=== PATIENT | female | born 1980 | race Caucasian/White ===

== ENCOUNTER 2019-07-13 10:59 | Emergency (ER) | payer BC ==
[2019-07-13 11:56] LABS: Urine Blood TRACE (NEG); Urine Glucose NEGATIVE (NEG); Urine Protein NEGATIVE (NEG); Urine pH 5.5 (5.0-7.0)
[2019-07-13] MEDS ORDERED: KETOROLAC 30 MG/ML INJ ONE (12:08)
[2019-07-13 12:42] LABS: Urine Bacteria <20 /HPF (<20); Urine Culture Reflex Order NOT NEEDED; Urine RBC <5 /HPF (NONE SEEN)
--- NOTE | 2019-07-13 13:19 | ER ---
Nurse's Notes [facility] Name: Amanda Ingram Age: 38 yrs Sex: Female : 1980 Arrival Date: 07/13/2019 Time: 11:03 Bed 19 Private MD: Diagnosis: Pelvic muscle wasting;Pelvic and perineal pain Presentation: 07/13 11:14 Presenting complaint: Patient states: something is wrong with my bladder, i went to [facility] urgent care yesterday, they did the stick test on my urine, they gave me my $ back because they couldn't culture my urine, i feel like my bladder has dropped and i feel a lot of pressure, i feel like i have to pee all the time. dave tried the azo otc and i just got antibiotics for strep. Transition of care: patient was not received from another setting of care. Onset of symptoms was July 13, 2019. Risk Assessment: Do you want to hurt yourself or someone else? Patient reports no desire to harm self or others. Initial Sepsis Screen: Does the patient meet any 2 criteria? No. Patient's initial sepsis screen is negative. Does the patient have a suspected source of infection? No. Patient's initial sepsis screen is negative. Care prior to arrival: None. 11:14 Method Of Arrival: Ambulatory tw2 11:14 Acuity: JAQUAN 3 tw2 Triage Assessment: 11:15 General: Appears in no apparent distress. uncomfortable, well groomed, Behavior is tw2 calm, cooperative, appropriate for age. Pain: Complains of pain in pelvis. : Reports burning with urination, pain with urination, and pressure in vaginal area "i feel like my bladder has dropped" urinary frequency. 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 - Coronavirus screen:: The patient has NOT traveled to [place], [place], or [place] in the past 14 days. - Social history:: Smoking status: . - Ebola Screening: : Patient denies travel to an Ebola-affected area in the 21 days before illness onset. Screenin:10 Abuse screen: Denies threats or abuse. Nutritional screening: No deficits noted. Tuberculosis screening: No symptoms or risk factors identified. Fall Risk None identified. Assessment: 11:59 General: Appears uncomfortable, Behavior is calm, cooperative, appropriate for age. Pain: Complains of pain in groin and suprapubic area Pain does not radiate. Pain currently is 6 out of 10 on a pain scale. Quality of pain is described as pressure, Pain began Wednesday Is continuous, Alleviated by nothing. Neuro: Level of Consciousness is awake, alert, obeys commands, Oriented to person, place, time, situation. Cardiovascular: Heart tones S1 S2 present Capillary refill < 3 seconds Pulses are all present. are palpable in right radial artery, right dorsalis pedis artery, left radial artery and left dorsalis pedis artery. Respiratory: Airway is patent Breath sounds are clear bilaterally. GI: Abdomen is distended, Bowel sounds present X 4 quads. Abdomen is tender to palpation suprapubic area Patient currently denies nausea. : Bladder is distended Reports pressure and frequency. EENT: No signs and/or symptoms were reported regarding the EENT system. Derm: Skin is intact, Skin is dry, Skin is pink, warm \\T\\ dry. Musculoskeletal: No deficits noted. Vital Signs: 11:16 BP 129 / 102; Pulse 108; Resp 17; Temp 97.3(TE); Pulse Ox 96% on R/A; Weight 111.13 kg tw2 (R); Height 5 ft. 9 in. (175.26 cm); Pain 6/10; 12:37 BP 111 / 59; Pulse 90; Resp 18; Pulse Ox 95% on R/A; ah 13:03 BP 124 / 86; Pulse 94; Resp 16; Pulse Ox 97% ; sv 11:16 Body Mass Index 36.18 (111.13 kg, 175.26 cm) tw2 ED Course: 11:03 Patient arrived in ED. mr 11:15 Triage completed. tw2 11:15 Arm band placed on. tw2 11:49 Mariela Gustafson [facility]C [facility]. snw 11:49 Alexander Sun MD is Attending Physician. snw 11:49 Matilda Latham, MARIA T is Primary Nurse. 12:08 Urine Microscopic Only Sent. sv 12:08 Urine Culture Sent. sv 12:08 Urine Dipstick--Ancillary (enter results) Sent. sv 12:10 Patient has correct armband on for positive identification. Bed in low position. Call light in reach. 13:28 No provider procedures requiring assistance completed. Patient did not have IV access sv during this emergency room visit. Administered Medications: 12:07 Drug: TORadol 30 mg Route: IM; Site: right deltoid; sv 13:29 Follow up: Response: No adverse reaction sv Outcome: 13:18 Discharge ordered by . snw 13:29 Discharged to home ambulatory. sv 13:29 Condition: stable 13:29 Discharge instructions given to patient, Instructed on discharge instructions, follow up and referral plans. medication usage, sitz bath with baking soda on a towel. Demonstrated understanding of instructions, follow-up care, medications, Prescriptions given X 2. 13:30 Patient left the ED. sv Signatures: Jenny Bassett, RN RN Mariela Gustafson, QUOTER-C QUOTER-Csnw Citlali Gutierrez Blanche Garsia, RN RN tw2 Matilda Latham, RN RN
--- NOTE | 2019-07-13 13:20 | EDPHYS ---
Physician Documentation [facility] Name: Amanda Ingram Age: 38 yrs Sex: Female : 1980 Arrival Date: 07/13/2019 Time: 11:03 Bed 19 Private MD: ED Physician Alexander Sun HPI: 07/13 11:59 This 38 yrs old Female presents to ER via Ambulatory with complaints of snw Urinary Problem. 11:59 Onset: The symptoms/episode began/occurred acutely. Associated signs and symptoms: snw Pertinent positives: heaviness/pressure in suprapubic area. The patient has not experienced similar symptoms in the past. The patient has been recently seen by a physician: with different complaint(s), the patient was seen for Sinusitis, finished Augmentin, The patient has been recently seen at an urgent care, today, for similar complaints, and was sent to the [facility] Emergency Department for further evaluation. 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 - Coronavirus screen:: The patient has NOT traveled to [place], [place], or [place] in the past 14 days. - Social history:: Smoking status: . - Ebola Screening: : Patient denies travel to an Ebola-affected area in the 21 days before illness onset. ROS: 11:57 Constitutional: Negative for fever, chills, and weight loss, Eyes: Negative for injury, snw pain, redness, and discharge, ENT: Negative for injury, pain, and discharge, Neck: Negative for injury, pain, and swelling, Cardiovascular: Negative for chest pain, palpitations, and edema, Respiratory: Negative for shortness of breath, cough, wheezing, and pleuritic chest pain, Abdomen/GI: Negative for abdominal pain, nausea, vomiting, diarrhea, and constipation, Back: Negative for injury and pain, MS/Extremity: Negative for injury and deformity, Skin: Negative for injury, rash, and discoloration, Neuro: Negative for headache, weakness, numbness, tingling, and seizure, Psych: Negative for depression, anxiety, suicide ideation, homicidal ideation, and hallucinations. 11:57 : Positive for urinary symptoms, burning with urination, partial hyst, sensation of heaviness and pulling in suprapubic area. Pt just finished Augmentin and has been taking Azo and yeast meds without relief. Exam: 11:56 Head/Face: Normocephalic, atraumatic. Eyes: Pupils equal round and reactive to light, snw extra-ocular motions intact. Lids and lashes normal. Conjunctiva and sclera are non-icteric and not injected. Cornea within normal limits. Periorbital areas with no swelling, redness, or edema. ENT: Nares patent. No nasal discharge, no septal abnormalities noted. Tympanic membranes are normal and external auditory canals are clear. Oropharynx with no redness, swelling, or masses, exudates, or evidence of obstruction, uvula midline. Mucous membranes moist. Neck: Trachea midline, no thyromegaly or masses palpated, and no cervical lymphadenopathy. Supple, full range of motion without nuchal rigidity, or vertebral point tenderness. No Meningismus. Chest/axilla: Normal chest wall appearance and motion. Nontender with no deformity. No lesions are appreciated. 11:56 Respiratory: Lungs have equal breath sounds bilaterally, clear to auscultation and percussion. No rales, rhonchi or wheezes noted. No increased work of breathing, no retractions or nasal flaring. Back: No spinal tenderness. No costovertebral tenderness. Full range of motion. 11:56 Skin: Warm, dry with normal turgor. Normal color with no rashes, no lesions, and no evidence of cellulitis. MS/ Extremity: Pulses equal, no cyanosis. Neurovascular intact. Full, normal range of motion. Neuro: Awake and alert, GCS 15, oriented to person, place, time, and situation. Cranial nerves II-XII grossly intact. Motor strength 5/5 in all extremities. Sensory grossly intact. Cerebellar exam normal. Normal gait. Psych: Awake, alert, with orientation to person, place and time. Behavior, mood, and affect are within normal limits. 11:56 Constitutional: The patient appears alert, awake, anxious, obese, uncomfortable. 11:56 Cardiovascular: Rate: tachycardic, Rhythm: regular, Pulses: no pulse deficits are appreciated. 11:56 Abdomen/GI: Inspection: gravid appearance, is noted, obese Bowel sounds: normal, Palpation: mild abdominal tenderness, in the suprapubic area. 13:16 : external genitalia normal, no candidal appearance, no rash, no lesions. snw Vital Signs: 11:16 BP 129 / 102; Pulse 108; Resp 17; Temp 97.3(TE); Pulse Ox 96% on R/A; Weight 111.13 kg tw2 (R); Height 5 ft. 9 in. (175.26 cm); Pain 6/10; 12:37 BP 111 / 59; Pulse 90; Resp 18; Pulse Ox 95% on R/A; ah 13:03 BP 124 / 86; Pulse 94; Resp 16; Pulse Ox 97% ; sv 11:16 Body Mass Index 36.18 (111.13 kg, 175.26 cm) tw2 MDM: 11:50 Patient medically screened. snw 13:20 Data reviewed: vital signs, nurses notes. Data interpreted: Pulse oximetry: on room air snw is 97 %. Interpretation: normal. Counseling: I had a detailed discussion with the patient and/or guardian regarding: the historical points, exam findings, and any diagnostic results supporting the discharge/admit diagnosis, the presence of at least one elevated blood pressure reading (>120/80) during this emergency department visit, lab results, radiology results, the need for outpatient follow up, to return to the emergency department if symptoms worsen or persist or if there are any questions or concerns that arise at home. Response to treatment: the patient's symptoms have mildly improved after treatment. Special discussion: Based on the history and exam findings, there is no indication for further emergent testing or inpatient evaluation. I discussed with the patient/guardian the need to see the OB Gyne specialist for further evaluation of the symptoms. 07/13 11:50 Order name: Urine Culture [facility] 07/13 11:50 Order name: Urine Microscopic Only sn 07/13 11:54 Order name: Urine Dipstick--Ancillary (enter results) em1 07/13 11:57 Order name: Urine Dipstick-Ancillary; Complete Time: 12:00 EDMS 07/13 12:44 Order name: Urine Microscopic Only; Complete Time: 12:49 EDMS 07/13 11:50 Order name: Urine Dipstick-Ancillary (obtain specimen); Complete Time: 11:51 snw Administered Medications: 12:07 Drug: TORadol 30 mg Route: IM; Site: right deltoid; sv 13:29 Follow up: Response: No adverse reaction sv Disposition: 16:31 Co-signature as Attending Physician, Alexander Sun MD. rn Disposition: 07/13/19 13:18 Discharged to Home. Impression: Pelvic muscle wasting, Pelvic and perineal pain. - Condition is Stable. - Discharge Instructions: Pelvic Pain, Female, Pelvic Organ Prolapse, Heat Therapy. - Prescriptions for Mobic 7.5 mg Oral Tablet - take 1 tablet by ORAL route once daily take with food; 20 tablet. Miralax 17 gram/dose Oral - take 1 packet by ORAL route once daily dilute powder in 8 ounces of water or juice; 1 box. - Work release form, Medication Reconciliation Form, Thank You Letter, Antibiotic Education, Prescription Opioid Use form. - Follow up: Emergency Department; When: As needed; Reason: Worsening of condition. Follow up: Private Physician; When: 2 - 3 days; Reason: Recheck today's complaints, Continuance of care, Re-evaluation by your physician. Signatures: Dispatcher [employer] Jenny Womack RN RN sv Therrien, Shelly, TELEPHONE ADVICE NURSE-C TELEPHONE ADVICE NURSE-Csnw Alexander Sun MD MD rn Wise, Tara, RN RN tw2 Corrections: (The following items were deleted from the chart) 13:30 13:18 07/13/2019 13:18 Discharged to Home. Impression: Pelvic muscle wasting; Pelvic sv and perineal pain. Condition is Stable. Forms are Medication Reconciliation Form, Thank You Letter, Antibiotic Education, Prescription Opioid Use. Follow up: Emergency Department; When: As needed; Reason: Worsening of condition. Follow up: Private Physician; When: 2 - 3 days; Reason: Recheck today's complaints, Continuance of care, Re-evaluation by your physician. snw
[2019-07-13 13:42] VITALS: TEMP 97.3
[2019-07-13 13:45] VITALS: BP 124/86; O2SAT 97
== END 2019-07-13 13:30 | disposition home or self-care (01) ==
LOC: ER 10:59
DX: N81.84 Pelvic muscle wasting (principal)
CPT/HCPCS: 81003; 81015; 87086; 87088; 96372; 99283

== ENCOUNTER 2024-05-18 14:43 | Emergency (ER) | payer BC ==
--- OUTSIDE RECORDS SUMMARY | 2024-05-18 14:46 | XMS REPORT | Continuity of Care Document ---
Author Name Unknown Address [address] [facility] Address 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 Name Role Phone OSMIN MARÍA Attending Clinician Unavailable ALANIS REDDY Attending Clinician UnavailJAIME Chino Attending Clinician Unavailable YOGESH GHOSH Attending Clinician Unavailable YEN Attending Clinician Unavailable JEFF MORRISON Attending Clinician Unavailab le LAB90 Attending Clinician Unavailable SIMIN LEBRON Attending Clinician Unavailable ESDRAS FORTUNE Attending Clinician Unavailable WILMER MARS Attending Clinician Unava ilALYSA Tejada Attending Clinician Unavailable BASILIA KAM Attending Clinician Unavailable MD PETE Attending Clinician Unavailab mark HAJI, BDElliott Attending Clinician Unavailable Payers Payer Name Policy Type Policy Number Effective Date Expirati on Date Source [facility] 2 [id number] 2022 00:00:00 Problems Condition Name Condition Details Condition Category Status Onset Date Resolution Date Last Treatment Date Treating Clinician Comments Source Hypothyroi dism Hypothyroi dism Disease Active 09-09 00:00: 00 Allie Mckeon Externa amairani BMI 37.0-37.9, adult BMI 37.0-37.9, adult Disease Active 09-09 00:00: 00 Allie Mckeon Externa amairani Mood disorder Mood disorder Disease Active 09-09 00:00: 00 Allie Mckeon Externa amairani ARMANDO (generaliz ed anxiety disorder) ARMANDO (generaliz ed anxiety disorder) Disease Active 09-09 00:00: 00 Allie Seybold - Externa l Social History Social Habit Start Date Stop Date Quantity Comments Source Gender identity Fouzia bel Garcia - External Sexual orientation Kira dariel Garcia - External History of tobacco use Cigarette Smoker Allie Violeta patel - External ASSERTION Not Allie Jose - External Alcoholic beverage intake 2024-02-22 00:00:00 2024-02-22 00:00:00 .14 /d Allie Garcia - External Cigarettes smoked current (pack per day) - Reported 2024-02-22 00:00:00 2024-02-22 00:00:00 Allie Garcia - External Cigarette pack-years 2024-02-22 00:00:00 2024-02-22 00:00:00 Allie Garcia - External Tobacco use and exposure 2024-02-22 00:00:00 2024-02-22 00:00:00 Smokeless tobacco non-user Allie Garcia - External Alcohol intake 2023-08-25 00:00:00 2023-08-25 00:00:00 Current drinker of alcohol (finding) Allie Garcia - External History of Social function 2023-02-22 00:00:00 2023-02-22 00:00:00 Allie Garcia - External Alcohol Comment 2022-09-08 00:00:00 2022-09-08 00:00:00 socially only Allie Jose - External Sex 2022-08-26 12:55:20 2022-08-26 12:55:20 Female (finding) Allie Garcia - External Sex assigned at 1980 00:00:00 1980 00:00:00 F Allie Garcia - External Smoking Status Start Date Stop Date Source Ex-smoker 2024-02-22 00:00:00 2024-02-22 00:00:00 Kira dariel Garcia - External Medications Ordered Medication Name Filled Medication Name Start Date Stop Date Current Medication? Ordering Clinician Indication Dosage Frequency Signature (SIG) Comments Components Source methylPREDN ISolone 4 MG oral Tablet Therapy Pack 2023-06 0- 00:00: 00 Yes [id number] Take 1 mindy by mouth See Admin Instructio ns Use as directed. Allie Mckeon Externa l Lidocaine HCl (Lidocaine Viscous HCl) 2 % mouth/throa t Solution 2023-06 00:00: 00 Yes [id number] 5 mL swished in the mouth and spit out or swallow every 3 hours (maximum: 4.5 mg/kg [or 300 mg per dose]; 8 doses per 24-hour period). Allie bales Amoxicillin 875 MG oral Tablet 2023-06 00:00: 00 04-02 04:59 :00 Yes [id number] 875mg Q.5D Take 1 tablet (875 mg total) by mouth 2 times daily for 7 days. Allie bales Diethylprop ion HCl CR 75 MG oral TABLET SR 24 HR 03-03 00:00: 00 Yes [id number] 1{tbl} QD Take 1 tablet by mouth daily. Allie bales Cyanocobala min (VIT B12) injection 1,000 mcg 02-21 16:52: 27 No [id number] 1000ug 1,000 mcg, intramuscu lar, ONCE, On Wed02/22/24 at 1630, For 1 dose Allie bales Propranolol HCl 10 MG oral Tablet 02-21 15:52: 32 Yes [id number] 10mg Take 1 tablet (10 mg total) by mouth as needed. Allie bales Tirzepatide (Mounjaro) 12.5 MG/0.5ML subcutaneou s Solution Pen-injecto r 02-21 00:00: 00 Yes [id number] 12.5mg Q1W Inject 0.5 mL (12.5 mg total) into the skin once a week. Allie bales Diethylprop ion HCl CR 75 MG oral TABLET SR 24 HR 02-21 00:00: 00 Yes [id number] 1{tbl} QD Take 1 tablet by mouth daily. Allie bales Phentermine HCl 15 MG oral Capsule 02-08 00:00: 00 02-21 00:00 :00 No [id number] 15mg take 1 capsule by mouth every morning Allie bales Mounjaro 10 MG/0.5ML subcutaneou s Solution Pen-injecto r 7-28 00:00: 00 02-21 00:00 :00 No [id number] Inject 1 injection into the skin once a week for 4 weeks Allie bales Valacyclovi r HCl 1 g oral Tablet 5-31 00:00: 00 Yes [id number] 2000mg Q.5D Take 2 tablets (2,000 mg total) by mouth 2 times daily. Allie bales Phentermine HCl 15 MG oral Capsule 10-28 00:00: 00 Yes [id number] 15mg Take 1 capsule (15 mg total) by mouth every morning. Allie bales Oxybutynin Chloride (Ditropan XL) 5 MG oral TABLET SR 24 HR 10-28 00:00: 00 Yes [id number] 5mg QD Take 1 tablet (5 mg total) by mouth daily. Allie bales Mounjaro 10 MG/0.5ML subcutaneou s Solution Pen-injecto r 20 00:00: 00 Yes [id number] Inject 1 injection into the skin once a week for 4 weeks Allie bales Levothyroxi ne Sodium 150 MCG oral Tablet 10-24 00:00: 00 Yes [id number] 150ug QD Take 1 tablet (150 mcg total) by mouth daily. Allie bales Cranberry (Ellura) 200 MG oral Capsule 10-21 00:00: 00 Yes Take once daily. Allie bales Phentermine HCl 15 MG oral Capsule 30 00:00: 00 10-28 00:00 :00 No [id number] 15mg TAKE 1 CAPSULE BY MOUTH EVERY MORNING Allie bales Nystatin [id number] UNIT/GM apply externally Cream -23 00:00: 00 10-28 00:00 :00 No [id number] Insert 1 suppositor y (100,000 units) into the vagina nightly for 14 nights. Allie bales Amoxicillin -Pot Clavulanate 875-125 MG oral Tablet 18 00:00: 00 10-28 00:00 :00 No [id number] 1{tbl} Take 1 tablet by mouth 2 times daily. Allie bales levoFLOXaci n 750 MG oral Tablet 09-20 00:00: 00 10-28 00:00 :00 No [id number] 750mg Take 1 tablet (750 mg total) by mouth daily. Allie bales Fluconazole 150 MG oral Tablet 09-20 00:00: 00 10-28 00:00 :00 No [id number] 150mg Take 1 tablet (150 mg total) by mouth once a week. Allie bales Nitrofurant oin Monohyd Macro (Macrobid) 100 MG oral Capsule 09-13 00:00: 00 09-20 00:00 :00 No [id number] 100mg Take 1 capsule (100 mg total) by mouth 2 times daily. Allie bales Cephalexin 500 MG oral Capsule 08-24 16:06: 56 08-24 00:00 :00 No TAKE 1 CAPSULE BY MOUTH IN THE MORNING AND AT NOON AND IN THE EVENING Allie bales Propranolol HCl 10 MG oral Tablet 08-24 15:55: 28 Yes [id number] 10mg Take 1 tablet (10 mg total) by mouth as needed. Allie bales Cephalexin 500 MG oral Capsule 08-24 00:00: 00 Yes [id number] TAKE 1 CAPSULE BY MOUTH IN THE MORNING AND AT NOON AND IN THE EVENING. Allie bales Fluconazole 150 MG oral Tablet 08-24 00:00: 00 Yes [id number] Take 1 tab today and then 1 tab in 5 days. Allie bales Phentermine HCl 15 MG oral Capsule 08-24 00:00: 00 Yes [id number] 15mg Take 1 capsule (15 mg total) by mouth every morning. Allie bales Phenazopyri dine HCl 200 MG oral Tablet 08-13 00:00: 10-28 00:00 :00 No 200mg Take 1 tablet (200 mg total) by mouth 3 times daily. Allie bales Valacyclovi r HCl 1 g oral Tablet 08-10 00:00: 00 Yes Allie balse Mounjaro 7.5 MG/0.5ML subcutaneou s Solution Pen-injecto r 08-10 00:00: 00 Yes 7.5mg Inject 0.5 mL (7.5 mg total) into the skin once a week. Allie bales Cyclobenzap rine HCl 10 MG oral Tablet 08-08 00:00: 10-28 00:00 :00 No 10mg Q.[id number] 3D Take 1 tablet (10 mg total) by mouth 3 times daily as needed for muscle spasms. Allie bales Ibuprofen (MOTRIN) 600 MG oral Tablet 08-08 00:00: 10-28 00:00 :00 No 600mg Q.25D Take 1 tablet (600 mg total) by mouth every 6 hours as needed for pain. Allie bales predniSONE (DELTASONE) 10 MG oral tablet 08-08 00:00: 00 08-21 04:59 :00 No Take 4 tablets (40 mg total) by mouth daily for 3 days, THEN 3 tablets (30 mg total) daily for 3 days, THEN 2 tablets (20 mg total) daily for 3 days, THEN 1 tablet (10 mg total) daily for 3 days. Allie bales Propranolol HCl 10 MG oral Tablet 08-04 11:25: 06 Yes [id number] 10mg Take 1 tablet (10 mg total) by mouth as needed. Allie bales Fluconazole 150 MG oral Tablet 08-04 00:00: 00 05:59 :00 No [id number] 150mg Take 1 tablet (150 mg total) by mouth once for 1 dose. Allie bales Fluconazole 150 MG oral Tablet 08-03 00:00: 00 08-24 00:00 :00 No Allie bales Amitriptyli ne HCl 100 MG oral Tablet 07-21 16:59: 24 07-21 00:00 :00 No [id number] 100mg Take 1 tablet (100 mg total) by mouth nightly. Allie bales Escitalopra m Oxalate 20 MG oral Tablet 07-21 16:59: 24 07-21 00:00 :00 No [id number] 20mg Take 1 tablet (20 mg total) by mouth 2 times daily. Allie bales Lamotrigine (LaMICtal) 100 MG oral Tablet 07-21 16:59: 24 07-21 00:00 :00 No [id number] 100mg Take 1 tablet (100 mg total) by mouth 2 times daily. Allie bales Propranolol HCl 10 MG oral Tablet 07-21 16:19: 54 Yes [id number] 10mg Take 1 tablet (10 mg total) by mouth as needed. Allie bales Tirzepatide (Mounjaro) 10 MG/0.5ML subcutaneou s Solution Pen-injecto r 07-21 00:00: 00 Yes [id number] 10mg Inject 0.5 mL (10 mg total) into the skin once a week. Allie bales Amitriptyli ne HCl 100 MG oral Tablet 07-21 00:00: 00 Yes [id number] 100mg QD Take 1 tablet (100 mg total) by mouth nightly. Allie bales Escitalopra m Oxalate 20 MG oral Tablet 07-21 00:00: 00 Yes [id number] 20mg Q.5D Take 1 tablet (20 mg total) by mouth 2 times daily. Allie bales Lamotrigine (LaMICtal) 100 MG oral Tablet 07-21 00:00: 00 Yes [id number] 100mg Q.5D Take 1 tablet (100 mg total) by mouth 2 times daily. Allie bales Ondansetron (ZOFRAN) 4 MG oral TABLET DISPERSIBLE 07-21 00:00: 00 Yes [id number] 4mg Q.[id number] 3D Take 1 tablet (4 mg total) by mouth every 8 hours as needed for nausea. Allie bales Semaglutide -Weight Management (Wegovy) 1.7 MG/0.75ML subcutaneou s Solution Auto-inject or 07-21 00:00: 00 07-21 00:00 :00 No [id number] 1.7mg Inject 1.7 mg into the skin once a week. Allie bales linaCLOtide (Linzess) 145 MCG oral Capsule 07-19 00:00: 00 Yes [id number] 145ug QD Take 1 capsule (145 mcg total) by mouth daily. Allie bales Amitriptyli ne HCl 100 MG oral Tablet 2022-06 14:36: 17 Yes [id number] 100mg Take 1 tablet (100 mg total) by mouth nightly. Allie bales Escitalopra m Oxalate 20 MG oral Tablet 2022-06 14:36: 17 Yes [id number] 20mg Take 1 tablet (20 mg total) by mouth 2 times daily. Allie bales Lamotrigine (LaMICtal) 100 MG oral Tablet 2022-06 14:36: 17 Yes [id number] 100mg Take 1 tablet (100 mg total) by mouth 2 times daily. Allie bales Propranolol HCl 10 MG oral Tablet 2022-06 14:36: 17 Yes [id number] 10mg Take 1 tablet (10 mg total) by mouth as needed. Allie bales methylPREDN ISolone 4 MG oral Tablet Therapy Pack 2022-06 00:00: 00 Yes [id number] 1{mindy} Take 1 mindy by mouth See Admin Instructio ns Use as directed. Allie bales Ibuprofen (MOTRIN) 800 MG oral Tablet 2022-06 00:00: 00 02-21 00:00 :00 No [id number] 800mg Q.25D Take 1 tablet (800 mg total) by mouth every 6 hours as needed for pain. Allie bales Azithromyci n 250 MG oral Tablet 2022-06 00:00: 00 03-22 04:59 :00 No [id number] Take 2 tablets by mouth on day 1 then 1 tablet by mouth daily for 4 days thereafter .. Allie bales Amitriptyli ne HCl 100 MG oral Tablet 02-24 15:30: 07 Yes [id number] 100mg Take 1 tablet (100 mg total) by mouth nightly. Allie bales Escitalopra m Oxalate 20 MG oral Tablet 02-24 15:30: 07 Yes [id number] 20mg Take 1 tablet (20 mg total) by mouth 2 times daily. Allie bales Lamotrigine (LaMICtal) 100 MG oral Tablet 02-24 15:30: 07 Yes [id number] 100mg Take 1 tablet (100 mg total) by mouth 2 times daily. Allie bales Propranolol HCl 10 MG oral Tablet 02-24 15:30: 07 Yes [id number] 10mg Take 1 tablet (10 mg total) by mouth as needed. Allie bales Phentermine HCl 15 MG oral Capsule 02-24 00:00: 00 08-24 00:00 :00 No [id number] 15mg Take 1 capsule (15 mg total) by mouth every morning. Allie bales Semaglutide -Weight Management (Wegovy) 1 MG/0.5ML subcutaneou s Solution Auto-inject or 02-24 00:00: 00 07-21 00:00 :00 No [id number] 1mg Inject 1 mg into the skin once a week. Allie bales Linzess 145 MCG oral Capsule 01-25 00:00: 00 Yes [id number] 145ug TAKE 1 CAPSULE(14 5 MCG) BY MOUTH DAILY Allie bales Amitriptyli ne HCl 100 MG oral Tablet 01-08 14:53: 56 Yes [id number] 100mg Take 1 tablet (100 mg total) by mouth nightly Allie bales Escitalopra m Oxalate 20 MG oral Tablet 01-08 14:53: 56 Yes [id number] 20mg Take 1 tablet (20 mg total) by mouth 2 times daily Allie bales Lamotrigine (LaMICtal) 100 MG oral Tablet 01-08 14:53: 56 Yes [id number] 100mg Take 1 tablet (100 mg total) by mouth 2 times daily Allie bales Propranolol HCl 10 MG oral Tablet 01-08 14:53: 56 Yes [id number] 10mg Take 1 tablet (10 mg total) by mouth as needed Allie bales Phenazopyri dine HCl 200 MG oral Tablet 01-08 00:00: 00 07-21 00:00 :00 No [id number] 200mg Q.[id number] 3D Take 1 tablet (200 mg total) by mouth 3 times daily as needed for pain Allie bales Ciprofloxac in HCl (Cipro) 500 MG oral Tablet 01-08 00:00: 00 01-16 04:59 :00 No [id number] 500mg Take 1 tablet (500 mg total) by mouth 2 times daily for 7 days Allie bales Fluconazole 150 MG oral Tablet 01-08 00:00: 00 01-09 04:59 :00 No [id number] 150mg Take 1 tablet (150 mg total) by mouth once for 1 dose Allie bales Amitriptyli ne HCl 100 MG oral Tablet 11-24 14:58: 08 Yes [id number] 100mg Take 1 tablet (100 mg total) by mouth nightly Allie bales Escitalopra m Oxalate 20 MG oral Tablet 11-24 14:58: 08 Yes [id number] 20mg Take 1 tablet (20 mg total) by mouth 2 times daily Allie bales Lamotrigine (LaMICtal) 100 MG oral Tablet 11-24 14:58: 08 Yes [id number] 100mg Take 1 tablet (100 mg total) by mouth 2 times daily Allie bales Propranolol HCl 10 MG oral Tablet 11-24 14:58: 08 Yes [id number] 10mg Take 1 tablet (10 mg total) by mouth as needed. Allie bales linaCLOtide (Linzess) 145 MCG oral Capsule 11-24 00:00: 00 Yes [id number] 145ug Take 1 capsule (145 mcg total) by mouth daily Allie bales Albuterol HFA 108 (90 Base) MCG/ACT IN AERS 11-24 00:00: 00 10-28 00:00 :00 No [id number] 2{puff} Q.25D Inhale 2 puffs into the lungs every 6 hours as needed for wheezing Allie bales Pseudoeph-B romphen-DM 30-2-10 MG/5ML oral Syrup 11-24 00:00: 00 07-21 00:00 :00 No [id number] 10mL Q.25D Take 10 mL by mouth 4 times daily as needed Allie bales Semaglutide -Weight Management (Wegovy) 1 MG/0.5ML subcutaneou s Solution Auto-inject or 11-24 00:00: 00 02-24 00:00 :00 No [id number] 1mg Inject 1 mg into the skin once a week Allie bales Semaglutide -Weight Management (Wegovy) 1 MG/0.5ML subcutaneou s Solution Auto-inject or 11-11 00:00: 00 11-24 00:00 :00 No [id number] 1mg Inject 1 mg into the skin once a week Allie bales Mounjaro 7.5 MG/0.5ML subcutaneou s Solution Pen-injecto r 11-10 00:00: 00 07-21 00:00 :00 No Allie bales Levothyroxi ne Sodium 150 MCG oral Tablet 10-27 13:12: 11 10-27 00:00 :00 No [id number] 150ug Take 1 tablet (150 mcg total) by mouth daily Allie bales Amitriptyli ne HCl 100 MG oral Tablet 10-27 12:52: 30 Yes [id number] 100mg Take 1 tablet (100 mg total) by mouth nightly Allie bales Escitalopra m Oxalate 20 MG oral Tablet 10-27 12:52: 30 Yes [id number] 20mg Take 1 tablet (20 mg total) by mouth 2 times daily Allie bales Lamotrigine (LaMICtal) 100 MG oral Tablet 10-27 12:52: 30 Yes [id number] 100mg Take 1 tablet (100 mg total) by mouth 2 times daily Allie bales Propranolol HCl 10 MG oral Tablet 10-27 12:52: 30 Yes [id number] 10mg Take 1 tablet (10 mg total) by mouth as needed Allie bales Levothyroxi ne Sodium 150 MCG oral Tablet 10-27 00:00: 00 Yes [id number] 150ug Take 1 tablet (150 mcg total) by mouth daily Allie bales Semaglutide -Weight Management (Wegovy) 1 MG/0.5ML subcutaneou s Solution Auto-inject or 10-27 00:00: 00 Yes [id number] 1mg Inject 1 mg into the skin once a week Allie bales Mounjaro 5 MG/0.5ML subcutaneou s Solution Pen-injecto r 10-07 00:00: 00 11-24 00:00 :00 No Allie bales Semaglutide -Weight Management (Wegovy) 0.5 MG/0.5ML subcutaneou s Solution Auto-inject or 10-07 00:00: 00 10-27 00:00 :00 No [id number] .5mg Inject 0.5 mg into the skin once a week Allie bales Propranolol HCl 10 MG oral Tablet 09-09 16:09: 03 Yes [id number] 10mg Take 1 tablet (10 mg total) by mouth as needed Allie bales Lamotrigine (LaMICtal) 100 MG oral Tablet 09-09 16:08: 26 Yes [id number] 100mg Take 1 tablet (100 mg total) by mouth 2 times daily Allie bales Amitriptyli ne HCl 100 MG oral Tablet 09-09 16:07: 03 Yes [id number] 100mg Take 1 tablet (100 mg total) by mouth nightly Allie bales Levothyroxi ne Sodium 150 MCG oral Tablet 09-09 16:07: 03 Yes [id number] 150ug Take 1 tablet (150 mcg total) by mouth daily Allie bales Escitalopra m Oxalate 20 MG oral Tablet 09-09 16:07: 03 Yes [id number] 20mg Take 1 tablet (20 mg total) by mouth 2 times daily Allie bales Nitrofurant oin Monohyd Macro (Macrobid) 100 MG oral Capsule 09-09 00:00: 00 Yes [id number] 100mg Take 1 capsule (100 mg total) by mouth 2 times daily Allie bales Tirzepatide (Mounjaro) 2.5 MG/0.5ML subcutaneou s Solution Pen-injecto r 09-09 00:00: 00 Yes [id number] 2.5mg Inject 0.5 mL (2.5 mg total) into the skin once a week Allie bales Ondansetron (ZOFRAN) 4 MG oral TABLET DISPERSIBLE 09-09 00:00: 00 07-21 00:00 :00 No [id number] 4mg Q.[id number] 3D Take 1 tablet (4 mg total) by mouth every 8 hours as needed for nausea Allie bales Immunizations Ordered Immunization Name Filled Immunization Name Date Status Comments Source Influenza, Injectable, Mdck, Preservative Free, Quadrivalt 2022-02-25 00:00:00 Completed Allie Seybold - External Influenza, Injectable, Mdck, Preservative Free, Quadrivalt 2022-02-25 00:00:00 Completed Allie Seybold - External Influenza, Injectable, Mdck, Preservative Free, Quadrivalt 2022-02-25 00:00:00 Completed Allie Seybold - External Influenza, Injectable, Mdck, Preservative Free, Quadrivalt 2022-02-25 00:00:00 Completed Allie Seybold - External Influenza, Seasonal, Injectable 2021-02-26 00:00:00 Completed Allie Seybold - External Influenza, Seasonal, Injectable 2021-02-26 00:00:00 Completed Allie Seybold - External Influenza, Seasonal, Injectable 2021-02-26 00:00:00 Completed Allie Seybold - External Influenza, Seasonal, Injectable 2021-02-26 00:00:00 Completed Allie Seybold - External Influenza, Seasonal, Injectable, Preservative Free 2021-02-05 00:00:00 Completed Allie Seybold - External Influenza, Seasonal, Injectable, Preservative Free 2021-02-05 00:00:00 Completed Allie Seybold - External Influenza, Seasonal, Injectable, Preservative Free 2021-02-05 00:00:00 Completed Allie Seybold - External Influenza, Seasonal, Injectable, Preservative Free 2021-02-05 00:00:00 Completed Allie Seybold - External Influenza Virus Vaccine, No Preserv, age 6 months and up 2015-05-28 00:00:00 Completed Allie Seybold - External Pneumococcal Vaccine, Polysaccharide 2015-05-28 00:00:00 Completed Allie Seybold - External Influenza Virus Vaccine, No Preserv, age 6 months and up 2015-05-28 00:00:00 Completed Allie Seybold - External Pneumococcal Vaccine, Polysaccharide 2015-05-28 00:00:00 Completed Allie Seybold - External Influenza Virus Vaccine, No Preserv, age 6 months and up 2015-05-28 00:00:00 Completed Allie Seybold - External Pneumococcal Vaccine, Polysaccharide 2015-05-28 00:00:00 Completed Allie Seybold - External Influenza Virus Vaccine, No Preserv, age 6 months and up 2015-05-28 00:00:00 Completed Allie Seybold - External Pneumococcal Vaccine, Polysaccharide 2015-05-28 00:00:00 Completed Allie Seybold - External Influenza, Injectable, Mdck, Preservative Free, Quadrivalent Unknown Completed Allie Seybold - External Influenza, Seasonal, Injectable, Preservative Free Unknown Completed Allie Sey bold - External Influenza, Seasonal, Injectable Unknown Completed Allie Seybold - External Influenza Virus Vaccine, No Preserv, age 6 months and up Unknown Completed Allie S eybold - External Pneumococcal Vaccine, Polysaccharide Unknown Completed Allie Seybol d - External Influenza, Injectable, Mdck, Preservative Free, Quadrivalent Unknown Completed Allie Seybold - External Influenza, Seasonal, Injectable, Preservative Free Unknown Completed Allie Sey bold - External Influenza, Seasonal, Injectable Unknown Completed Allie Seybold - External Influenza Virus Vaccine, No Preserv, age 6 months and up Unknown Completed Allie S eybold - External Pneumococcal Vaccine, Polysaccharide Unknown Completed Allie Seybol d - External Influenza, Injectable, Mdck, Preservative Free, Quadrivalent Unknown Completed Allie Seybold - External Influenza, Seasonal, Injectable, Preservative Free Unknown Completed Allie Sey bold - External Influenza, Seasonal, Injectable Unknown Completed Allie Seybold - External Influenza Virus Vaccine, No Preserv, age 6 months and up Unknown Completed Allie S eybold - External Pneumococcal Vaccine, Polysaccharide Unknown Completed Allie Seybol d - External Influenza, Injectable, Mdck, Preservative Free, Quadrivalent Unknown Completed Allie Seybold - External Influenza, Seasonal, Injectable, Preservative Free Unknown Completed Allie Sey bold - External Influenza, Seasonal, Injectable Unknown Completed Allie Seybold - External Influenza Virus Vaccine, No Preserv, age 6 months and up Unknown Completed Allie S eybold - External Pneumococcal Vaccine, Polysaccharide Unknown Completed Allie Seybol d - External Influenza, Injectable, Mdck, Preservative Free, Quadrivalent Unknown Completed Allie Seybold - External Influenza, Seasonal, Injectable, Preservative Free Unknown Completed Allie Sey bold - External Influenza, Seasonal, Injectable Unknown Completed Allie Seybold - External Influenza Virus Vaccine, No Preserv, age 6 months and up Unknown Completed Allie S eybold - External Pneumococcal Vaccine, Polysaccharide Unknown Completed Allie Seybol d - External Influenza, Injectable, Mdck, Preservative Free, Quadrivalent Unknown Completed Allie Seybold - External Influenza, Seasonal, Injectable, Preservative Free Unknown Completed Allie Sey bold - External Influenza, Seasonal, Injectable Unknown Completed Allie Seybold - External Influenza Virus Vaccine, No Preserv, age 6 months and up Unknown Completed Allie S eybold - External Pneumococcal Vaccine, Polysaccharide Unknown Completed Allie Seybol d - External Influenza, Injectable, Mdck, Preservative Free, Quadrivalent Unknown Completed Allie Seybold - External Influenza, Seasonal, Injectable, Preservative Free Unknown Completed Allie Sey bold - External Influenza, Seasonal, Injectable Unknown Completed Allie Seybold - External Influenza Virus Vaccine, No Preserv, age 6 months and up Unknown Completed Allie S eybold - External Pneumococcal Vaccine, Polysaccharide Unknown Completed Allie Seybol d - External Influenza, Injectable, Mdck, Preservative Free, Quadrivalent Unknown Completed Allie Seybold - External Influenza, Seasonal, Injectable, Preservative Free Unknown Completed Allie y bold - External Influenza, Seasonal, Injectable Unknown Completed Allie Seybold - External Influenza Virus Vaccine, No Preserv, age 6 months and up Unknown Completed Allie S eybold - External Pneumococcal Vaccine, Polysaccharide Unknown Completed Allie Seybol d - External Influenza, Injectable, Mdck, Preservative Free, Quadrivalent Unknown Completed Allie Seybold - External Influenza, Seasonal, Injectable, Preservative Free Unknown Completed Allie y bold - External Influenza, Seasonal, Injectable Unknown Completed Allie Seybold - External Influenza Virus Vaccine, No Preserv, age 6 months and up Unknown Completed Allie S eybold - External Pneumococcal Vaccine, Polysaccharide Unknown Completed Allie Seybol d - External Influenza, Injectable, Mdck, Preservative Free, Quadrivalent Unknown Completed Allie Seybold - External Influenza, Seasonal, Injectable, Preservative Free Unknown Completed Allie Sey bold - External Influenza, Seasonal, Injectable Unknown Completed Allie Seybold - External Influenza Virus Vaccine, No Preserv, age 6 months and up Unknown Completed Allie S eybold - External Pneumococcal Vaccine, Polysaccharide Unknown Completed Allie Seybol d - External Influenza, Injectable, Mdck, Preservative Free, Quadrivalent Unknown Completed Allie Seybold - External AFLURIA TRIVALENT PF(0.5mL) Unknown Completed Allie Seybold - External AFLURIA TRIVALENT MDV Unknown Completed Allie Mcdanielold - External Influenza Virus Vaccine, No Preserv, age 6 months and up Unknown Completed Allie Rader eybold - External Pneumococcal Vaccine, Polysaccharide Unknown Completed Allie Mcdanielol d - External AFLURIA TRIVALENT MDV Unknown Completed Allie Garcia - External Influenza, Injectable, Mdck, Preservative Free, Quadrivalent Unknown Completed Allie Garcia - External AFLURIA TRIVALENT PF(0.5mL) Unknown Completed Allie Garcia - External AFLURIA TRIVALENT MDV Unknown Completed Allie Mcdanielold - External Influenza Virus Vaccine, No Preserv, age 6 months and up Unknown Completed Allie Rader eybold - External Pneumococcal Vaccine, Polysaccharide Unknown Completed Allie Mcdanielol d - External AFLURIA TRIVALENT MDV Unknown Completed Allie Garcia - External Vital Signs Vital Name Observation Time Observation Value Comments S ource Systolic blood pressure 2024-02-22 20:46:00 110 mm[Hg] Allie Seybo ld - External Diastolic blood pressure 2024-02-22 20:46:00 78 mm[Hg] Allie Pantojaybo ld - External Heart rate 2024-02-22 20:46:00 82 /min Dariusz redmond Seybold - External Body temperature 2024-02-22 20:46:00 36.61 Alexa Allie Seybold - External Respiratory rate 2024-02-22 20:46:00 15 /min Allie Pantojaybold - External Body height 2024-02-22 20:46:00 175.3 cm Fouzia staples Seybold - External Body weight 2024-02-22 20:46:00 86.183 kg Fouzia staples Seybold - External BMI 2024-02-22 20:46:00 28.06 kg/m2 Fouzia staples Seybold - External Systolic blood pressure 2023-10-29 21:18:00 124 mm[Hg] Allie Seybo ld - External Diastolic blood pressure 2023-10-29 21:18:00 80 mm[Hg] Allie Pantojaybo ld - External Body temperature 2023-10-29 21:18:00 36.22 Alexa Allie Seybold - External Respiratory rate 2023-10-29 21:18:00 14 /min Allie Pantojaybold - External Body height 2023-10-29 21:18:00 175.3 cm Fouzia ey Seybold - External Body weight 2023-10-29 21:18:00 84.369 kg Fouzia ey Seybold - External BMI 2023-10-29 21:18:00 27.47 kg/m2 Fouzia ey Seybold - External Systolic blood pressure 2023-10-22 19:54:00 124 mm[Hg] Allie Seybo ld - External Diastolic blood pressure 2023-10-22 19:54:00 75 mm[Hg] Allie Seybo ld - External Heart rate 2023-10-22 19:54:00 86 /min Kelse y Seybold - External Body temperature 2023-10-22 19:54:00 36.33 Alexa Allie Seybold - External Respiratory rate 2023-10-22 19:54:00 16 /min Allie Seybold - External Body height 2023-10-22 19:54:00 175.3 cm Fouzia ey Seybold - External Body weight 2023-10-22 19:54:00 83.462 kg Fouzia ey Seybold - External BMI 2023-10-22 19:54:00 27.17 kg/m2 Fouzia ey Seybold - External Oxygen saturation in Arterial blood by Pulse oximetry 2023-10-22 19:54:00 99 /min Allie Seybo ld - External Systolic blood pressure 2023-09-21 15:35:00 110 mm[Hg] Allie Seybo ld - External Diastolic blood pressure 2023-09-21 15:35:00 72 mm[Hg] Allie Seybo ld - External Heart rate 2023-09-21 15:35:00 95 /min Kelse y Seybold - External Body temperature 2023-09-21 15:35:00 36.83 Alexa Allie Seybold - External Respiratory rate 2023-09-21 15:35:00 14 /min Allie Seybold - External Body height 2023-09-21 15:35:00 175.3 cm Fouzia ey Seybold - External Body weight 2023-09-21 15:35:00 83.915 kg Fouzia ey Seybold - External BMI 2023-09-21 15:35:00 27.32 kg/m2 Fouzia ey Seybold - External Systolic blood pressure 2023-08-25 20:31:00 110 mm[Hg] Allie Seybo ld - External Diastolic blood pressure 2023-08-25 20:31:00 72 mm[Hg] Allie Seybo ld - External Heart rate 2023-08-25 20:31:00 84 /min Kelse y Seybold - External Body temperature 2023-08-25 20:31:00 36.5 Alexa Allie Seybold - External Respiratory rate 2023-08-25 20:31:00 18 /min Allie Seybold - External Body height 2023-08-25 20:31:00 175.3 cm Fouzia ey Seybold - External Body weight 2023-08-25 20:31:00 86.183 kg Fouzia ey Seybold - External BMI 2023-08-25 20:31:00 28.06 kg/m2 Fouzia ey Seybold - External Oxygen saturation in Arterial blood by Pulse oximetry 2023-08-25 20:31:00 99 /min Allie Seybo ld - External Systolic blood pressure 2023-07-21 22:14:00 116 mm[Hg] Allie Seybo ld - External Diastolic blood pressure 2023-07-21 22:14:00 74 mm[Hg] Allie Seybo ld - External Heart rate 2023-07-21 22:14:00 87 /min Claudiose y Seybold - External Body temperature 2023-07-21 22:14:00 36.56 Alexa Allie Seybold - External Respiratory rate 2023-07-21 22:14:00 14 /min Allie Seybold - External Body height 2023-07-21 22:14:00 175.3 cm Fouzia ey Seybold - External Body weight 2023-07-21 22:14:00 89.359 kg Fouzia ey Seybold - External BMI 2023-07-21 22:14:00 29.09 kg/m2 Fouzia ey Seybold - External Systolic blood pressure 2023-03-16 19:33:00 104 mm[Hg] Allie Seybo ld - External Diastolic blood pressure 2023-03-16 19:33:00 70 mm[Hg] Allie Seybo ld - External Heart rate 2023-03-16 19:33:00 112 /min Kelse y Seybold - External Body temperature 2023-03-16 19:33:00 37 Alexa Allie Seybold - External Respiratory rate 2023-03-16 19:33:00 15 /min Allie Seybold - External Body height 2023-03-16 19:33:00 175.3 cm Fouzia ey Seybold - External Body weight 2023-03-16 19:33:00 92.534 kg Fouzia ey Seybold - External BMI 2023-03-16 19:33:00 30.13 kg/m2 Fouzia ey Seybold - External Systolic blood pressure 2023-02-24 20:29:00 103 mm[Hg] Allie Seybo ld - External Diastolic blood pressure 2023-02-24 20:29:00 79 mm[Hg] Allie Seybo ld - External Heart rate 2023-02-24 20:29:00 91 /min Kelse y Seybold - External Body temperature 2023-02-24 20:29:00 37.06 Alexa Allie Seybold - External Respiratory rate 2023-02-24 20:29:00 20 /min Allie Seybold - External Body height 2023-02-24 20:29:00 175.3 cm Fouzia ey Seybold - External Body weight 2023-02-24 20:29:00 92.987 kg Fouzia ey Seybold - External BMI 2023-02-24 20:29:00 30.27 kg/m2 Fouzia ey Seybold - External Oxygen saturation in Arterial blood by Pulse oximetry 2023-02-24 20:29:00 99 /min Allie Seybo ld - External Systolic blood pressure 2023-01-08 19:53:00 110 mm[Hg] Allie Seybo ld - External Diastolic blood pressure 2023-01-08 19:53:00 70 mm[Hg] Allie Seybo ld - External Heart rate 2023-01-08 19:53:00 83 /min Kelse y Seybold - External Body temperature 2023-01-08 19:53:00 36.56 Alexa Allie Seybold - External Body height 2023-01-08 19:53:00 175.3 cm Fouzia ey Seybold - External Body weight 2023-01-08 19:53:00 98.612 kg Fouzia ey Seybold - External BMI 2023-01-08 19:53:00 32.10 kg/m2 Fouzia ey Seybold - External Oxygen saturation in Arterial blood by Pulse oximetry 2023-01-08 19:53:00 98 /min Allie Seybo ld - External Systolic blood pressure 2022-11-24 19:56:00 112 mm[Hg] Allie Seybo ld - External Diastolic blood pressure 2022-11-24 19:56:00 76 mm[Hg] Allie Seybo ld - External Heart rate 2022-11-24 19:56:00 82 /min Kelse y Seybold - External Body temperature 2022-11-24 19:56:00 36.78 Alexa Allie Seybold - External Respiratory rate 2022-11-24 19:56:00 15 /min Allie Seybold - External Body height 2022-11-24 19:56:00 175.3 cm Fouzia ey Seybold - External Body weight 2022-11-24 19:56:00 103.874 kg Fouzia ey Seybold - External BMI 2022-11-24 19:56:00 33.82 kg/m2 Fouzia ey Seybold - External Systolic blood pressure 2022-10-27 17:47:00 112 mm[Hg] Allie Seybo ld - External Diastolic blood pressure 2022-10-27 17:47:00 70 mm[Hg] Allie Seybo ld - External Heart rate 2022-10-27 17:47:00 87 /min Kelse y Seybold - External Body temperature 2022-10-27 17:47:00 36 Alexa Allie Seybold - External Respiratory rate 2022-10-27 17:47:00 16 /min Allie Seybold - External Body height 2022-10-27 17:47:00 175.3 cm Fouzia ey Seybold - External Body weight 2022-10-27 17:47:00 107.775 kg Fouzia ey Seybold - External BMI 2022-10-27 17:47:00 35.09 kg/m2 Fouzia ey Seybold - External Oxygen saturation in Arterial blood by Pulse oximetry 2022-10-27 17:47:00 95 /min Allie Torres ld - External Systolic blood pressure 2022-09-09 20:59:00 126 mm[Hg] Allie Torres ld - External Diastolic blood pressure 2022-09-09 20:59:00 86 mm[Hg] Allie Mcdanielo ld - External Heart rate 2022-09-09 20:59:00 99 /min Dariusz y Jose - External Body temperature 2022-09-09 20:59:00 37.17 Alexa Allie Mcdanielold - External Respiratory rate 2022-09-09 20:59:00 14 /min Allie Garcia - External Body height 2022-09-09 20:59:00 175.3 cm Fouzia Garcia - External Body weight 2022-09-09 20:59:00 114.306 kg Fouzia staples Seybold - External BMI 2022-09-09 20:59:00 37.21 kg/m2 Fouzia staples Seybold - External Procedures Procedure Date / Time Performed Performing Clinicia n Source URINALYSIS NONAUTO W/O SCOPE 2022-09-09 21:16:40 María Fisher Jose - External Encounters Start Date/Time End Date/Time Encounter Type Admission Type Attending [facility] Care Department Encounter ID Source 2024-05-29 16:30:00 2024-05-29 16:30:00 Outpatient MARÍA FISHER [id number] Allie ybamanda 2024-05-01 00:00:00 2024-05-01 00:00:00 Outpatient MARÍA FISHER [id number] Allie Seybamanda 2024-04-24 16:00:00 2024-04-24 16:00:00 Outpatient ALANIS REDDY [id number] Allie Seybamanda 2024-04-21 16:00:00 2024-04-21 16:00:00 Outpatient JAIME NINA [id number] Allie Seybamanda 2024-04-17 00:00:00 2024-04-17 00:00:00 Outpatient MARÍA FISHER [id number] Allie Seybamanda 2024-04-12 00:00:00 2024-04-12 00:00:00 Outpatient HUNDL, MARÍA ALLIE GOMEZ [id number] [facility] 2024-04-03 00:00:00 2024-04-03 00:00:00 Outpatient HUNDL, MARÍA ALLIE GOMEZ [id number] [facility] 2024-03-25 15:00:00 2024-03-25 15:00:00 Outpatient AUGIEYOGESH [facility] [id number] [facility]-25 12:00:00 2024-03-25 12:00:00 Outpatient ALLIE GOMEZ [id number] [facility] 2024-02-22 16:00:00 2024-02-22 16:00:00 Outpatient HUNDL, MARÍA GOMEZ [id number] [facility] 2024-02-22 16:00:00 2024-02-22 16:00:00 Outpatient HUNDL, MARÍA GOMEZ [id number] [facility] 2024-02-08 00:00:00 2024-02-08 00:00:00 Outpatient HUNDL, MARÍA GOMEZ [id number] [facility] 2024-01-06 00:00:00 2024-01-06 00:00:00 Outpatient HUNDL, MARÍA GOMEZ [id number] [facility] 2024-01-03 00:00:00 2024-01-03 00:00:00 Outpatient HUNDL, MARÍA GOMEZ [id number] [facility] 2024-01-01 00:00:00 2024-01-01 00:00:00 Outpatient HUNDL, MAR[id number] [facility] 2023-12-01 00:00:00 2023-12-01 00:00:00 Outpatient HUNDL, MAR[facility]A [facility]OMEZ [id number] [facility] 2023-11-17 00:00:00 2023-11-17 00:00:00 Outpatient GINUR ALLIE GOMEZ [id number] [facility] 2023-11-08 16:30:00 2023-11-08 16:30:00 Outpatient HUNDL, MARÍA GOMEZ [id number] Allie Seybold 2023-11-03 00:00:00 2023-11-03 00:00:00 Outpatient HUNDL, MARÍA GOMEZ [id number] [facility]ie Seybold 2023-10-29 16:30:00 2023-10-29 16:30:00 Outpatient HUNDL, MARÍA GOMEZ [id number] [facility] Seybold 2023-10-24 00:00:00 2023-10-24 00:00:00 Outpatient HUNDL, MARÍA GOMEZ [id number] [facility] Seybold 2023-10-22 15:00:00 2023-10-22 15:00:00 Outpatient MAICOJAIME ALLIE GOMEZ [id number] [facility]ie Seybold 2023-10-21 00:00:00 2023-10-21 00:00:00 Outpatient HUNDL, MARÍA GOMEZ [id number] [facility] Seybold 2023-10-12 00:00:00 2023-10-12 00:00:00 Outpatient HUNDL, MARÍA GOMEZ [id number] [facility] Seybold 2023-10-05 00:00:00 2023-10-05 00:00:00 Outpatient HUNDL, MARÍA GOMEZ [id number] [facility] Seybold 2023-10-01 00:00:00 2023-10-01 00:00:00 Outpatient HUNDL, MARÍA GOMEZ [id number] [facility] Seybold 2023-10-01 00:00:00 2023-10-01 00:00:00 Outpatient HUNDL, MARÍA GOMEZ [id number] [facility]ie Seybold 2023-09-28 00:00:00 2023-09-28 00:00:00 Outpatient HUNDL, MARÍA GOMEZ [id number] [facility] Seybold 2023-09-28 00:00:00 2023-09-28 00:00:00 Outpatient HUNDL, MARÍA GOMEZ [id number] [facility] Seybold 2023-09-27 16:30:00 2023-09-27 16:30:00 Outpatient HUNDL, MARÍA GOMEZ [id number] [facility] Seybold 2023-09-23 00:00:00 2023-09-23 00:00:00 Outpatient HUNDAmairani, MARÍA ALLIE GOMEZ [id number] [facility] Pantojaybamanda 2023-09-21 15:00:00 2023-09-21 15:00:00 Outpatient JEFF MORRISON ALLIE GOMEZ [id number] [facility] 2023-09-21 11:25:00 2023-09-21 11:25:00 Outpatient LAB90 ALLIE GOMEZ [id number] [facility] 2023-09-21 10:30:00 2023-09-21 10:30:00 Outpatient HUNDL, MARÍA GOMEZ [id number] [facility] 2023-09-20 00:00:00 2023-09-20 00:00:00 Outpatient HUNDAmairani, MARÍA GOMEZ [id number] [facility] 2023-09-14 00:00:00 2023-09-14 00:00:00 Outpatient HUNDAmairani, MARÍA GOMEZ [id number] [facility] 2023-09-13 15:50:00 2023-09-13 15:50:00 Outpatient LAB90 ALLIE GOMEZ [id number] [facility] 2023-09-11 13:00:00 2023-09-11 13:00:00 Outpatient ALEXSIMIN ROY ALLIE GOMEZ [id number] [facility] 2023-09-10 00:00:00 2023-09-10 00:00:00 Outpatient HUNDL, MARÍA GOMEZ [id number] [facility] 2023-09-02 00:00:00 2023-09-02 00:00:00 Outpatient PREZASESDRAS [id number] [facility]ie Seybold 2023-09-02 00:00:00 2023-09-02 00:00:00 Outpatient HUNDL, MARÍA GOMEZ [id number] [facility] 2023-08-29 00:00:00 2023-08-29 00:00:00 Outpatient HUNDL, MARÍA GOMEZ [id number] [facility] 2023-08-27 00:00:00 2023-08-27 00:00:00 Outpatient MARÍA FISHER [id number] [facility] ybamanda 2023-08-26 14:30:00 2023-08-26 14:30:00 Outpatient ALLIE GOMEZ [id number] [facility] 2023-08-26 13:00:00 2023-08-26 13:00:00 Outpatient ALLIE GOMEZ [id number] [facility] 2023-08-25 16:20:00 2023-08-25 16:20:00 Outpatient LAB90 ALLIE GOMEZ [id number] [facility] y[facility]anda 2023-08-25 15:30:00 2023-08-25 15:30:00 Outpatient MARÍA FISHER [id number] [facility] 2023-08-09 19:45:00 2023-08-09 19:45:00 Outpatient WILMER MARS [id number] [facility] 2023-08-04 11:30:00 2023-08-04 11:30:00 Outpatient ALYSA ZHANG [id number] [facility] 2023-08-03 17:20:00 2023-08-03 17:20:00 Outpatient PROVIDER, BASILIA GOMEZ [id number] [facility] 2023-08-03 16:25:00 2023-08-03 16:25:00 Outpatient PROVIDER, BASILIA GOMEZ [id number] [facility] 2023-08-03 00:00:00 2023-08-03 00:00:00 Outpatient MARÍA FISHER [id number] Allie Seybold 2023-08-03 00:00:00 2023-08-03 00:00:00 Outpatient MARÍA FISHER [id number] [facility] 2023-07-22 16:30:00 2023-07-22 16:30:00 Outpatient MARÍA FISHER [id number] [facility] Seybold 2023-07-22 00:00:00 2023-07-22 00:00:00 Outpatient MARÍA FISHER [id number] [facility] 2023-07-21 16:30:00 2023-07-21 16:30:00 Outpatient HUNDL, MARÍA GOMEZ [id number] [facility] 2023-07-14 00:00:00 2023-07-14 00:00:00 Outpatient HUNDL, MARÍA GOMEZ [id number] [facility] 2023-07-01 00:00:00 2023-07-01 00:00:00 Outpatient HUNDL, MARÍA GOMEZ [id number] [facility] 2023-06-23 10:55:00 2023-06-23 10:55:00 Outpatient PROVIDER, BASILIA GOMEZ [id number] [facility]23-06-23 06:15:00 2023-06-23 06:15:00 Outpatient PROVIDER, BASILIA GOMEZ [id number] [facility] 2023-03-31 16:30:00 2023-03-31 16:30:00 Outpatient HUNDL, MARÍA GOMEZ [id number] [facility] 2023-03-16 14:30:00 2023-03-16 14:30:00 Outpatient HUNDL, MARÍA GOMEZ [id number] [facility] 2023-03-15 09:55:00 2023-03-15 09:55:00 Outpatient PROVIDER, BASILIA GOMEZ [id number] [facility] 2023-02-24 15:30:00 2023-02-24 15:30:00 Outpatient HUNDL, MARÍA GOMEZ [id number] [facility] 2023-01-25 00:00:00 2023-01-25 00:00:00 Outpatient HUNDL, MARÍA GOMEZ [id number] [facility] 2023-01-25 00:00:00 2023-01-25 00:00:00 Outpatient HUNDL, MARÍA GOMEZ [id number] [facility] 2023-01-08 15:50:00 2023-01-08 15:50:00 Outpatient LAB90 ALLIE GOMEZ [id number] [facility] 2023-01-08 15:00:00 2023-01-08 15:00:00 Outpatient HUNDL, MARÍA GOMEZ [id number] Allie amanda 2023-01-08 00:00:00 2023-01-08 00:00:00 Outpatient MD ALLIE HENRY [id number] Allie amanda 2022-11-24 15:30:00 2022-11-24 15:30:00 Outpatient HUNDL, MARÍA GOMEZ [id number] [facility] 2022-11-11 16:30:00 2022-11-11 16:30:00 Outpatient HUNDL, MARÍA GOMEZ [id number] [facility] 2022-11-10 00:00:00 2022-11-10 00:00:00 Outpatient HUNDL, MARÍA GOMEZ [id number] [facility] 2022-11-05 15:30:00 2022-11-05 15:30:00 Outpatient ALLIE GOMEZ [id number] [facility] 2022-11-03 15:30:00 2022-11-03 15:30:00 Outpatient HUNDL, MARÍA GOMEZ [id number] [facility] 2022-10-29 15:00:00 2022-10-29 15:00:00 Outpatient HUNDL, MARÍA GOMEZ [id number] [facility] 2022-10-28 14:30:00 2022-10-28 14:30:00 Outpatient HUNDL, MARÍA GOMEZ [id number] [facility] 2022-10-27 13:00:00 2022-10-27 13:00:00 Outpatient HUNDL, MARÍA GOMEZ [id number] [facility] 2022-10-23 00:00:00 2022-10-23 00:00:00 Outpatient HUNDL, MARÍA GOMEZ [id number] [facility] 2022-10-23 00:00:00 2022-10-23 00:00:00 Outpatient ESDRAS FORTUNE [id number] [facility] 2022-10-23 00:00:00 2022-10-23 00:00:00 Outpatient PREZAS, ESDRAS ALLIE GOMEZ [id number] Allie ybamanda 2022-10-23 00:00:00 2022-10-23 00:00:00 Outpatient CONFERENCE, BDC ALLIE GOMEZ [id number] [facility]ie Seybamanda 2022-10-22 15:40:00 2022-10-22 15:40:00 Outpatient ALLIE GOMEZ [id number] Allie Garcia 2022-10-19 08:30:00 2022-10-19 08:30:00 Outpatient HUNDL, MARÍA GOMEZ [id number] [facility] Panto[facility] 2022-10-07 09:30:00 2022-10-07 09:30:00 Outpatient HUNDL, MARÍA GOMEZ [id number] [facility] 2022-10-07 09:30:00 2022-10-07 09:30:00 Outpatient HUNDL, MARÍA GOMEZ [id number] Allie Garcia 2022-10-06 00:00:00 2022-10-06 00:00:00 Outpatient HUNDL, MARÍA GOMEZ [id number] Allie Garcia 2022-10-06 00:00:00 2022-10-06 00:00:00 Outpatient HUNDL, MARÍA GOMEZ [id number] Allie Garcia 2022-09-09 16:45:00 2022-09-09 16:45:00 Outpatient LAB90 ALLIE GOMEZ [id number] Allie Garcia 2022-09-09 16:00:00 2022-09-09 16:00:00 Outpatient HUNDL, MARÍA ALLIE GOMEZ [id number] [facility]ie Garcia Results Test Description Test Time Test Comments Results Result Co mments Source Allie Garcia - External
[2024-05-18] MEDS ORDERED: PHENAZOPYRIDINE 100MG TAB PO ONE (15:32)
[2024-05-18] MEDS ORDERED: ONDANSETRON 4 MG (ODT) TAB ONE (15:32)
[2024-05-18] MEDS ORDERED: KETOROLAC 30 MG/ML INJ ONE (15:32)
[2024-05-18 15:42] LABS: Specific Gravity 1.021 (1.005-1.030); Sqamous Epithelial <5 /HPF (None Seen); Urine Bacteria None Seen /HPF (<20); Urine Bilirubin NEGATIVE (Negative); Urine Blood Negative (Negative); Urine Clarity Extremely Turbid (Clear); Urine Color Yellow (Yellow); Urine Culture Reflex Order REFLEXED; Urine Glucose NEGATIVE (Negative); Urine Ketones NEGATIVE (Negative); Urine Micro Reflex YN NO BILL MICROSCOPIC; Urine Mucus Slight /HPF (None Seen); Urine Nitrite 2+ (Negative); Urine Protein NEGATIVE (Negative); Urine RBC <5 /HPF (None Seen); Urine Urobilinogen Normal (Normal); Urine WBC >50 /HPF (<5); Urine Yeast (Budding) Occasional /HPF (None Seen); Urine pH 6.5 (5.0-7.0)
[2024-05-18 15:46] LABS: Specific Gravity 1.021 (1.005-1.030)
--- NOTE | 2024-05-18 15:47 | EDPHYS ---
Physician Documentation [facility] Name: Amanda Ingram Age: 43 yrs Sex: Female : 1980 Arrival Date: 05/18/2024 Time: 14:43 Bed 11 Private MD: ED Physician Navjot Light HPI: 05/18 15:20 This 43 yrs old Female presents to ER via Ambulatory with complaints of Back ec2 Pain. 15:20 Patient arrives today for evaluation of back pain. Patient reports that she has been ec2 having some lower back pain along with dysuria and urinary frequency. Reports some decreased p.o. intake along with nausea. Denies any vomiting, diarrhea issues. Patient reports history of hypothyroidism, on levothyroxine.. TUFTER HAND: 16:04 LMP N/A - Irregular menses, Not ap3 Historical: - Allergies: 15:14 No Known Allergies; ap3 - PMHx: 15:14 None; ap3 - Immunization history:: Client reports receiving the 2nd dose of the Covid vaccine. - Infectious Disease History:: Denies. - Social history:: Smoking status: Reported history of juuling and/or vaping. ROS: 15:20 Constitutional: as per hpi ec2 Exam: 15:20 Constitutional: GEN: NAD Head: atraumatic Eyes: EOMI Ears: External ears are ec2 normal. CV: regular rate LUNGS: no respiratory distress ABD: non-distended, soft, nontender, not guarding, not rigid, right CVA TTP SKIN: no evidence of rashes MSK: no evidence of trauma Vital Signs: 15:13 BP 120 / 89; Pulse 93; Resp 17; Temp 97.4; Pulse Ox 100% ; Weight 79.38 kg; Height 5 ap3 ft. 9 in. ; Pain 8/10; 15:13 Body Mass Index 25.84 (79.38 kg, 175.26 cm) ap3 15:13 Pain Scale: Adult ap3 MDM: 15:15 Medical Screening Exam initiated ec2 15:20 Data reviewed: vital signs, nurses notes. ED course: Patient arrives today for low back ec2 pain and urinary issues. Examination revealing for abdominal findings as above. Will obtain UA as well as urine test. Will treat the patient with Toradol as well as Zofran. Differential clued UTI, pyelonephritis, . Doubt appendicitis, doubt gallbladder pathology.. 05/18 15:15 Order name: UAM; Complete Time: 15:46 ec2 05/18 15:15 Order name: Test, Urine; Complete Time: 15:47 ec2 05/18 15:48 Order name: Urine Culture EDMS Administered Medications: 15:39 Drug: Ketorolac IM 30 mg IM once Route: IM; Site: right deltoid; ap3 15:58 Follow up: Response: No adverse reaction; Pain is decreased ap3 15:39 Drug: Phenazopyridine PO 200 mg PO once Route: PO; ap3 15:58 Follow up: Response: No adverse reaction ap3 15:40 Drug: Ondansetron Oral Disintegrating Tablet Oral Disintegrating Tablet 4 mg PO once ap3 Route: PO; 15:58 Follow up: Response: No adverse reaction ap3 15:58 Drug: Trimethoprim-Sulfamethoxazole PO (160 mg-800 mg (DS) 1 tablet PO once Route: PO; ap3 16:02 Follow up: Response: Medication administered at discharge. ap3 Disposition Summary: 05/18/24 15:47 Discharge Ordered Notes: Location: Home ec2 Condition: Stable ec2 Diagnosis - UTI/ Urinary tract infection, site not specified ec2 Followup: ec2 - With: Private Physician - When: - Reason: Re-evaluation by your physician Discharge Instructions: - Discharge Summary Sheet ec2 - Urinary Tract Infection, Adult, [id number] ec2 Forms: - Medication Reconciliation Form ec2 - Antibiotic Education ec2 - Prescription Opioid Use ec2 - Patient Portal Instructions ec2 - Leadership Thank You Letter ec2 Prescriptions: - Pyridium 200 mg Oral Tablet - take 1 tablet ORAL route every 8 hours for 3 days; 9 tablet; Refills: 0, ec2 Product Selection Permitted - Bactrim DS 800-160 mg Oral Tablet - take 1 tablet ORAL route every 12 hours for 7 days; 14 tablet; Refills: 0, ec2 Product Selection Permitted Signatures: Dispatcher [employer] Amanda Kulkarni RN RN ap3 Navjot Light MD MD ec2 Corrections: (The following items were deleted from the chart) 15:16 15:16 Urinalysis W/Microscopic+U.LAB.BRZ ordered. EDMS EDMS 15:16 15:16 Test, Urine+UC.LAB.BRZ ordered. EDMS EDMS
--- NOTE | 2024-05-18 15:47 | ER ---
Nurse's Notes [facility] Name: Amanda Ingram Age: 43 yrs Sex: Female : 1980 Arrival Date: 05/18/2024 Time: 14:43 Bed 11 Private MD: Diagnosis: UTI/ Urinary tract infection, site not specified Presentation: 05/18 15:13 Chief complaint: Patient states: she is having difficulty urinating, feeling like she ap3 is not emptying her bladder. patient is also complaining of low back pain. patient reports her pain to be an 8/10 on the pain scale. Coronavirus screen: At this time, the client does not indicate any symptoms associated with coronavirus-19. Ebola Screen: No symptoms or risks identified at this time. Initial Sepsis Screen: Does the patient meet any 2 criteria? HR > 90 bpm. Does the patient have a suspected source of infection? No. Patient's initial sepsis screen is negative. Risk Assessment: Do you want to hurt yourself or someone else? Patient reports no desire to harm self or others. Onset of symptoms was May 14, 2024. 15:13 Method Of Arrival: Ambulatory ap3 15:13 Acuity: JAQUAN 3 ap3 Triage Assessment: 15:15 General: Appears in no apparent distress. Behavior is calm, cooperative, appropriate ap3 for age. Pain: Complains of pain in low back area Pain currently is 8 out of 10 on a pain scale. Neuro: Level of Consciousness is awake, alert, obeys commands, Oriented to person, place, time, situation. Cardiovascular: Patient's skin is warm and dry. Respiratory: Airway is patent Respiratory effort is even, unlabored, Respiratory pattern is regular, symmetrical. Musculoskeletal: Range of motion: intact in all extremities. COST COORDINATOR: 16:04 LMP N/A - Irregular menses, Not ap3 Historical: - Allergies: 15:14 No Known Allergies; ap3 - PMHx: 15:14 None; ap3 - Immunization history:: Client reports receiving the 2nd dose of the Covid vaccine. - Infectious Disease History:: Denies. - Social history:: Smoking status: Reported history of juuling and/or vaping. Screenin:15 [facility] ED Fall Risk Assessment (Adult) History of falling in the last 3 months, ap3 including since admission No falls in past 3 months (0 pts) Confusion or Disorientation No (0 pts) Intoxicated or Sedated No (0 pts) Impaired Gait No (0 pts) Mobility Assist Device Used No (0 pt) Altered Elimination No (0 pt) Score/Fall Risk Level 0 - 2 = Low Risk Oriented to surroundings, Maintained a safe environment, Educated pt \T\ family on fall prevention, incl call for assistance when getting out of bed, Assessed \T\ reinforced patient's understanding of fall precautions, Hourly rounding (assess needs \T\ fall precautionary measures) done, Used ambulatory aids as needed (educated on \T\ assisted with), Used gait belt as appropriate. Abuse screen: Denies threats or abuse. Nutritional screening: No deficits noted. Tuberculosis screening: No symptoms or risk factors identified. Vital Signs: 15:13 BP 120 / 89; Pulse 93; Resp 17; Temp 97.4; Pulse Ox 100% ; Weight 79.38 kg; Height 5 ap3 ft. 9 in. ; Pain 8/10; 15:13 Body Mass Index 25.84 (79.38 kg, 175.26 cm) ap3 15:13 Pain Scale: Adult ap3 ED Course: 14:45 Patient arrived in ED. ra3 14:45 Navjot Light MD is Attending Physician. ec2 15:14 Triage completed. ap3 15:15 Arm band placed on right wrist. ap3 15:29 Amanda Ruggiero, RN is Primary Nurse. ap3 16:02 Patient has correct armband on for positive identification. Provided Education on: ap3 discharge instructions . 16:02 No provider procedures requiring assistance completed. Patient did not have IV access ap3 during this emergency room visit. Administered Medications: 15:39 Drug: Ketorolac IM 30 mg IM once Route: IM; Site: right deltoid; ap3 15:58 Follow up: Response: No adverse reaction; Pain is decreased ap3 15:39 Drug: Phenazopyridine PO 200 mg PO once Route: PO; ap3 15:58 Follow up: Response: No adverse reaction ap3 15:40 Drug: Ondansetron Oral Disintegrating Tablet Oral Disintegrating Tablet 4 mg PO once ap3 Route: PO; 15:58 Follow up: Response: No adverse reaction ap3 15:58 Drug: Trimethoprim-Sulfamethoxazole PO (160 mg-800 mg (DS) 1 tablet PO once Route: PO; ap3 16:02 Follow up: Response: Medication administered at discharge. ap3 Medication: 16:03 VIS not applicable for this client. ap3 Outcome: 15:47 Discharge ordered by . ec2 16:02 Discharged to home ambulatory, ap3 16:02 Condition: good 16:02 Discharge instructions given to patient, Instructed on discharge instructions, follow up and referral plans. Demonstrated understanding of instructions, follow-up care, medications, Prescriptions given X 2, 16:05 Patient left the ED. ap3 Addendum: 05/21/2024 08:11 Addendum: Culture Results: Positive urine culture. No further action required. Bacteria e b sensitive to prescribed antibiotic. Signatures: Amanda Ruggiero RN RN ap3 Mary Gee Edwin, MD MD ec2 Lisbeth Diehl 3
[2024-05-18] MEDS ORDERED: SMZ./TMP. 800/160 MG TABLET ONE (15:56)
[2024-05-18 16:49] VITALS: BP 120/89; TEMP 97.4; O2SAT 100
== END 2024-05-18 16:05 | disposition home or self-care (01) ==
LOC: ER 14:43
DX: N39.0 Urinary tract infection, site not specified (principal); E03.9 Hypothyroidism, unspecified; F17.290 Nicotine dependence, other tobacco product, uncomplicated
CPT/HCPCS: 87088; 81001; 87086; 81025; 87077; 87186; 96372; 99284; Q0162

== ENCOUNTER 2024-05-24 17:01 | Emergency (ER) | payer BC ==
--- OUTSIDE RECORDS SUMMARY | 2024-05-24 17:06 | XMS REPORT | Continuity of Care Document ---
Author Name Unknown Address [address] [facility] [address] [id number] [facility] Address [address] [facility] [address] [place] [address] Care Team Providers Care Physical Geographer Name Role Phone OSMIN MARÍA Primary Care Physician Unavailab Giovanny Jacobs Attending Clinician Unavailable MARÍA SOLORIO Attending Clinician Unavailable ALANIS REDDY Attending Clinician UnavailJAIME Chino Attending Clinician Unavailable YOGESH GHOSH Attending Clinician Unavailable YEN Attending Clinician Unavailable JEFF MORRISON Attending Clinician Unavailab le LAB90 Attending Clinician Unavailable SIMIN LEBRON Attending Clinician Unavailable [email or web address] luis_S Attending Clinician UnavailESDRAS Melara Attending Clinician Unavailable DARI ONTIVEROS Attending Clinician Unavailable Dari Ontiveros MD Attending Clinician [phone] WILMER MARS Attending Clinician Unafederico ilALYSA Tejada Attending Clinician Unavailable BASILIA KAM Attending Clinician Unavailable MD PETE Attending Clinician Unavailab SHARON Sherwood Attending Clinician Unavailable STACEY GREGORIO Attending Clinician Unavailable Dotty Johansen Attending Clinician [phone] Asad OTOOLE, Dionicioclarisa Attending Clinician [phone] Nicho Beth DO Attending Clinician [phone] Lab, Adc Fam Pob I Attending Clinician UnavailMary Wong MD Attending Clinician [phone] MARY TAYLOR Attending Clinician Olinda Hunter MD Attending Clinician [phone] Doctor Unassigned, [place] Attending Clinician U navailable [email or web address] Admitting Clinician UnavailDARI Robins Admitting Clinician Unavailable Payers Payer Name Policy Type Policy Number Effective Date Expirati on Date Source BCBS 2 [id number] 2022 00:00:00 [place] [id number] 2010 00:00:00 [place] OUT [place] [id number] 00:00:00 [facility] [place] 6 [id number] [facility] Problems Condition Name Condition Details Condition Category Status Onset Date Resolution Date Last Treatment Date Treating Clinician Comments Source Hypothyroi dism Hypothyroi dism Disease Active 09-09 00:00: 00 Allie Seradhaold - Externa l BMI 37.0-37.9, adult BMI 37.0-37.9, adult Disease Active 09-09 00:00: 00 Allie Seybold - Externa l Mood disorder Mood disorder Disease Active 09-09 00:00: 00 Allie Seybold - Externa l ARMANDO (generaliz ed anxiety disorder) ARMANDO (generaliz ed anxiety disorder) Disease Active 09-09 00:00: 00 Allie Seybold - Externa l PID (pelvic inflammato ry disease) PID (pelvic inflammato ry disease) Disease Active 2014-06 00:00: 00 [facility] [id number] 00 Daytime somnolence Problem [facility] [id number] Chronic fatigue Problem [facility] [id number] History of thyroidect osmar Problem [facility] [id number] Mixed hyperlipid emia Problem [facility] [id number] Insomnia, unspecifie d type Problem [facility] [id number] Current moderate episode of major depressive disorder without prior episode Problem [facility] [id number] Morbid (severe) obesity due to excess calories Problem [facility] [id number] Tobacco use disorder Problem [facility] [id number] Postoperat dave hypothyroi dism Problem [facility] [id number] Migraine without aura and without status migrainosu s, not intractabl e Problem [facility] 54187414 Vitamin D deficiency disease Problem [facility] [id number] Lower urinary tract symptoms (LUTS) Problem [facility] [id number] Flank pain Problem Com [facility] Unable to concentrat e Unable to concentrat e Problem [facility] Allergies, Adverse Reactions, Alerts Allergy Name Allergy Type Status Severity Reaction(s) Onset Date Inactive Date Treating Clinician Comments Source NO KNOWN ALLERGIE S Drug Class Active [facility] Social History Social Habit Start Date Stop Date Quantity Comments Source Exposure to SARS-CoV-2 (event) Not sure [facility] Sexual orientation U [facility] Gender identity Fouzia Garcia - External History of tobacco use Cigarette Smoker Allie patel - External ASSERTION Not Allie Garcia - External Alcoholic beverage intake 2024-02-22 00:00:00 2024-02-22 00:00:00 .14 /d Allie Garcia - External Cigarettes smoked current (pack per day) - Reported 2024-02-22 00:00:00 2024-02-22 00:00:00 Allie Garcia - External Cigarette pack-years 2024-02-22 00:00:00 2024-02-22 00:00:00 Allie Garcia - External Tobacco use and exposure 2024-02-22 00:00:00 2024-02-22 00:00:00 Smokeless tobacco non-user Allie Jose - External Alcohol intake 2023-08-25 00:00:00 2023-08-25 00:00:00 Current drinker of alcohol (finding) Allie Jose - External Alcohol Comment 2022-09-08 00:00:00 2022-09-08 00:00:00 socially only Allie Pantojazane - External Sex 2022-08-26 12:55:20 2022-08-26 12:55:20 Female (finding) Allie Jose - External History of Social function 2021-05-13 00:00:00 2021-05-13 00:00:00 [facility] Tobacco Comment 2019-07-25 00:00:00 2019-07-25 00:00:00 15 ciggs a day [facility] Sex assigned at 1980 00:00:00 1980 00:00:00 Jameel Allie Jose - External Smoking Status Start Date Stop Date Source Ex-smoker 2024-02-22 00:00:00 2024-02-22 00:00:00 Kira vieira Sezane - External Current Smoker 2021-10-24 00:00:00 [facility] Medications Ordered Medication Name Filled Medication Name Start Date Stop Date Current Medication? Ordering Clinician Indication Dosage Frequency Signature (SIG) Comments Components Source methylPREDN ISolone 4 MG oral Tablet Therapy Pack 2023-06 00:00: 00 Yes [id number] Take 1 mindy by mouth See Admin Instructio ns Use as directed. Allie bales Lidocaine HCl (Lidocaine Viscous HCl) 2 % mouth/throa t Solution 2023-06 00:00: 00 Yes [id number] 5 mL swished in the mouth and spit out or swallow every 3 hours (maximum: 4.5 mg/kg [or 300 mg per dose]; 8 doses per 24-hour period). Allie bales Amoxicillin 875 MG oral Tablet 2023-06 00:00: 00 04-02 04:59 :00 Yes [id number] 875mg Q.5D Take 1 tablet (875 mg total) by mouth 2 times daily for 7 days. Allie bales Diethylprop ion HCl CR 75 MG oral TABLET SR 24 HR 03-03 00:00: 00 Yes [id number] 1{tbl} QD Take 1 tablet by mouth daily. Allie bales Cyanocobala min (VIT B12) injection 1,000 mcg 02-21 16:52: 27 No [id number] 1000ug 1,000 mcg, intramuscu lar, ONCE, On Wed02/22/24 at 1630, For 1 dose Allie bales Propranolol HCl 10 MG oral Tablet 02-21 15:52: 32 Yes [id number] 10mg Take 1 tablet (10 mg total) by mouth as needed. Allie bales Tirzepatide (Mounjaro) 12.5 MG/0.5ML subcutaneou s Solution Pen-injecto r 02-21 00:00: 00 Yes [id number] 12.5mg Q1W Inject 0.5 mL (12.5 mg total) into the skin once a week. Allie bales Diethylprop ion HCl CR 75 MG oral TABLET SR 24 HR 02-21 00:00: 00 Yes [id number] 1{tbl} QD Take 1 tablet by mouth daily. Allie bales Phentermine HCl 15 MG oral Capsule -04 00:00: 00 02-21 00:00 :00 No [id number] 15mg take 1 capsule by mouth every morning Allie bales Mounjaro 10 MG/0.5ML subcutaneou s Solution Pen-injecto r -28 00:00: 00 02-21 00:00 :00 No [id number] Inject 1 injection into the skin once a week for 4 weeks Allie bales Valacyclovi r HCl 1 g oral Tablet 31 00:00: 00 Yes [id number] 2000mg Q.5D Take 2 tablets (2,000 mg total) by mouth 2 times daily. Allie bales Phentermine HCl 15 MG oral Capsule 24 00:00: 00 Yes [id number] 15mg Take 1 capsule (15 mg total) by mouth every morning. Allie bales Oxybutynin Chloride (Ditropan XL) 5 MG oral TABLET SR 24 HR 10-28 00:00: 00 Yes [id number] 5mg QD Take 1 tablet (5 mg total) by mouth daily. Allie bales Mounjaro 10 MG/0.5ML subcutaneou s Solution Pen-injecto r 10-24 00:00: 00 Yes [id number] Inject 1 injection into the skin once a week for 4 weeks Allie bales Levothyroxi ne Sodium 150 MCG oral Tablet 10-24 00:00: 00 Yes [id number] 150ug QD Take 1 tablet (150 mcg total) by mouth daily. Allie bales Cranberry (Ellura) 200 MG oral Capsule 10-21 00:00: 00 Yes Take once daily. Allie bales Phentermine HCl 15 MG oral Capsule 10-04 00:00: 00 10-28 00:00 :00 No [id number] 15mg TAKE 1 CAPSULE BY MOUTH EVERY MORNING Allie bales Nystatin [id number] UNIT/GM apply externally Cream 09-27 00:00: 00 10-28 00:00 :00 No [id number] Insert 1 suppositor y (100,000 units) into the vagina nightly for 14 nights. Allie bales Amoxicillin -Pot Clavulanate 875-125 MG oral Tablet 09-22 00:00: 00 10-28 00:00 :00 No [id number] 1{tbl} Take 1 tablet by mouth 2 times daily. Allie bales levoFLOXaci n 750 MG oral Tablet 09-20 00:00: 00 10-28 00:00 :00 No [id number] 750mg Take 1 tablet (750 mg total) by mouth daily. Allie bales Fluconazole 150 MG oral Tablet 09-20 00:00: 00 10-28 00:00 :00 No [id number] 150mg Take 1 tablet (150 mg total) by mouth once a week. Allie bales Nitrofurant oin Monohyd Macro (Macrobid) 100 MG oral Capsule 09-13 00:00: 00 09-20 00:00 :00 No [id number] 100mg Take 1 capsule (100 mg total) by mouth 2 times daily. Allie bales Cephalexin 500 MG oral Capsule 08-24 16:06: 56 08-24 00:00 :00 No TAKE 1 CAPSULE BY MOUTH IN THE MORNING AND AT NOON AND IN THE EVENING Allie bales Propranolol HCl 10 MG oral Tablet 08-24 15:55: 28 Yes [id number] 10mg Take 1 tablet (10 mg total) by mouth as needed. Allie bales Cephalexin 500 MG oral Capsule 08-24 00:00: 00 Yes [id number] TAKE 1 CAPSULE BY MOUTH IN THE MORNING AND AT NOON AND IN THE EVENING. Allie bales Fluconazole 150 MG oral Tablet 08-24 00:00: 00 Yes [id number] Take 1 tab today and then 1 tab in 5 days. Allie bales Phentermine HCl 15 MG oral Capsule 08-24 00:00: 00 Yes [id number] 15mg Take 1 capsule (15 mg total) by mouth every morning. Allie bales cephALEXin (KEFLEX) capsule 500 mg 08-14 04:00: 00 08-14 04:00 :00 No 500mg 500 mg, Oral, ONCE, 1 dose, On 08/14/23 at 2200, YU
Re ason for Anti-Infec tive: Documented Infection< br>Documen sadi Infection Site: Urine
D uration of Therapy: Once (ED) [facility] cephALEXin 500 mg capsule 08-13 00:00: 00 Yes [id number] 500mg Take 1 capsule by mouth in the morning and 1 capsule at noon and 1 capsule in the evening. [facility] phenazopyri dine 200 mg tablet 08-13 00:00: 00 Yes [id number] 200mg Take 1 tablet by mouth in the morning and 1 tablet at noon and 1 tablet in the evening. [facility] Phenazopyri dine HCl 200 MG oral Tablet 08-13 00:00: 00 10-28 00:00 :00 No 200mg Take 1 tablet (200 mg total) by mouth 3 times daily. Allie bales Valacyclovi r HCl 1 g oral Tablet 08-10 00:00: 00 Yes Allie bales Mounjaro 7.5 MG/0.5ML subcutaneou s Solution Pen-injecto r 08-10 00:00: 00 Yes 7.5mg Inject 0.5 mL (7.5 mg total) into the skin once a week. Allie bales Cyclobenzap rine HCl 10 MG oral Tablet 08-08 00:00: 00 10-28 00:00 :00 No 10mg Q.[id number] 3D Take 1 tablet (10 mg total) by mouth 3 times daily as needed for muscle spasms. Allie bales Ibuprofen (MOTRIN) 600 MG oral Tablet 08-08 00:00: 00 10-28 00:00 :00 No 600mg Q.25D Take [...] bales Propranolol HCl 10 MG oral Tablet 228 11:25: 06 Yes [id number] 10mg Take 1 tablet (10 mg total) by mouth as needed. Allie bales Fluconazole 150 MG oral Tablet 08-04 00:00: 00 05:59 :00 No [id number] 150mg Take 1 tablet (150 mg total) by mouth once for 1 dose. Allie bales Fluconazole 150 MG oral Tablet 08-03 00:00: 00 08-24 00:00 :00 No Allie bales Amitriptyli ne HCl 100 MG oral Tablet 07-21 16:59: 24 07-21 00:00 :00 No [id number] 100mg Take 1 tablet (100 mg total) by mouth nightly. Allie bales Escitalopra m Oxalate 20 MG oral Tablet 07-21 16:59: 24 07-21 00:00 :00 No [id number] 20mg Take 1 tablet (20 mg total) by mouth 2 times daily. Allie bales Lamotrigine (LaMICtal) 100 MG oral Tablet 07-21 16:59: 24 07-21 00:00 :00 No [id number] 100mg Take 1 tablet (100 mg total) by mouth 2 times daily. Allie bales Propranolol HCl 10 MG oral Tablet 07-21 16:19: 54 Yes [id number] 10mg Take 1 tablet (10 mg total) by mouth as needed. Allie bales Tirzepatide (Mounjaro) 10 MG/0.5ML subcutaneou s Solution Pen-injecto r 07-21 00:00: 00 Yes [id number] 10mg Inject 0.5 mL (10 mg total) into the skin once a week. Allie bales Amitriptyli ne HCl 100 MG oral Tablet 07-21 00:00: 00 Yes [id number] 100mg Take 1 tablet (100 mg total) by mouth nightly. Allie bales Amitriptyli ne HCl 100 MG oral Tablet 07-21 00:00: 00 Yes [id number] 100mg QD Take 1 tablet (100 mg total) by mouth nightly. Allie bales Escitalopra m Oxalate 20 MG oral Tablet 07-21 00:00: 00 Yes [id number] 20mg Q.5D Take 1 tablet (20 mg total) by mouth 2 times daily. Allie bales Lamotrigine (LaMICtal) 100 MG oral Tablet 07-21 00:00: 00 Yes [id number] 100mg Q.5D Take 1 tablet (100 mg total) by mouth 2 times daily. Allie bales Ondansetron (ZOFRAN) 4 MG oral TABLET DISPERSIBLE 07-21 00:00: 00 Yes [id number] 4mg Q.[id number] 3D Take 1 tablet (4 mg total) by mouth every 8 hours as needed for nausea. Allie bales Semaglutide -Weight Management (Wegovy) 1.7 MG/0.75ML subcutaneou s Solution Auto-inject or 07-21 00:00: 00 07-21 00:00 :00 No [id number] 1.7mg Inject 1.7 mg into the skin once a week. Allie bales linaCLOtide (Linzess) 145 MCG oral Capsule 07-19 00:00: 00 Yes [id number] 145ug QD Take 1 capsule (145 mcg total) by mouth daily. Allie bales Escitalopra m Oxalate 20 MG oral Tablet 2022-06 14:36: 17 Yes [id number] 20mg Take 1 tablet (20 mg total) by mouth 2 times daily. Allie bales Lamotrigine (LaMICtal) 100 MG oral Tablet 2022-06 14:36: 17 Yes [id number] 100mg Take 1 tablet (100 mg total) by mouth 2 times daily. Allie bales Propranolol HCl 10 MG oral Tablet 2022-06 14:36: 17 Yes [id number] 10mg Take 1 tablet (10 mg total) by mouth as needed. Allie bales methylPREDN ISolone 4 MG oral Tablet Therapy Pack 2022-06 00:00: 00 Yes [id number] 1{mindy} Take 1 mindy by mouth See Admin Instructio ns Use as directed. Allie bales Ibuprofen (MOTRIN) 800 MG oral Tablet 2022-06 00:00: 00 02-21 00:00 :00 No [id number] 800mg Q.25D Take 1 tablet (800 mg total) by mouth every 6 hours as needed for pain. Allie bales Azithromyci n 250 MG oral Tablet 2022-06 00:00: 00 03-22 04:59 :00 No [id number] Take 2 tablets by mouth on day 1 then 1 tablet by mouth daily for 4 days thereafter .. Allie bales Escitalopra m Oxalate 20 MG oral Tablet 02-24 15:30: 07 Yes [id number] 20mg Take 1 tablet (20 mg total) by mouth 2 times daily. Allie bales Lamotrigine (LaMICtal) 100 MG oral Tablet 02-24 15:30: 07 Yes [id number] 100mg Take 1 tablet (100 mg total) by mouth 2 times daily. Allie bales Propranolol HCl 10 MG oral Tablet 02-24 15:30: 07 Yes [id number] 10mg Take 1 tablet (10 mg total) by mouth as needed. Allie bales Phentermine HCl 15 MG oral Capsule 02-24 00:00: 00 08-24 00:00 :00 No [id number] 15mg Take 1 capsule (15 mg total) by mouth every morning. Allie bales Semaglutide -Weight Management (Wegovy) 1 MG/0.5ML subcutaneou s Solution Auto-inject or 02-24 00:00: 00 07-21 00:00 :00 No [id number] 1mg Inject 1 mg into the skin once a week. Allie bales Linzess 145 MCG oral Capsule 01-25 00:00: 00 Yes [id number] 145ug TAKE 1 CAPSULE(14 5 MCG) BY MOUTH DAILY Allie bales Escitalopra m Oxalate 20 MG oral Tablet 01-08 14:53: 56 Yes [id number] 20mg Take 1 tablet (20 mg total) by mouth 2 times daily Allie bales Lamotrigine (LaMICtal) 100 MG oral Tablet 01-08 14:53: 56 Yes [id number] 100mg Take 1 tablet (100 mg total) by mouth 2 times daily Allie bales Propranolol HCl 10 MG oral Tablet 01-08 14:53: 56 Yes [id number] 10mg Take 1 tablet (10 mg total) by mouth as needed Allie bales Phenazopyri dine HCl 200 MG oral Tablet 01-08 00:00: 00 07-21 00:00 :00 No [id number] 200mg Q.[id number] 3D Take 1 tablet (200 mg total) by mouth 3 times daily as needed for pain Allie bales Ciprofloxac in HCl (Cipro) 500 MG oral Tablet 01-08 00:00: 00 01-16 04:59 :00 No [id number] 500mg Take 1 tablet (500 mg total) by mouth 2 times daily for 7 days Allie bales Fluconazole 150 MG oral Tablet 01-08 00:00: 00 01-09 04:59 :00 No [id number] 150mg Take 1 tablet (150 mg total) by mouth once for 1 dose Allie bales Escitalopra m Oxalate 20 MG oral Tablet 11-24 14:58: 08 Yes [id number] 20mg Take 1 tablet (20 mg total) by mouth 2 times daily Allie bales Lamotrigine (LaMICtal) 100 MG oral Tablet 11-24 14:58: 08 Yes [id number] 100mg Take 1 tablet (100 mg total) by mouth 2 times daily Allie bales Propranolol HCl 10 MG oral Tablet 11-24 14:58: 08 Yes [id number] 10mg Take 1 tablet (10 mg total) by mouth as needed. Allie bales linaCLOtide (Linzess) 145 MCG oral Capsule 11-24 00:00: 00 Yes [id number] 145ug Take 1 capsule (145 mcg total) by mouth daily Allie bales Albuterol HFA 108 (90 Base) MCG/ACT IN AERS 11-24 00:00: 00 10-28 00:00 :00 No [id number] 2{puff} Q.25D Inhale 2 puffs into the lungs every 6 hours as needed for wheezing Allie bales Pseudoeph-B romphen-DM 30-2-10 MG/5ML oral Syrup 11-24 00:00: 00 07-21 00:00 :00 No [id number] 10mL Q.25D Take 10 mL by mouth 4 times daily as needed Allie bales Semaglutide -Weight Management (Wegovy) 1 MG/0.5ML subcutaneou s Solution Auto-inject or 11-24 00:00: 00 02-24 00:00 :00 No [id number] 1mg Inject 1 mg into the skin once a week Allie bales Semaglutide -Weight Management (Wegovy) 1 MG/0.5ML subcutaneou s Solution Auto-inject or 11-11 00:00: 00 11-24 00:00 :00 No [id number] 1mg Inject 1 mg into the skin once a week Allie bales Mounjaro 7.5 MG/0.5ML subcutaneou s Solution Pen-injecto r 11-10 00:00: 00 07-21 00:00 :00 No Allie bales Levothyroxi ne Sodium 150 MCG oral Tablet 10-27 13:12: 11 10-27 00:00 :00 No [id number] 150ug Take 1 tablet (150 mcg total) by mouth daily Allie bales Escitalopra m Oxalate 20 MG oral Tablet 10-27 12:52: 30 Yes [id number] 20mg Take 1 tablet (20 mg total) by mouth 2 times daily Allie bales Lamotrigine (LaMICtal) 100 MG oral Tablet 10-27 12:52: 30 Yes [id number] 100mg Take 1 tablet (100 mg total) by mouth 2 times daily Allie bales Propranolol HCl 10 MG oral Tablet 10-27 12:52: 30 Yes [id number] 10mg Take 1 tablet (10 mg total) by mouth as needed Allie bales Levothyroxi ne Sodium 150 MCG oral Tablet 10-27 00:00: 00 Yes [id number] 150ug Take 1 tablet (150 mcg total) by mouth daily Allie bales Semaglutide -Weight Management (Wegovy) 1 MG/0.5ML subcutaneou s Solution Auto-inject or 10-27 00:00: 00 Yes [id number] 1mg Inject 1 mg into the skin once a week Allie bales Mounjaro 5 MG/0.5ML subcutaneou s Solution Pen-injecto r 10-07 00:00: 00 11-24 00:00 :00 No Allie bales Semaglutide -Weight Management (Wegovy) 0.5 MG/0.5ML subcutaneou s Solution Auto-inject or 10-07 00:00: 00 10-27 00:00 :00 No [id number] .5mg Inject 0.5 mg into the skin once a week Allie bales Propranolol HCl 10 MG oral Tablet 09-09 16:09: 03 Yes [id number] 10mg Take 1 tablet (10 mg total) by mouth as needed Allie bales Lamotrigine (LaMICtal) 100 MG oral Tablet 09-09 16:08: 26 Yes [id number] 100mg Take 1 tablet (100 mg total) by mouth 2 times daily Allie bales Levothyroxi ne Sodium 150 MCG oral Tablet 09-09 16:07: 03 Yes [id number] 150ug Take 1 tablet (150 mcg total) by mouth daily Allie bales Escitalopra m Oxalate 20 MG oral Tablet 09-09 16:07: 03 Yes [id number] 20mg Take 1 tablet (20 mg total) by mouth 2 times daily Allie bales Nitrofurant oin Monohyd Macro (Macrobid) 100 MG oral Capsule 09-09 00:00: 00 Yes [id number] 100mg Take 1 capsule (100 mg total) by mouth 2 times daily Allie bales Tirzepatide (Mounjaro) 2.5 MG/0.5ML subcutaneou s Solution Pen-injecto r 09-09 00:00: 00 Yes [id number] 2.5mg Inject 0.5 mL (2.5 mg total) into the skin once a week lAlie bales Ondansetron (ZOFRAN) 4 MG oral TABLET DISPERSIBLE 09-09 00:00: 00 07-21 00:00 :00 No [id number] 4mg Q.[id number] 3D Take 1 tablet (4 mg total) by mouth every 8 hours as needed for nausea Allie bales Vitamin B12 (Cyanocobal noble) Vitamin B12 (Cyanocobal noble) 02-25 00:00: 00 No 1000ug [facility] Vitamin B12 (Cyanocobal noble) Vitamin B12 (Cyanocobal noble) 02-25 00:00: 00 No 1000ug [facility] Vitamin B12 (Cyanocobal noble) Vitamin B12 (Cyanocobal noble) 02-25 00:00: 00 No 1000ug [facility] Cyanocobala min Cyanocobala min 02-25 00:00: 00 No 1000ug [facility] Vitamin B12 (Cyanocobal noble) Vitamin B12 (Cyanocobal noble) 02-25 00:00: 00 No 1000ug [facility] Azithromyci n 250 MG Azithromyci n 250 MG 2-09 00:00: 00 07-21 00:00 :00 No QD Azithromyc in 250 MG Vitamin B12 (Cyanocobal noble) Vitamin B12 (Cyanocobal noble) 1-25 00:00: 00 No 1000ug [facility] Vitamin B12 (Cyanocobal noble) Vitamin B12 (Cyanocobal noble) 1-25 00:00: 00 No 1000ug [facility] Vitamin B12 (Cyanocobal noble) Vitamin B12 (Cyanocobal noble) -25 00:00: 00 No 1000ug [facility] Vitamin B12 (Cyanocobal noble) Vitamin B12 (Cyanocobal noble) 07-01 00:00: 00 No 1000ug [facility] Vitamin B12 (Cyanocobal noble) Vitamin B12 (Cyanocobal noble) - 00:00: 00 No 1000ug [facility] Vitamin B12 (Cyanocobal noble) Vitamin B12 (Cyanocobal noble) -25 00:00: 00 No 1000ug [facility] Nitrofurant oin&Nit. Macrocryst 100 mg capsule 2020-06 2-07 00:00: 00 05-21 05:59 :00 No [id number] 100mg Take 1 capsule by mouth 2 (two) times daily for 7 days. [facility] Synthroid 175 MCG Synthroid 175 MCG 2020-06 0-25 00:00: 00 No QD Synthroid 175 MCG Vitamin B12 (Cyanocobal noble) Vitamin B12 (Cyanocobal noble) 2020-06 0-25 00:00: 00 No 1000ug [facility] Vitamin B12 (Cyanocobal noble) Vitamin B12 (Cyanocobal noble) 2020-06 0-25 00:00: 00 No 1000ug [facility] Vitamin B12 (Cyanocobal noble) Vitamin B12 (Cyanocobal noble) 2020-06 0-25 00:00: 00 No 1000ug [facility] Vitamin B12 (Cyanocobal noble) Vitamin B12 (Cyanocobal noble) 2020-06 0-25 00:00: 00 No 1000ug [facility] Vitamin B12 (Cyanocobal noble) Vitamin B12 (Cyanocobal noble) 2020-06 0-25 00:00: 00 No 1000ug [facility] Vitamin B12 (Cyanocobal noble) Vitamin B12 (Cyanocobal noble) 2020-06 0-25 00:00: 00 No 1000ug [facility] Amoxicillin -Pot Clavulanate 875-125 MG Amoxicillin -Pot Clavulanate 875-125 MG 9-29 00:00: 00 03-15 00:00 :00 No 1{table t} BID Amoxicilli n-Pot Clavulanat e 875-125 MG Levothyroxi ne Sodium 175 MCG Levothyroxi ne Sodium 175 MCG 2019-06 2-08 00:00: 00 No QD Levothyrox ine Sodium 175 MCG VALACYCLOVI R 500 mg tablet 4-14 00:00: 00 Yes [id number] TAKE 1 TABLET BY MOUTH TWICE DAILY FOR 6 DOSES [facility] valACYclovi r 500 mg tablet 218 00:00: 00 07-29 05:59 :00 No [id number] 500mg Take 1 tablet by mouth 2 (two) times daily for 6 doses. [facility] fluconazole (DIFLUCAN) 200 mg tablet 11 00:00: 00 Yes [id number] 200mg Take 1 tablet by mouth daily. [facility] escitalopra m oxalate (LEXAPRO) 20 mg tablet -10 20:11: 00 Yes 20mg Take 20 mg by mouth daily. [facility] escitalopra m oxalate (LEXAPRO) 20 mg tablet 2-10 14:11: 00 Yes 20mg Take 20 mg by mouth daily. [facility] meloxicam 7.5 mg tablet -06 00:00: 00 Yes TK 1 T PO ONCE D [facility] Polyethylen e Glycol 3350 17 gram powder 2-06 00:00: 00 Yes MIX 1 PACKET IN 8 OUNCES OR WATER OR JUICE AND DRINK ONCE D [facility] phentermine 37.5 mg tablet 07-03 00:00: 00 Yes [facility] proMETHazin e (PHENERGAN) 25 mg tablet 07-05 00:00: 07-17 00:00 :00 No 25mg Take 1 Tab by mouth every 6 (six) hours as needed for Nausea and Vomiting (N/V). [facility] acetaminoph en-codeine (TYLENOL-CO DEINE #3) 300-30 mg tablet 07-05 00:00: 00 07-17 00:00 :00 No 1{tbl} Take 1 Tab by mouth every 6 (six) hours as needed for Pain (scale 4-6). [facility] escitalopra m oxalate (LEXAPRO) 20 mg tablet 07-01 17:09: 06 Yes 20mg Take 20 mg by mouth daily. [facility] ibuprofen (MOTRIN) 800 mg tablet 06-21 00:00: 00 Yes 800mg Take 1 Tab by mouth every 6 (six) hours as needed for Pain (scale 4-6). [facility] levothyroxi ne (SYNTHROID) 125 mcg tablet 2014-06 00:00: 00 Yes 125ug Take 1 Tab by mouth every morning. [facility] Tirosint 175 MCG Tirosint 175 MCG No Tirosint 175 MCG Synthroid 150 MCG Synthroid 150 MCG No QD Synthroid 150 MCG Amitriptyli ne HCl 100 MG Amitriptyli ne HCl 100 MG No 1{table t_at_be dtime} QD Amitriptyl ine HCl 100 MG Synthroid 150 MCG Synthroid 150 MCG No QD Synthroid 150 MCG Synthroid 175 MCG Synthroid 175 MCG No Synthroid 175 MCG Synthroid 150 MCG Synthroid 150 MCG No QD Synthroid 150 MCG Synthroid 150 MCG Synthroid 150 MCG No QD Synthroid 150 MCG Synthroid 150 MCG Synthroid 150 MCG No QD Synthroid 150 MCG Amitriptyli ne HCl 100 MG Amitriptyli ne HCl 100 MG No QD Amitriptyl ine HCl 100 MG Amitriptyli ne HCl 100 MG Amitriptyli ne HCl 100 MG No 1{table t_at_be dtime} QD Amitriptyl ine HCl 100 MG Synthroid 150 MCG Synthroid 150 MCG No QD Synthroid 150 MCG Synthroid 175 MCG Synthroid 175 MCG No Synthroid 175 MCG Immunizations Ordered Immunization Name Filled Immunization Name Date Status Comments Source Flucelvax - single dose syringe Flucelvax - single dose syringe 2022-02-25 16:11:00 Completed [facility] Flucelvax - single dose syringe Flucelvax - single dose syringe 2022-02-25 16:11:00 Completed [facility] Flucelvax - single dose syringe Flucelvax - single dose syringe 2022-02-25 16:11:00 Completed [facility] Flucelvax - single dose syringe Flucelvax - single dose syringe 2022-02-25 16:11:00 Completed [facility] Influenza, Injectable, Mdck, Preservative Free, Quadrivalt 2022-02-25 00:00:00 Completed Allie Mckeon External Influenza, Injectable, Mdck, Preservative Free, Quadrivalt 2022-02-25 00:00:00 Completed Allie Mckeon External Influenza, Injectable, Mdck, Preservative Free, Quadrivalt 2022-02-25 00:00:00 Completed Allie Mckeon External Influenza, Injectable, Mdck, Preservative Free, Quadrivalt 2022-02-25 00:00:00 Completed Allie Mckeon External Vitamin B12 (Cyanocobalamin) Vitamin B12 (Cyanocobalamin) 2021-03-31 15:17:00 Completed [facility] Influenza, Seasonal, Injectable 2021-02-26 00:00:00 Completed Allie Garcia - External Influenza, Seasonal, Injectable 2021-02-26 00:00:00 Completed Allie Garcia - External Influenza, Seasonal, Injectable 2021-02-26 00:00:00 Completed Allie Garcia - External Influenza, Seasonal, Injectable 2021-02-26 00:00:00 Completed Allie Garcia - External Afluria Afluria 2021-02-05 14:57:00 Completed [facility] Afluria Afluria 2021-02-05 14:57:00 Completed [facility] 2021-02-05 14:57:00 Completed [facility] 2021-02-05 14:57:00 [facility] 2021-02-05 14:57:00 Completed [facility] Influenza, Seasonal, Injectable, Preservative Free 2021-02-05 00:00:00 Completed Allie Garcia - External Influenza, Seasonal, Injectable, Preservative Free 2021-02-05 00:00:00 Completed Allie Garcia - External Influenza, Seasonal, Injectable, Preservative Free 2021-02-05 00:00:00 Completed Allie Garcia - External Influenza, Seasonal, Injectable, Preservative Free 2021-02-05 00:00:00 Completed Allie Garcia - External SARS-COV-2 COVID-19 PFIZER VACCINE 2020-09-21 00:00:00 Completed [facility] SARS-COV-2 COVID-19 PFIZER VACCINE 2020-09-01 00:00:00 Completed [facility] Afluria single dose Afluria single dose 2020-03-04 15:36:00 Completed [facility] Afluria single dose Afluria single dose 2020-03-04 15:36:00 Completed [facility] Afluria single dose Afluria single dose 2020-03-04 15:36:00 Completed [facility] Afluria single dose Afluria single dose 2020-03-04 15:36:00 Completed [facility] Afluria single dose Afluria single dose 2020-03-04 15:36:00 Completed [facility] Pneumococcal Polysaccharide, PPSV23 (PNEUMOVAX) 2015-05-28 00:00:00 Completed [facility] Influenza Virus Vaccine Quad IM 3+ YRS 2015-05-28 00:00:00 Completed [facility] Pneumococcal Polysaccharide, PPSV23 (PNEUMOVAX) 2015-05-28 00:00:00 Completed [facility] Influenza Virus Vaccine Quad IM 3+ YRS 2015-05-28 00:00:00 Completed [facility] Pneumococcal Polysaccharide, PPSV23 (PNEUMOVAX) 2015-05-28 00:00:00 Completed [facility] Influenza Virus Vaccine Quad IM 3+ YRS 2015-05-28 00:00:00 Completed [facility] Pneumococcal Polysaccharide, PPSV23 (PNEUMOVAX) 2015-05-28 00:00:00 Completed [facility] Influenza Virus Vaccine Quad IM 3+ YRS 2015-05-28 00:00:00 Completed [facility] Pneumococcal Polysaccharide, PPSV23 (PNEUMOVAX) 2015-05-28 00:00:00 Completed [facility] Influenza Virus Vaccine Quad IM 3+ YRS 2015-05-28 00:00:00 Completed [facility] Pneumococcal Polysaccharide, PPSV23 (PNEUMOVAX) 2015-05-28 00:00:00 Completed [facility] Influenza Virus Vaccine Quad IM 3+ YRS 2015-05-28 00:00:00 Completed [facility] Pneumococcal Polysaccharide, PPSV23 (PNEUMOVAX) 2015-05-28 00:00:00 Completed [facility] Pneumococcal Polysaccharide, PPSV23 (PNEUMOVAX) 2015-05-28 00:00:00 Completed [facility] Influenza Virus Vaccine Quad IM 3+ YRS 2015-05-28 00:00:00 Completed [facility] Influenza Virus Vaccine Quad IM 3+ YRS 2015-05-28 00:00:00 Completed [facility] Pneumococcal Polysaccharide, PPSV23 (PNEUMOVAX) 2015-05-28 00:00:00 Completed [facility] Influenza Virus Vaccine Quad IM 3+ YRS 2015-05-28 00:00:00 Completed [facility] Pneumococcal Polysaccharide, PPSV23 (PNEUMOVAX) 2015-05-28 00:00:00 Completed [facility] Influenza Virus Vaccine Quad IM 3+ YRS 2015-05-28 00:00:00 Completed [facility] Pneumococcal Polysaccharide, PPSV23 (PNEUMOVAX) 2015-05-28 00:00:00 Completed [facility] Influenza Virus Vaccine Quad IM 3+ YRS 2015-05-28 00:00:00 Completed [facility] Influenza Virus Vaccine, No Preserv, age 6 months and up 2015-05-28 00:00:00 Completed Allie Seybold - External Pneumococcal Vaccine, Polysaccharide 2015-05-28 00:00:00 Completed Allie Mcdanielold - External Influenza Virus [...] Pneumococcal Vaccine, Polysaccharide 2015-05-28 00:00:00 Completed Allie Pantojaybold - External Afluria single dose Afluria single dose Unknown Completed [facility] Afluria Afluria Unknown Completed [facility] Flucelvax - single dose syringe Flucelvax - single dose syringe Unknown Completed [facility] Pneumococcal Polysaccharide, PPSV23 (PNEUMOVAX) Unknown Completed [facility] Influenza Virus Vaccine Quad IM 3+ YRS Unknown Completed [facility] SARS-COV-2 COVID-19 PFIZER VACCINE Unknown Completed [facility] Influenza, Injectable, Mdck, Preservative Free, Quadrivalent Unknown Completed Allie Garcia - External Influenza, Seasonal, Injectable, Preservative Free Unknown Completed Allie contreras - External Influenza, Seasonal, Injectable Unknown Completed Allie Garcia - External Influenza Virus Vaccine, No Preserv, age 6 months and up Unknown Completed Allie Rader eybold - External Pneumococcal Vaccine, Polysaccharide Unknown Completed Allie Mcdanielol d - External Influenza, Injectable, Mdck, Preservative Free, Quadrivalent Unknown Completed Allie Mcdanielold - External Influenza, Seasonal, Injectable, Preservative Free Unknown Completed Allie Whiting bold - External Influenza, Seasonal, Injectable Unknown Completed Allie Mcdanielold - External Influenza Virus Vaccine, No Preserv, age 6 months and up Unknown Completed Allie S eybold - External Pneumococcal Vaccine, Polysaccharide Unknown Completed Allie Mcdanielol d - External Influenza, Injectable, Mdck, Preservative [...] Seasonal, Injectable, Preservative Free Unknown Completed Allie Whiting bold - External Influenza, Seasonal, Injectable Unknown Completed Allie Seybold - External Influenza Virus Vaccine, No Preserv, age 6 months and up Unknown Completed Allie S eybold - External Pneumococcal Vaccine, Polysaccharide Unknown Completed Allie Seybol d - External Influenza, Injectable, Mdck, Preservative Free, Quadrivalent Unknown Completed Allie Seybold - External Influenza, Seasonal, Injectable, Preservative Free Unknown Completed Allie Whiting bold - External Influenza, Seasonal, Injectable Unknown Completed Allie Seybold - External Influenza Virus Vaccine, No Preserv, age 6 months and up Unknown Completed Allie S eybold - External Pneumococcal Vaccine, Polysaccharide Unknown Completed Allie Pantojaybol d - External Influenza, Injectable, Mdck, Preservative Free, Quadrivalent Unknown Completed Allie Pantojaybold - External AFLURIA TRIVALENT PF(0.5mL) Unknown Completed Allie Pantojaybold - External AFLURIA TRIVALENT MDV Unknown Completed Allie Pantojaybold - External Influenza Virus Vaccine, No Preserv, age 6 months and up Unknown Completed Allie S eybold - External Pneumococcal Vaccine, Polysaccharide Unknown Completed Allie Seybol d - External AFLURIA TRIVALENT MDV Unknown Completed Allie Seybold - External Influenza, Injectable, Mdck, Preservative Free, Quadrivalent Unknown Completed Allie Pantojaybold - External AFLURIA TRIVALENT PF(0.5mL) Unknown Completed Allie Seybold - External AFLURIA TRIVALENT MDV Unknown Completed Allie Pantojaybold - External Influenza Virus Vaccine, No Preserv, age 6 months and up Unknown Completed Allie S eybold - External Pneumococcal Vaccine, Polysaccharide Unknown Completed Allie Seybol d - External AFLURIA TRIVALENT MDV Unknown Completed Allie Seybold - External Vital Signs Vital Name Observation Time Observation Value Comments S jenn Systolic blood pressure 2024-02-22 20:46:00 110 mm[Hg] Allie Mcdanielo ld - External Diastolic blood pressure 2024-02-22 20:46:00 78 mm[Hg] Allie Seybo ld - External Heart rate 2024-02-22 20:46:00 82 /min Kelse y Seybold - External Body temperature 2024-02-22 20:46:00 36.61 Alexa Allie Seybold - External Respiratory rate 2024-02-22 20:46:00 15 /min Allie Seybold - External Body height 2024-02-22 20:46:00 175.3 cm Fouzia ey Seybold - External Body weight 2024-02-22 20:46:00 86.183 kg Fouzia ey Seybold - External BMI 2024-02-22 20:46:00 28.06 kg/m2 Fouzia ey Seybold - External Systolic blood pressure 2023-10-29 21:18:00 124 mm[Hg] Allie Seybo ld - External Diastolic blood pressure 2023-10-29 21:18:00 80 mm[Hg] Allie Seybo ld - External Body temperature 2023-10-29 21:18:00 36.22 Alexa Allie Seybold - External Respiratory rate 2023-10-29 21:18:00 14 /min Allie Seybold - External Body height 2023-10-29 21:18:00 175.3 [...] Seybo ld - External Systolic blood pressure 2023-08-15 04:06:00 123 mm[Hg] [facility] Diastolic blood pressure 2023-08-15 04:06:00 83 mm[Hg] [facility] Heart rate 2023-08-15 04:06:00 80 /min [facility] Respiratory rate 2023-08-15 04:06:00 16 /min [facility] Oxygen saturation in Arterial blood by Pulse oximetry 2023-08-15 04:06:00 100 /min [facility] Body temperature 2023-08-15 02:38:00 36.78 Alexa [facility] Body height 2023-08-15 02:38:00 175.3 cm [facility] Body weight 2023-08-15 02:38:00 87.045 kg [facility] BMI 2023-08-15 02:38:00 28.34 kg/m2 [facility] Systolic blood pressure 2023-07-21 22:14:00 116 mm[Hg] Allie Seybo ld - External Diastolic blood pressure 2023-07-21 22:14:00 74 mm[Hg] Allie Seybo ld - External Heart rate 2023-07-21 22:14:00 87 /min Kelse y Seybold - External Body temperature 2023-07-21 [...] Systolic blood pressure 2022-11-24 19:56:00 112 mm[Hg] Alile Seybo ld - External Diastolic blood pressure [...] Pulse oximetry 2022-10-27 17:47:00 95 /min Allie Seybo ld - External Systolic blood pressure 2022-09-09 20:59:00 126 mm[Hg] Allie Torres ld - External Diastolic blood pressure 2022-09-09 20:59:00 86 mm[Hg] Allie Torres ld - External Heart rate 2022-09-09 20:59:00 99 /min Dariusz Garcia - External Body temperature 2022-09-09 20:59:00 37.17 Alexa Allie Garcia - External Respiratory rate 2022-09-09 20:59:00 14 /min Allie Garcia - External Body height 2022-09-09 20:59:00 175.3 cm Fouzia staples Seybamanda - External Body weight 2022-09-09 20:59:00 114.306 kg Fouzia staples Seybold - External BMI 2022-09-09 20:59:00 37.21 kg/m2 Fouzia staples Seybold - External height 2022-07-28 16:40:00 69 [in_i] Commo n [facility] weight 2022-07-28 16:40:00 236 [lb_av] Comm on [facility] bmi 2022-07-28 16:40:00 34.85 kg/m2 Comm on [facility] blood pressure systolic 2022-07-28 16:40:00 121 mm[Hg] Common [facility] blood pressure diastolic 2022-07-28 16:40:00 75 mm[Hg] Common [facility] height 2022-03-23 16:20:00 69 [in_i] Commo n [facility] weight 2022-03-23 16:20:00 235 [lb_av] Comm on [facility] temperature 2022-03-23 16:20:00 98 [degF] Comm on [facility] bmi 2022-03-23 16:20:00 34.7 kg/m2 Commo n [facility] height 2022-02-25 15:50:00 69 [in_i] Commo n [facility] weight 2022-02-25 15:50:00 237.7 [lb_av] Co mmon [facility] temperature 2022-02-25 15:50:00 97.7 [degF] Com mon [facility] bmi 2022-02-25 15:50:00 35.1 kg/m2 Commo n [facility] oximetry 2022-02-25 15:50:00 97 % Commo n [facility] respiratory rate 2022-02-25 15:50:00 18 /min Common [facility] blood pressure systolic 2022-02-25 15:50:00 116 mm[Hg] Common [facility] blood pressure diastolic 2022-02-25 15:50:00 72 mm[Hg] [facility] height 2021-10-27 11:40:00 69 [in_i] Commo n [facility] weight 2021-10-27 11:40:00 235 [lb_av] Comm on [facility] temperature 2021-10-27 11:40:00 98 [degF] Comm on [facility] bmi 2021-10-27 11:40:00 34.70 kg/m2 Comm on [facility] blood pressure systolic 2021-10-27 11:40:00 125 mm[Hg] [facility] blood pressure diastolic 2021-10-27 11:40:00 75 mm[Hg] Common [facility] height 2021-07-16 15:00:00 69 [in_i] Commo n [facility] weight 2021-07-16 15:00:00 237 [lb_av] Comm on [facility] temperature 2021-07-16 15:00:00 97 [degF] Comm on [facility] bmi 2021-07-16 15:00:00 34.99 kg/m2 Comm on [facility] blood pressure systolic 2021-07-16 15:00:00 121 mm[Hg] [facility] blood pressure diastolic 2021-07-16 15:00:00 70 mm[Hg] [facility] Systolic blood pressure 2021-05-13 21:16:00 128 mm[Hg] [facility] Diastolic blood pressure 2021-05-13 21:16:00 85 mm[Hg] [facility] Heart rate 2021-05-13 21:16:00 79 /min [facility] Body temperature 2021-05-13 21:16:00 36.56 Alexa [facility] Respiratory rate 2021-05-13 21:16:00 16 /min [facility] Body height 2021-05-13 21:16:00 175.3 cm [facility] Body weight 2021-05-13 21:16:00 104.327 kg [facility] BMI 2021-05-13 21:16:00 33.97 kg/m2 [facility] Oxygen saturation in Arterial blood by Pulse oximetry 2021-05-13 21:16:00 97 /min [facility] height 2021-03-31 15:00:00 69 [in_i] Commo n [facility] weight 2021-03-31 15:00:00 235.6 [lb_av] Co mmon [facility] temperature 2021-03-31 15:00:00 97.7 [degF] Com mon [facility] bmi 2021-03-31 15:00:00 34.79 kg/m2 Comm on [facility] oximetry 2021-03-31 15:00:00 97 % Commo n [facility] respiratory rate 2021-03-31 15:00:00 17 /min [facility] blood pressure systolic 2021-03-31 15:00:00 117 mm[Hg] [facility] blood pressure diastolic 2021-03-31 15:00:00 76 mm[Hg] [facility] oximetry 2021-03-05 10:50:00 97 % Commo n [facility] respiratory rate 2021-03-05 10:50:00 18 /min Common [facility] blood pressure systolic 2021-03-05 10:50:00 114 mm[Hg] [facility] blood pressure diastolic 2021-03-05 10:50:00 83 mm[Hg] [facility] height 2021-03-05 10:50:00 69 [in_i] Commo n [facility] weight 2021-03-05 10:50:00 230.1 [lb_av] Co mmon [facility] temperature 2021-03-05 10:50:00 97.3 [degF] Com mon [facility] bmi 2021-03-05 10:50:00 33.98 kg/m2 Comm on [facility] Systolic blood pressure 2019-07-25 21:36:00 116 mm[Hg] [facility] Diastolic blood pressure 2019-07-25 21:36:00 81 mm[Hg] [facility] Heart rate 2019-07-25 21:36:00 110 /min [facility] Body temperature 2019-07-25 21:36:00 36.78 Alexa [facility] Respiratory rate 2019-07-25 21:36:00 18 /min [facility] Body height 2019-07-25 21:36:00 175.3 cm [facility] Body weight 2019-07-25 21:36:00 118.842 kg [facility] BMI 2019-07-25 21:36:00 38.69 kg/m2 [facility] Systolic blood pressure 2019-07-17 20:07:00 131 mm[Hg] [facility] Diastolic blood pressure 2019-07-17 20:07:00 91 mm[Hg] [facility] Heart rate 2019-07-17 20:07:00 93 /[facility] Body temperature 2019-07-17 20:07:00 36.72 Alexa [facility] Respiratory rate 2019-07-17 20:07:00 20 /min [facility] Body height 2019-07-17 20:07:00 175.3 cm [facility] Body weight 2019-07-17 20:07:00 119.296 kg [facility] BMI 2019-07-17 20:07:00 38.84 kg/m2 [facility] Procedures Procedure Date / Time Performed Performing Clinician Source XR ANKLE 3+ VW LEFT 2023-08-15 03:16:44 Briana Ontiveros [facility] URINE DRUG (IMMUNOASSAY) - COMPREHENSIVE DRUG SCREEN 2023-08-15 03:07:00 Dari Ontiveros [facility] URINALYSIS 2023-08-15 03:07:00 Dari Ontiveros [facility] NOTICE OF PRIVACY PRACTICES 2023-08-15 02:35:06 Doctor Unassigned, [place] [facility] CONSENT/REFUSAL FOR DIAGNOSIS AND TREATMENT 2023-08-15 02:32:37 Doctor Unassigned, [place] [facility] URINALYSIS NONAUTO W/O SCOPE 2022-09-09 21:16:40 María Solorio - External SCANNED LAB RESULTS 2019-07-25 06:01:00 Doctor Meena olson, [place] [facility] ASSIGNMENT OF BENEFITS 2019-07-17 19:47:28 Docto r Unassigned, [place] [facility] POCT URINALYSIS W/O SPECIFIC GRAVITY 2019-07-17 00:00:00 Olinda Flynn [facility] Encounters Start Date/Time End Date/Time Encounter Type Admission Type Attending Clinicians Care Facility Care Department Encounter ID Source 2022-09-25 08:37:01 Outpatient Tao, [facility] [id number] [facility] 2022-02-25 15:51:00 Outpatient Tao, [facility] [id number] [facility] 2022-02-24 13:33:01 Outpatient Tao, [facility] [id number] [facility] 2021-08-04 15:19:02 Outpatient Tao, [facility] [id number] [facility] 2021-07-15 15:22:01 [facility] [id number] [facility] 2021-07-02 14:04:00 Outpatient Tao, [facility]ov[facility] [id number] [facility] 2021-07-02 13:54:34 [facility] [id number] [facility] 2021-07-02 11:59:13 [facility] [id number] [facility] 2024-05-29 16:30:00 2024-05-29 16:30:00 Outpatient OSMIN MARÍA GOMEZ [id number] [facility] 2024-05-01 00:00:00 2024-05-01 00:00:00 Outpatient OSMIN MARÍA GOMEZ [id number] [facility] 2024-04-24 16:00:00 2024-04-24 16:00:00 Outpatient ALANIS REDDY [id number] [facility] 2024-04-21 16:00:00 2024-04-21 16:00:00 Outpatient MAICO JAIMERaul GOMEZ [id number] [facility] 2024-04-17 00:00:00 2024-04-17 00:00:00 Outpatient MARÍA SOLORIO [id number] [facility] 2024-04-12 00:00:00 2024-04-12 00:00:00 Outpatient MARÍA SOLORIO [id number] [facility] 2024-04-03 00:00:00 2024-04-03 00:00:00 Outpatient MARÍA SOLORIO [id number] [facility] 2024-03-25 15:00:00 2024-03-25 15:00:00 Outpatient YOGESH GHOSH [id number] [facility] 2024-03-25 12:00:00 2024-03-25 12:00:00 Outpatient ALLIE GOMEZ [id number] Allie Seybold 2024-02-22 16:00:00 2024-02-22 16:00:00 Outpatient HUNDL, MARÍA GOMEZ [id number] [facility] Sey[facility] 2024-02-22 16:00:00 2024-02-22 16:00:00 Outpatient HUNDL, MARÍA GOMEZ [id number] [facility] 2024-02-08 00:00:00 2024-02-08 00:00:00 Outpatient HUNDL, MARÍA GOMEZ [id number] [facility] 2024-01-06 00:00:00 2024-01-06 00:00:00 Outpatient HUNDL, MARÍA GOMEZ [id number] [facility] 2024-01-03 00:00:00 2024-01-03 00:00:00 Outpatient HUNDL, MARÍA GOMEZ [id number] [facility] 2024-01-01 00:00:00 2024-01-01 00:00:00 Outpatient HUNDL, MARÍA GOMEZ [id number] [facility] 2023-12-01 00:00:00 2023-12-01 00:00:00 Outpatient HUNDL, MARÍA GOMEZ [id number] [facility] 2023-11-17 00:00:00 2023-11-17 00:00:00 Outpatient GINUR ALLIE GOMEZ [id number] [facility] Sey[facility] 2023-11-08 16:30:00 2023-11-08 16:30:00 Outpatient HUNDL, MARÍA GOMEZ [id number] [facility] 2023-11-03 00:00:00 2023-11-03 00:00:00 Outpatient HUNDL, MARÍA GOMEZ [id number] [facility] 2023-10-29 16:30:00 2023-10-29 16:30:00 Outpatient HUNDL, MARÍA GOMEZ [id number] [facility] 2023-10-24 00:00:00 2023-10-24 00:00:00 Outpatient HUNDL, MARÍA GOMEZ [id number] [facility] Panto[facility] 2023-10-22 15:00:00 2023-10-22 15:00:00 Outpatient JAIME NINA ALLIE GOMEZ [id number] [facility] 2023-10-21 00:00:00 2023-10-21 00:00:00 Outpatient HUNDL, MARÍA GOMEZ [id number] [facility] 2023-10-12 00:00:00 2023-10-12 00:00:00 Outpatient HUNDL, MARÍA GOMEZ [id number] [facility] 2023-10-05 00:00:00 2023-10-05 00:00:00 Outpatient HUNDL, MARÍA GOMEZ [id number] [facility] 2023-10-01 00:00:00 2023-10-01 00:00:00 Outpatient HUNDL, MARÍA GOMEZ [id number] [facility] 2023-10-01 00:00:00 2023-10-01 00:00:00 Outpatient HUNDL, MARÍA GOMEZ [id number] [facility] 2023-09-28 00:00:00 2023-09-28 00:00:00 Outpatient HUNDL, MARÍA GOMEZ [id number] [facility] 00:00:00 2023-09-28 00:00:00 Outpatient HUNDL, MARÍA GOMEZ [id number] Allie Seybold 2023-09-27 16:30:00 2023-09-27 16:30:00 Outpatient HUNDL, AMRÍA GOMEZ [id number] Allie Seybold 2023-09-23 00:00:00 2023-09-23 00:00:00 Outpatient HUNDL, MARÍA GOMEZ [id number] Allie Seybold 2023-09-21 15:00:00 2023-09-21 15:00:00 Outpatient JEFF MORRISON [id number] Allie Seybamanda 2023-09-21 11:25:00 2023-09-21 11:25:00 Outpatient LAB90 ALLIE GOMEZ [id number] Allie [facility] 2023-09-21 10:30:00 2023-09-21 10:30:00 Outpatient OSMIN MARÍA ALLIE GOMEZ [id number] Allie [facility] 2023-09-20 00:00:00 2023-09-20 00:00:00 Outpatient OSMIN MARÍA ALLIE GOMEZ [id number] Allie [facility] 2023-09-14 00:00:00 2023-09-14 00:00:00 Outpatient [facility]SMIN [facility] [id number] [facility] 15:50:00 2023-09-13 15:50:00 Outpatient LAB90 [facility]IE [facility] [id number] [facility]-11 13:00:00 2023-09-11 13:00:00 Outpatient VISIMIN [facility] [id number] [facility]-10 00:00:00 2023-09-10 00:00:00 Outpatient OSMIN MARÍA GOMEZ [id number] [facility] 2023-09-02 00:00:00 2023-09-02 00:00:00 Outpatient GC_GCBZW_Ka diyala_S [facility] [id number] [facility] 2023-09-02 00:00:00 2023-09-02 00:00:00 Outpatient PREZAPrasanth ESDRAS ALLIE GOMEZ [id number] [facility] 2023-09-02 00:00:00 2023-09-02 00:00:00 Outpatient VANESSASruthi MARÍA GOMEZ [id number] [facility] 2023-08-29 00:00:00 2023-08-29 00:00:00 Outpatient OSMIN MARÍA GOMEZ [id number] [facility]-08-27 00:00:00 2023-08-27 00:00:00 Outpatient MARÍA SOLORIO [id number] [facility] 2023-08-26 14:30:00 2023-08-26 14:30:00 Outpatient ALLIE GOMEZ [id number] Allie [facility] 2023-08-26 13:00:00 2023-08-26 13:00:00 Outpatient ALLIE GOMEZ [id number] Allie [facility] 2023-08-25 16:20:00 2023-08-25 16:20:00 Outpatient LAB90 ALLIE GOMEZ [id number] Allie [facility] 2023-08-25 15:30:00 2023-08-25 15:30:00 Outpatient MARÍA SOLORIO [id number] [facility] 2023-08-14 20:41:00 2023-08-14 22:12:00 Emergency X DARI ONTIVEROS [facility] ERT [id number] [facility] 2023-08-14 20:41:00 2023-08-14 22:12:00 Emergency Marquis Ontiverosnell [facility] [id number] 350.1.13.10 [id number] [id number] [facility] 2023-08-09 19:45:00 2023-08-09 19:45:00 Outpatient WILMER MARS [id number] Allie [facility] 2023-08-04 11:30:00 2023-08-04 11:30:00 Outpatient ALYSA ZHANG [id number] [facility] 2023-08-04 00:00:00 2023-08-04 00:00:00 Outpatient GC_GCBZW_Ka diyala_S [facility] [id number] [facility] 2023-08-03 17:20:00 2023-08-03 17:20:00 Outpatient PROVIDERBASILIA [id number] Allie [facility] 2023-08-03 16:25:00 2023-08-03 16:25:00 Outpatient PROVIDERBASILIA [id number] Allie [facility] 2023-08-03 00:00:00 2023-08-03 00:00:00 Outpatient MARÍA SOLORIO [id number] [facility] 2023-08-03 00:00:00 2023-08-03 00:00:00 Outpatient MARÍA SOLORIO [facility]IE [facility] [id number] [facility]-07-22 16:30:00 2023-07-22 16:30:00 Outpatient MARÍA SOLORIO ALLIE GOMEZ [id number] Allie [facility] 2023-07-22 00:00:00 2023-07-22 00:00:00 Outpatient OSMIN MARÍA GOMEZ [id number] [facility] 2023-07-21 16:30:00 2023-07-21 16:30:00 Outpatient MARÍA SOLORIO ALLIE GOMEZ [id number] [facility] 2023-07-14 00:00:00 2023-07-14 00:00:00 Outpatient MARÍA SOLORIO ALLIE GOMEZ [id number] [facility] 2023-07-12 00:00:00 2023-07-12 00:00:00 Outpatient GC_GCBZW_Ka diyala_S PRIV PRIV [id number] [facility] 2023-07-08 00:00:00 2023-07-08 00:00:00 Outpatient GC_GCBZW_Ka diyala_S PRIV PRIV [id number] [facility] 2023-07-07 00:00:00 2023-07-07 00:00:00 Outpatient GC_GCBZW_Ka diyala_S PRIV PRIV [id number] [facility] 2023-07-02 00:00:00 2023-07-02 00:00:00 Outpatient GC_GCBZW_Ka diyala_S PRIV PRIV [id number] [facility] 2023-07-01 00:00:00 2023-07-01 00:00:00 Outpatient OSMIN MARÍA GOMEZ [id number] Allie [facility] 2023-06-23 10:55:00 2023-06-23 10:55:00 Outpatient PROVIDERBASILIA [id number] Allie zane 2023-06-23 06:15:00 2023-06-23 06:15:00 Outpatient PROVIDERBASILIA [id number] Allie [facility] 2023-06-16 00:00:00 2023-06-16 00:00:00 Outpatient GC_GCBZW_Ka diyala_S PRIV PRIV [id number] [facility] 2023-06-14 00:00:00 2023-06-14 00:00:00 Outpatient GC_GCBZW_Ka diyala_S PRIV PRIV [id number] [facility] 2023-04-26 00:00:00 2023-04-26 00:00:00 Outpatient GC_GCBZW_Ka diyala_S PRIV PRIV [id number] [facility] 2023-03-31 16:30:00 2023-03-31 16:30:00 Outpatient MARÍA SOLORIO [id number] [facility] 2023-03-16 14:30:00 2023-03-16 14:30:00 Outpatient MARÍA SOLORIO [id number] [facility] 2023-03-15 09:55:00 2023-03-15 09:55:00 Outpatient BASILIA KAM [id number] [facility] 2023-02-24 15:30:00 2023-02-24 15:30:00 Outpatient MARÍA SOLORIO [id number] [facility] 2023-01-25 00:00:00 2023-01-25 00:00:00 Outpatient MARÍA SOLORIO [id number] [facility] 2023-01-25 00:00:00 2023-01-25 00:00:00 Outpatient MARÍA SOLORIO [id number] Allie [facility] 2023-01-11 00:00:00 2023-01-11 00:00:00 Outpatient GC_GCBZW_Ka diyala_S PRIV PRIV [id number] [facility] 2023-01-08 15:50:00 2023-01-08 15:50:00 Outpatient ELDON GOMEZ [id number] [facility] 2023-01-08 15:00:00 2023-01-08 15:00:00 Outpatient HUNDL, MARÍA GOMEZ [id number] Allie ybamanda 2023-01-08 00:00:00 2023-01-08 00:00:00 Outpatient MD ALLIE HENRY [id number] Allie ybamanda 2022-11-24 15:30:00 2022-11-24 15:30:00 Outpatient HUNDL, MARÍA GOMEZ [id number] [facility] 2022-11-11 16:30:00 2022-11-11 16:30:00 Outpatient HUNDL, MARÍA GOMEZ [id number] [facility] 2022-11-10 00:00:00 2022-11-10 00:00:00 Outpatient HUNDL, MARÍA GOMEZ [id number] Allie ybamanda 2022-11-05 15:30:00 2022-11-05 15:30:00 Outpatient ALLIE GOMEZ [id number] [facility] 2022-11-03 15:30:00 2022-11-03 15:30:00 Outpatient HUNDL, MARÍA GOMEZ [id number] [facility] 2022-10-29 15:00:00 2022-10-29 15:00:00 Outpatient HUNDL, MARÍA GOMEZ [id number] Allie Seybold 2022-10-28 14:30:00 2022-10-28 14:30:00 Outpatient HUNDL, MARÍA GOMEZ [id number] [facility] 2022-10-27 13:00:00 2022-10-27 13:00:00 Outpatient HUNDL, MARÍA GOMEZ [id number] Allie Seybold 2022-10-23 00:00:00 2022-10-23 00:00:00 Outpatient HUNDL, MARÍA GOMEZ [id number] Allie Seybold 2022-10-23 00:00:00 2022-10-23 00:00:00 Outpatient PREZASESDRAS [id number] Allie Seybold 2022-10-23 00:00:00 2022-10-23 00:00:00 Outpatient PREZAS, ESDRAS ALLIE GOMEZ [id number] Allie Garcia 2022-10-23 00:00:00 2022-10-23 00:00:00 Outpatient [facility] ALLIE GOMEZ [id number] Allie Garcia 2022-10-22 15:40:00 2022-10-22 15:40:00 Outpatient ALLIE GOMEZ [id number] Allie Jose 2022-10-19 08:30:00 2022-10-19 08:30:00 Outpatient HUNDL, MARÍA GOMEZ [id number] Allie Jose 2022-10-07 09:30:00 2022-10-07 09:30:00 Outpatient HUNDSruthi, MARÍA GOMEZ [id number] Allie Garcia 2022-10-07 09:30:00 2022-10-07 09:30:00 Outpatient HUNDL, MARÍA GOMEZ [id number] Alliebisi Garcia 2022-10-06 00:00:00 2022-10-06 00:00:00 Outpatient HUNDL, MARÍA GOMEZ [id number] Allie Garcia 2022-10-06 00:00:00 2022-10-06 00:00:00 Outpatient HUNDSruthi, MARÍA GOMEZ [id number] Allie Garcia 2022-09-09 16:45:00 2022-09-09 16:45:00 Outpatient LAB90 ALLIE GOMEZ [id number] Allie Jose 2022-09-09 16:00:00 2022-09-09 16:00:00 Outpatient HUNDL, MARÍA ALLIE GOMEZ [id number] [facility] 2022-07-28 00:00:00 2022-07-28 00:00:00 OFFICE VISIT ESTAB PT LEVEL 3 STLMLC STLMLC [id number] [facility] 2022-06-25 00:00:00 2022-06-25 00:00:00 (TEL) STLMLC STLMLC [id number] [facility] 2022-03-23 00:00:00 2022-03-23 00:00:00 OFFICE VISIT EST PT LEVEL 3 STLMLC STLMLC [id number] [facility] 2022-02-25 00:00:00 2022-02-25 00:00:00 PREV VISIT EST AGE 40-64 STLMLC STLMLC [id number] [facility] 2021-10-27 00:00:00 2021-10-27 00:00:00 OFFICE VISIT ESTAB PT LEVEL 4 STLMLC STLMLC [id number] [facility] 2021-07-16 00:00:00 2021-07-16 00:00:00 OFFICE VISIT EST PT LEVEL 3 STLMLC STLMLC [id number] [facility] 2021-05-13 16:20:00 2021-05-13 15:37:27 Outpatient STACEY GOULD [facility] [id number] [facility] 2021-05-13 15:13:10 2021-05-13 15:37:27 Urgent Care Dotty [facility] 1.2.840.114 350.1.13.10 4.2.7.2.686 [id number] [facility] 2021-03-31 00:00:00 2021-03-31 00:00:00 OFFICE VISIT ESTAB PT LEVEL 4 STLMLC STLMLC [id number] [facility] 2021-03-24 00:00:00 2021-03-24 00:00:00 (TEL) STLMLC STLMLC [id number] [facility] 2021-03-19 00:00:00 2021-03-19 00:00:00 (TEL) STLMLC STLMLC [id number] [facility] 2021-03-05 00:00:00 2021-03-05 00:00:00 OFFICE VISIT EST PT LEVEL 3 STLMLC STLMLC [id number] [facility] 2021-01-27 00:00:00 2021-01-27 00:00:00 Outpatient STLMLC STLMLC [id number] [facility] 2020-10-02 00:00:00 2020-10-02 00:00:00 Outpatient STLMLC STLMLC [id number] [facility] 2020-09-22 16:30:00 2020-09-22 16:30:00 Outpatient [facility] [id number] [facility] 2020-09-21 16:30:00 2020-09-21 16:30:00 Outpatient [facility] [id number] [facility] 2020-09-01 16:05:00 2020-09-01 16:05:00 Outpatient [facility] [id number] [facility] 2020-08-22 00:00:00 2020-08-22 00:00:00 Patient Outreach Nicho Beth [facility] 1..840.114 350.1.13.10 4.2.7.2.686 [id number] [facility] 2020-07-14 19:30:50 2020-07-14 19:50:50 Laboratory Only Lab, Adc Fam Pob Mary Maldonado [facility] Office Building One 1..840.114 350.1.13.10 4.2.7.2.686 [id number] [facility] 2020-07-14 19:20:00 2020-07-14 19:20:00 Outpatient MARY SHANNON [facility] [id number] [facility] 2020-05-14 00:00:00 2020-05-14 00:00:00 Outpatient STLMLC STLMLC [id number] [facility] 2020-04-02 00:00:00 2020-04-02 00:00:00 Outpatient STLMLC STLMLC [id number] [facility] 2019-09-18 00:00:00 2019-09-18 00:00:00 Refill Olinda Flynn [facility] 1.2.840.114 350.1.13.10 4.2.7.2.686 [id number] [facility] 2019-07-28 00:00:00 2019-07-28 00:00:00 [facility] 1.2.840.114 350.1.13.10 4.2.7.2.686 [id number] [facility] 2019-07-25 14:58:47 2019-07-25 16:13:53 [facility] 1.2.840.114 350.1.13.10 4.2.7.2.686 [id number] [facility] 2019-07-25 00:00:00 2019-07-25 00:00:00 Orders Only Doctor Unassigned, [place] [facility] 1.2.840.114 350.1.13.10 4.2.7.2.686 [id number] [facility] 2019-07-18 00:00:00 2019-07-18 00:00:00 Case Management Adum, Olinda EDMONDS [facility] 1.2.840.114 350.1.13.10 4.2.7.2.686 [id number] [facility] 2019-07-18 00:00:00 2019-07-18 00:00:00 Tele[facility] 1.2.840.114 350.1.13.10 4.2.7.2.686 [id number] [facility] 2019-07-17 13:50:38 2019-07-17 14:55:46 Office Visit Adum, [facility] 1.2.840.114 350.1.13.10 4.2.7.2.686 [id number] [facility] 2019-07-17 00:00:00 2019-07-17 00:00:00 Orders Only Doctor Unassigned, [place] [facility] 1.2.840.114 350.1.13.10 4.2.7.2.686 [id number] [facility] Results Test Description Test Time Test Comments Results Resul t Comments Source XR ANKLE 3+ VW LEFT 2023-08-06 0 03:44:16 EXAM: XR ANKLE 3+ VW LEFT HISTORY: 42-year-old female patient with left knee pain started Wednesday. COMPARISON: None. FINDINGS: Radiographs of the left ankle demonstrate no acute fractures ordislocations. Joint spaces are preserved. Alignment is within normallimits. Posterior calcaneal enthesophyte is present. Os peroneum is noted.Mild soft tissue swelling is present. View [facility] Allie Garcia - ExternalLipid Panel With LDL/HDL [id number] 00:00:00* Test Item Value Reference Range Interpretation Comme nts Cholesterol, Total (test code = 2093-3) 192 mg/dL See_Comment [Automated message] The system which generated this result transmitted reference range: 100-199 mg/dL. The reference range was not used to interpret this result as normal/abnormal. Triglycerides (test code = 2571-8) 198 mg/dL See_Comment H [Automated Epocrates] The system which generated this result transmitted reference range: 0-149 mg/dL. The reference range was not used to interpret this result as normal/abnormal. HDL Cholesterol (test code = 2085-9) 40 mg/dL See_Comment [Automated [employer]] The system which generated this result transmitted reference range: >39 mg/dL. The reference range was not used to interpret this result as normal/abnormal. POCT URINALYSIS W/O SPECIFIC [id number] 20:17:00* Test Item Value Reference Range Interpretation Comme nts POCT PH U (test code = 3254) 6 mg/dl 5-8 POCT U LEUK EST (test code = 3263) neg Negative - Negative POCT U NIT (test code = 3262) neg Negative - Negati ve POCT U PROT (test code = 3259) neg Negative - Negat dave POCT U GLU (test code = 3256) neg Negative - Negati ve POCT U KETONE (test code = 3258) neg Negative - Neg ative POCT U BLD (test code = 3257) trace Negative - Negati ve Lab Interpretation (test cod e = 04510-9) [facility] SPECIFIC [id number] 20:17:00* Test Item Value Reference Range Interpretation Comme nts POCT PH U (test code = 3254) 6 mg/dl 5-8 POCT U LEUK EST (test code = 3263) neg Negative - Negative POCT U NIT (test code = 3262) neg Negative - Negati ve POCT U PROT (test code = 3259) neg Negative - Negat dave POCT U GLU (test code = 3256) neg Negative - Negati ve POCT U KETONE (test code = 3258) neg Negative - Neg ative POCT U BLD (test code = 3257) trace Negative - Negati ve Lab Interpretation (test cod e = [id number]) Abnormal [facility]
[2024-05-24 17:29] LABS: Specific Gravity 1.028 (1.005-1.030); Urine Bilirubin NEGATIVE (Negative); Urine Blood Negative (Negative); Urine Clarity Clear (Clear); Urine Color Yellow (Yellow); Urine Glucose NEGATIVE (Negative); Urine Ketones NEGATIVE (Negative); Urine Microscopic Reflex YN NO UMIC; Urine Nitrite NEGATIVE (Negative); Urine Protein NEGATIVE (Negative); Urine Urobilinogen 1+ (Normal)
[2024-05-24 17:30] LABS: Specific Gravity 1.028 (1.005-1.030)
[2024-05-24] MEDS ORDERED: ONDANSETRON 4 MG/2 ML VIAL ONE (17:45)
[2024-05-24] MEDS ORDERED: KETOROLAC 30 MG/ML INJ ONE (17:45)
[2024-05-24] MEDS ORDERED: NA CHLORIDE 0.9% 1,000 ML ONE (17:46)
[2024-05-24 17:57] LABS: Absolute Basophils 0.1 K/uL (0-0.5); Absolute Eosinophils 0.3 K/uL (0-0.5); Absolute Lymphocytes (CBC) 3.5 K/uL (0.7-4.9); Absolute Monocytes 0.5 K/uL (0.1-1.3); Absolute Neutrophil 3.2 K/uL (1.8-8.0); Basophils % 1.7 % (0-1.3); Eosinophils % 4.4 % (0-4.4); Hematocrit 41.4 % (36.0-45.0); Hemoglobin 13.7 g/dL (12.0-15.0); Lymphocytes % 45.1 % (15.3-44.8); MCH 28.4 pg (27.0-35.0); MCHC 33.1 g/dL (32.0-36.0); MCV 85.7 fL (80-100); MPV 9.4 fL (7.6-11.3); Monocytes % 6.7 % (3.3-12.3); Neutrophils % 42.1 % (41.7-73.7); Nucleated Red Blood Cells % 0.2 % (0-0); Platelets 245 thou/uL (152-406); RBC Red Blood Cell Count 4.83 M/uL (3.86-4.86); Red Cell Distribution Width 14.5 % (12.1-15.2)
[2024-05-24 18:13] LABS: Albumin 3.7 g/dL (3.4-5.0); Albumin/Globulin Ratio 1.1 (1.1-1.8); Anion Gap 7.8 mEq/L (5.0-15.0); Bilirubin Total 0.3 mg/dL (0.2-1.0); Globulin 3.4 g/dL (2.3-3.5); Potassium 3.8 mEq/L (3.5-5.1); Protein, Total 7.1 g/dL (6.4-8.2)
--- NOTE | 2024-05-24 19:51 | RAD REPORT ---
EXAMINATION: CT Abdomen Pelvis W Contrast CLINICAL INDICATION: Female, 43 years old. ABD PAIN TECHNIQUE: CT abdomen and pelvis was performed, after the administration of IV contrast, as per [employer] protocol. Axial, sagittal and coronal reconstructions were obtained. One or more of the following dose reduction techniques were used: Automated exposure control, adjustment of the mA and k V according to patient size, and iterative reconstruction. Unless otherwise specified, incidental findings do not require dedicated imaging follow-up. COMPARISON: No prior exam. FINDINGS: LOWER CHEST: The visualized lung bases are clear. LIVER: Normal in size and contour. No focal lesion. BILIARY SYSTEM: Status post cholecystectomy. SPLEEN: Normal size. No focal lesion. PANCREAS: No mass, ductal dilation, or brook-pancreatic fluid. ADRENALS: Left adrenal 3.6 x 2.8 cm mass, indeterminate. No right adrenal mass. KIDNEYS: Normal size and contour. No hydronephrosis. URINARY BLADDER: Unremarkable. GASTROINTESTINAL TRACT: Sequelae of bariatric surgery No evidence of free air, significant intra-abdo mae free fluid, bowel obstruction or abscess. APPENDIX: Normal appendix. LYMPH NODES: No lymphadenopathy. MUSCULOSKELETAL: No acute or suspicious osseous abnormality. ADDITIONAL FINDINGS: Status post hysterectomy. IMPRESSION: No acute or concerning abnormalities seen in the abdomen or pelvis. Incidentally noted left adrenal 3.6 cm mass, can be further evaluated by in phase/out of phase abdomi nal MRI.
--- NOTE | 2024-05-24 19:58 | EDPHYS ---
Physician Documentation [facility] Name: Amanda Ingram Age: 43 yrs Sex: Female : 1980 Arrival Date: 05/24/2024 Time: 17:01 Bed 6 Private MD: ED Physician Alexander uSn HPI: 05/24 18:29 This 43 yrs old Female presents to ER via Ambulatory with complaints of Abdominal Pain, kb Back Pain. 18:29 Pt is a 43 year old female who presents for bilateral flank and suprapubic pain. States kb she was diagnosed with a UTI 6 days ago and put on Bactrim. States the urinary symptoms have resolved but she is still having the pain. . Historical: - Allergies: 17:13 No Known Allergies; ap3 - Immunization history:: Client reports receiving the 2nd dose of the Covid vaccine. - Infectious Disease History:: Denies. - Social history:: Smoking status: Reported history of juuling and/or vaping. ROS: 18:29 Constitutional: As per HPI kb Exam: 18:32 Constitutional: This is a well developed, well nourished patient who is awake, alert, kb and in no acute distress. Head/Face: Normocephalic, atraumatic. ENT: Moist Mucous membranes Cardiovascular: Regular rate Respiratory: Respirations even and unlabored. No increased work of breathing. Talking in full sentences Skin: Warm, dry with normal turgor. Normal color. MS/ Extremity: Pulses equal, no cyanosis. Neurovascular intact. Full, normal range of motion. Neuro: Awake and alert, GCS 15, oriented to person, place, time, and situation. 18:32 Abdomen/GI: Inspection: abdomen appears normal, Bowel sounds: normal, Palpation: soft, in all quadrants, mild abdominal tenderness, in the suprapubic area, 18:32 Back: CVA tenderness, is absent, Vital Signs: 17:10 BP 118 / 79; Pulse 80; Resp 17; Temp 97.9(O); Pulse Ox 100% on R/A; Weight 79.38 kg; ap3 Height 5 ft. 9 in. ; Pain 8/10; 18:42 BP 121 / 79; Pulse 70; Pulse Ox 100% on R/A; MAP 92 mmHg; tm6 19:26 Pain 0/10; tm6 17:10 Body Mass Index 25.84 (79.38 kg, 175.26 cm) ap3 17:10 Pain Scale: Adult ap3 19:26 Pain Scale: Adult tm6 MDM: 17:03 Medical Screening Exam initiated kb 18:33 Differential diagnosis: non-specific abd pain, Pyelonephritis, Ureterolithiasis, kb urinary tract infection. Data reviewed: vital signs, nurses notes. 19:57 Counseling: I had a detailed discussion with the patient and/or guardian regarding the kb historical points, exam findings, and any diagnostic results supporting the discharge/admit diagnosis, lab results, radiology results, the need for outpatient follow up, a family practitioner, to return to the emergency department if symptoms worsen or persist or if there are any questions or concerns that arise at home. 05/24 17:07 Order name: CBC with Diff; Complete Time: 18:04 kb 05/24 17:07 Order name: CMP; Complete Time: 18:15 kb 05/24 17:07 Order name: Lipase; Complete Time: 18:15 kb 05/24 17:07 Order name: Test, Urine; Complete Time: 17:31 kb 05/24 17:07 Order name: Urinalysis w/ reflexes; Complete Time: 17:31 kb 18 18:15 Order name: CT Abd/Pelvis - IV Contrast Only; Complete Time: 19:54 kb 05/24 17:07 Order name: IV Saline Lock; Complete Time: 17:39 kb 05/24 17:07 Order name: Labs collected and sent; Complete Time: 17:39 kb Administered Medications: 17:51 Drug: NS 0.9% IV 1000 ml IV at 1 bolus Per protocol; to be given as a bolus over 60 tm6 minutes Route: IV; Rate: 1 bolus; Site: left antecubital; 17:52 Drug: TORadol - Ketorolac IVP 15 mg IVP once Route: IVP; Site: left antecubital; tm6 17:52 Drug: Ondansetron IVP 4 mg IVP once; over 2 minutes Route: IVP; Site: left antecubital; tm6 Disposition Summary: 05/24/24 19:57 Discharge Ordered Notes: Location: Home kb Condition: Stable kb Diagnosis - Low back pain kb - Lower abdominal pain, unspecified kb Followup: kb - With: Emergency Department - When: As needed - Reason: Worsening of condition Followup: kb - With: Private Physician - When: 2 - 3 days - Reason: Recheck today's complaints, Continuance of care, Re-evaluation by your physician Discharge Instructions: - Discharge Summary Sheet kb - Acute Back Pain, Adult kb - Abdominal Pain, Adult, [id number] kb Forms: - Medication Reconciliation Form kb - Antibiotic Education kb - Prescription Opioid Use kb - Patient Portal Instructions kb - Leadership Thank You Letter kb Prescriptions: - Diclofenac Sodium 75 mg Oral tablet, delayed release (enteric coated) - take 1 tablet ORAL route 2 times per day As needed; 30 tablet; Refills: 0, kb Product Selection Permitted - orphenadrine citrate 100 mg Oral Tablet Sustained Release - take 1 tablet ORAL route 2 times per day As needed; 20 tablet; Refills: 0, kb Product Selection Permitted Addendum: 05/28/2024 19:27 Co-signature as Attending Physician, Alexander Sun MD I reviewed the patient's care r n provided by the Advanced Practice Provider and agree with the diagnosis and treatment plan. Signatures: Dispatcher [employer] EDLucia Brennan, CODING DIRECTOR-C CODING DIRECTOR-Ckb Alexander Sun MD MD rn Prokisch, Amanda RN RN ap3 Calista March RN RN tm6 Corrections: (The following items were deleted from the chart) 05/24 17:08 17:08 CBC+H.LAB.BRZ ordered. EDDE EDDE 17:08 17:08 COMPREHENSIVE METABOLIC PANEL+C.LAB.BRZ ordered. EDDE EDDE 17:08 17:08 LIPASE+C.LAB.BRZ ordered. EDDE EDDE 17:08 17:08 Test, Urine+UC.LAB.BRZ ordered. EDDE EDDE 17:08 17:08 Urinalysis+U.LAB.BRZ ordered. EDDE EDDE
--- NOTE | 2024-05-24 19:58 | ER ---
Nurse's Notes [facility] Name: Amanda Ingram Age: 43 yrs Sex: Female : 1980 Arrival Date: 05/24/2024 Time: 17:01 Bed 6 Private MD: Diagnosis: Low back pain;Lower abdominal pain, unspecified Presentation: 05/24 17:10 Chief complaint: Patient states: she is having continued lower back pain and urinary ap3 symptoms since she was discharged 05/18/24. Coronavirus screen: At this time, the client does not indicate any symptoms associated with coronavirus-19. Ebola Screen: No symptoms or risks identified at this time. Initial Sepsis Screen: Does the patient meet any 2 criteria? No. Patient's initial sepsis screen is negative. Does the patient have a suspected source of infection? No. Patient's initial sepsis screen is negative. Risk Assessment: Do you want to hurt yourself or someone else? Patient reports no desire to harm self or others. Onset of symptoms is unknown. 17:10 Method Of Arrival: Ambulatory ap3 17:10 Acuity: JAQUAN 3 ap3 Triage Assessment: 17:14 General: Appears in no apparent distress. Behavior is calm, cooperative, appropriate ap3 for age. Pain: Complains of pain in low back area and abdomen Pain currently is 8 out of 10 on a pain scale. Neuro: Level of Consciousness is awake, alert, obeys commands, Oriented to person, place, time, situation, Appropriate for age. Cardiovascular: Patient's skin is warm and dry. Respiratory: Airway is patent Respiratory effort is even, unlabored, Respiratory pattern is regular, symmetrical. GI: Reports lower abdominal pain, upper abdominal pain. : Reports pain in right in left in lower back. Historical: - Allergies: 17:13 No Known Allergies; ap3 - Immunization history:: Client reports receiving the 2nd dose of the Covid vaccine. - Infectious Disease History:: Denies. - Social history:: Smoking status: Reported history of juuling and/or vaping. Screenin:14 [facility] ED Fall Risk Assessment (Adult) History of falling in the last 3 months, ap3 including since admission No falls in past 3 months (0 pts) Confusion or Disorientation No (0 pts) Intoxicated or Sedated No (0 pts) Impaired Gait No (0 pts) Mobility Assist Device Used No (0 pt) Altered Elimination No (0 pt) Score/Fall Risk Level 0 - 2 = Low Risk Oriented to surroundings, Maintained a safe environment, Educated pt \T\ family on fall prevention, incl call for assistance when getting out of bed, Assessed \T\ reinforced patient's understanding of fall precautions, Hourly rounding (assess needs \T\ fall precautionary measures) done, Used ambulatory aids as needed (educated on \T\ assisted with), Used gait belt as appropriate. Abuse screen: Denies threats or abuse. Nutritional screening: No deficits noted. Tuberculosis screening: No symptoms or risk factors identified. Assessment: 17:15 General: Appears in no apparent distress. Behavior is calm, cooperative. Pain: tm6 Complains of pain in suprapubic area and abdomen and back and low back area Pain currently is 8 out of 10 on a pain scale. Neuro: Level of Consciousness is awake, alert, obeys commands, Oriented to person, place, time, situation. Cardiovascular: Patient's skin is warm and dry. Respiratory: Airway is patent Respiratory effort is even, unlabored, Respiratory pattern is regular, symmetrical. GI: Abdomen is flat, non-distended, Bowel sounds Abd is soft X 4 quads Reports nausea. : Reports pain in bilateral flank(s). EENT: No signs and/or symptoms were reported regarding the EENT system. Derm: No signs and/or symptoms reported regarding the dermatologic system. Musculoskeletal: Reports pain in suprapubic area and abdomen and back and low back area. 18:42 Reassessment: Patient and/or family updated on plan of care and expected duration. Pain tm6 level reassessed. Patient is alert, oriented x 3, equal unlabored respirations, skin warm/dry/pink. Vital Signs: 17:10 BP 118 / 79; Pulse 80; Resp 17; Temp 97.9(O); Pulse Ox 100% on R/A; Weight 79.38 kg; ap3 Height 5 ft. 9 in. ; Pain 8/10; 18:42 BP 121 / 79; Pulse 70; Pulse Ox 100% on R/A; MAP 92 mmHg; tm6 19:26 Pain 0/10; tm6 17:10 Body Mass Index 25.84 (79.38 kg, 175.26 cm) ap3 17:10 Pain Scale: Adult ap3 19:26 Pain Scale: Adult tm6 ED Course: 17:03 Patient arrived in ED. mr 17:03 Jeremy LuciaZAIN [facility]amm[facility] kb 17:03 Alexander Sun MD is Attending Physician. kb 17:04 Calista March, MARIA T is Primary Nurse. tm6 17:13 Triage completed. ap3 17:15 Arm band placed on right wrist. ap3 17:15 Patient has correct armband on for positive identification. Bed in low position. Call tm6 light in reach. Side rails up X 1. Provided Education on: use of call vega. Client placed on continuous cardiac and pulse oximetry monitoring. NIBP monitoring applied. Pulse ox on. NIBP on. Door closed. Noise minimized. Warm blanket given. Pillow given. 17:19 Urine collected: clean catch specimen. ap3 17:19 Test, Urine Sent. ap3 17:19 Urinalysis w/ reflexes Sent. ap3 17:38 Initial lab(s) drawn, by sd, sent to lab. Inserted saline lock: 20 gauge in left zm antecubital area, using aseptic technique. Blood collected. Flushed with 10 mL NS. 17:39 CBC with Diff Sent. zm 17:39 CMP Sent. zm 17:39 Lipase Sent. zm 18:50 CT Abd/Pelvis - IV Contrast Only In Process Unspecified. EDMS 20:06 No provider procedures requiring assistance completed. IV discontinued, intact, vc1 bleeding controlled, No redness/swelling at site. Pressure dressing applied. Administered Medications: 17:51 Drug: NS 0.9% IV 1000 ml IV at 1 bolus Per protocol; to be given as a bolus over 60 tm6 minutes Route: IV; Rate: 1 bolus; Site: left antecubital; 17:52 Drug: TORadol - Ketorolac IVP 15 mg IVP once Route: IVP; Site: left antecubital; tm6 17:52 Drug: Ondansetron IVP 4 mg IVP once; over 2 minutes Route: IVP; Site: left antecubital; tm6 Medication: 17:15 VIS not applicable for this client. tm6 Outcome: 19:57 Discharge ordered by . kb 20:06 Discharged to home ambulatory, vc1 20:06 Condition: good 20:06 Discharge instructions given to patient, Instructed on discharge instructions, follow up and referral plans. medication usage, Demonstrated understanding of instructions, follow-up care, medications, Prescriptions given X 2, 20:06 Patient left the ED. vc1 Signatures: Dispatcher [employer] EDLucia Brennan, LOOK OUT TOWER FIRE WATCHER-C LOOK OUT TOWER FIRE WATCHER-Citlali Duarte, Reg Reg mr Amanda Rugigero, RN RN ap3 Kerri Sanchez RN RN vc1 Charisse Roberson Tawney, RN RN tm6
[2024-05-24 20:16] VITALS: TEMP 97.9; O2SAT 100
[2024-05-24 20:26] VITALS: BP 121/79
== END 2024-05-24 20:06 | disposition home or self-care (01) ==
LOC: ER 17:01
DX: M54.50 Low back pain, unspecified (principal); R10.30 Lower abdominal pain, unspecified; F17.290 Nicotine dependence, other tobacco product, uncomplicated
CPT/HCPCS: 85025; 36415; 81025; 81003; 83690; 80053; 74177; 96375; 96374; 99284; Q9967; J2405; J7030

== ENCOUNTER 2024-09-05 14:11 | Emergency (ER) | payer BC ==
--- OUTSIDE RECORDS SUMMARY | 2024-09-05 14:17 | XMS REPORT | Continuity of Care Document ---
Author Name Unknown Address [address] [facility] [address] [place] [address] Organization [facility] Address [address] [facility] [address] [place] [address] Care Team Providers Care Account Manager Relief Name Role Phone OSMIN MARÍA Primary Care Physician Unavailab Giovanny Jacobs Attending Clinician Unavailable GUILLERMINA AKHTAR Attending Clinician Unavailable MARÍA SOLORIO Attending Clinician Unavailable LAB90 Attending Clinician Unavailable ESDRAS FORTUNE Attending Clinician Unavailable CRYSTAL AMATO Attending Clinician Unavailable DANIEL LUCERO Attending Clinician Unavailable DAVID MCNEIL Attending Clinician Unav ALANIS Mercado Attending Clinician UnavailJAIME Chino Attending Clinician Unavailable YOGESH GHOSH Attending Clinician Unavailable YEN Attending Clinician Unavailable JEFF MORRISON Attending Clinician Unavailab SIMIN Hall Attending Clinician Unavailable [email or web address] Attending Clinician UnavailDARI Robins Attending Clinician Unavailable Dari Ontiveros MD Attending Clinician [phone] WILMER MARS Attending Clinician Unava ilable CHIAKWELU, ULOMA Attending Clinician Unavailable PROVIDER, BASILIA Attending Clinician Unavailable MD PETE Attending Clinician Unavailab Sherwood [facility] Attending Clinician Unavailable JON GREGORIO Attending Clinician Unavailable Jayson MACHINE FEEDERDotty Rivera Attending Clinician [phone] Jon Philippe Attending Clinician [phone] Kirit ONTIVEROS Nicho Levi Attending Clinician Lab, Adc Fam Pob I Attending Clinician UnavailMary Wong MD Attending Clinician [phone] MARY TAYLOR Attending Clinician Unavailgorge Flynn MD, Olinda Bales Attending Clinician [phone] Doctor Unassigned, [place] Attending Clinician U navailable [email or web address] Admitting Clinician UnavailDARI Robins Admitting Clinician Unavailable Payers Payer Name Policy Type Policy Number Effective Date Expirati on Date Source BCBS 2 [id number] 2022 00:00:[place] [id number] 2010 00:00:00 [place] OUT OF STATE [id number] 2013 00:00:00 [facility] 6 [id number] [facility] Problems Condition Name Condition Details Condition Category Status Onset Date Resolution Date Last Treatment Date Treating Clinician Comments Source Hypothyroi dism Hypothyroi dism Disease Active 09-09 00:00: 00 Allie Mcdanielold - Externa l BMI 37.0-37.9, adult BMI 37.0-37.9, adult Disease Active 09-09 00:00: 00 Allie Pantojaybold - Externa l Mood disorder Mood disorder Disease Active 09-09 00:00: 00 Allie Mcdanielold - Externa l ARMANDO (generaliz ed anxiety disorder) ARMANDO (generaliz ed anxiety disorder) Disease Active 09-09 00:00: 00 Allie Mcdanielold - Externa l PID (pelvic inflammato ry disease) PID (pelvic inflammato ry disease) Disease Active 2014-06 00:00: 00 [facility] [id number] 00 Daytime somnolence Problem [facility] [id number] Chronic fatigue Problem [facility] [id number] History of thyroidect osmar Problem [facility] [id number] Mixed hyperlipid emia Problem [facility] [id number] Insomnia, unspecifie d type Problem [facility] [id number] Current moderate episode of major depressive disorder without prior episode Problem [facility] [id number] Morbid (severe) obesity due to excess calories Problem [facility] [id number] Tobacco use disorder Problem [facility] [id number] Postoperat dave hypothyroi dism Problem [facility] [id number] Migraine without aura and without status migrainosu s, not intractabl e Problem [facility] [id number] Vitamin D deficiency disease Problem [facility] [id number] Lower urinary tract symptoms (LUTS) Problem [facility] [id number] Flank pain Problem [facility] Unable to concentrat e Unable to concentrat e Problem [facility] Allergies, Adverse Reactions, Alerts Allergy Name Allergy Type Status Severity Reaction(s) Onset Date Inactive Date Treating Clinician Comments Source NO KNOWN ALLERGIE S Drug Class Active [facility] acute hospital Social History Social Habit Start Date Stop Date Quantity Comments Source Exposure to SARS-CoV-2 (event) Not sure [facility] Sexual orientation U [facility] Gender identity Fouzia Garcia - External History of tobacco use Cigarette Smoker Allie patel - External ASSERTION Not Allie Garcia - External Alcoholic beverage intake 2024-08-31 00:00:00 2024-08-31 00:00:00 .14 /d Allie Garcia - External Cigarettes smoked current (pack per day) - Reported 2024-02-22 00:00:00 2024-02-22 00:00:00 Allie Garcia - External Cigarette pack-years 2024-02-22 00:00:00 2024-02-22 00:00:00 Allie Garcia - External Tobacco use and exposure 2024-02-22 00:00:00 2024-02-22 00:00:00 Smokeless tobacco non-user Allie Jose - External Alcohol intake 2023-08-25 00:00:00 2023-08-25 00:00:00 Current drinker of alcohol (finding) Allie Garcia - External Alcohol Comment 2022-09-08 00:00:00 2022-09-08 00:00:00 socially only Allie Jose - External Sex 2022-08-26 12:55:20 2022-08-26 12:55:20 Female (finding) Allie Garcia - External History of Social function 2021-05-13 00:00:00 2021-05-13 00:00:00 [facility] Tobacco Comment 2019-07-25 00:00:00 2019-07-25 00:00:00 15 ciggs a day [facility] Sex assigned at 1980 00:00:00 1980 00:00:00 Jameel Allie Seradhaamanda - External Smoking Status Start Date Stop Date Source Ex-smoker 2024-02-22 00:00:00 2024-02-22 00:00:00 Kira vieira Seradhaamanda - External Current Smoker 2021-10-24 00:00:00 [facility] Medications Ordered Medication Name Filled Medication Name Start Date Stop Date Current Medication? Ordering Clinician Indication Dosage Frequency Signature (SIG) Comments Components Source Ketorolac Tromethamin e (TORADOL) 60 mg/2 mL 08-31 16:57: 04 No [id number] 60mg 60 mg, intramuscu lar, ONCE, On Samia 08/31/24 at 1700, For 1 dose Allie bales Cyclobenzap rine HCl 5 MG oral Tablet 08-29 00:00: 00 Yes [id number] 5mg Q.5D Take 1 tablet (5 mg total) by mouth 2 times daily as needed for muscle spasms. Allie bales NIFEdipine 0.2 % in Lidocaine 5 % 60 g compounded rectal ointment 2025-0 3-25 00:00: 00 Yes [id number] 1{appli cation} Q.5D Apply 1 Applicatio n rectally 2 times daily (Apply pea-sized amount to fingertip and then apply just inside anus). Allie bales Hydrocortis one Acetate 25 MG rectal Suppository 3-25 00:00: 00 Yes [id number] 25mg Q.5D Apply 1 suppositor y (25 mg total) rectally 2 times daily. Allie bales Amitriptyli ne HCl 100 MG oral Tablet 08-09 00:00: 00 Yes [id number] 100mg TAKE ONE TABLET BY MOUTH EVERY EVENING Allie bales Escitalopra m Oxalate 20 MG oral Tablet 08-09 00:00: 00 Yes [id number] 20mg Q.5D TAKE 1 TABLET BY MOUTH TWICE A DAY Allie bales Amitriptyli ne HCl 100 MG oral Tablet 08-09 00:00: 00 Yes [id number] 100mg TAKE ONE TABLET BY MOUTH EVERY EVENING Allie bales Amoxicillin -Pot Clavulanate 875-125 MG oral Tablet 3 00:00: 00 08-16 04:59 :00 Yes [id number] 1{tbl} Q.5D Take 1 tablet by mouth 2 times daily for 7 days. Allie bales Lamotrigine 100 MG oral Tablet 2 00:00: 00 Yes [id number] 200mg QD Take 2 tablets (200 mg total) by mouth daily. Allie bales Tirzepatide (Mounjaro) 10 MG/0.5ML subcutaneou s Solution Auto-inject or 220 00:00: 00 Yes [id number] 10mg Q1W Inject 10 mg into the skin once a week. Allie bales Phentermine HCl 37.5 MG oral Tablet 07-27 00:00: 00 08-31 00:00 :00 No [id number] 37.5mg Take 1 tablet (37.5 mg total) by mouth every morning (before breakfast) . Allie bales Propranolol HCl 10 MG oral Tablet - 09:56: 32 06-12 00:00 :00 No [id number] 10mg Take 1 tablet (10 mg total) by mouth as needed. Allie bales Diethylprop ion HCl CR 75 MG oral TABLET SR 24 HR 2023-06 00:00: 00 07-27 00:00 :00 No [id number] 1{tbl} QD TAKE 1 TABLET BY MOUTH DAILY Allie bales Diclofenac Sodium 75 MG oral Tablet Delayed Response 2023-06 00:00: 00 07-27 00:00 :00 No Allie bales Orphenadrin e Citrate CR 100 MG oral Tablet 12 Hour Sustained Release 2023-06 00:00: 00 07-27 00:00 :00 No Allie bales Phenazopyri dine HCl 200 MG oral Tablet 2023-06 00:00: 00 06-12 00:00 :00 No TAKE 1 TABLET BY MOUTH EVERY 8 HOURS FOR 3 DAYS Allie bales TRIMETHOPRI M-SULFAMETH OXAZOLE (BACTRIM DS) 800-160 MG oral Tablet 2023-06 00:00: 00 06-12 00:00 :00 No TAKE 1 TABLET BY MOUTH EVERY 12 HOURS FOR 7 DYAS Allie bales Mounjaro 12.5 MG/0.5ML subcutaneou s Solution Auto-inject or 2023-06 00:00: 00 07-27 00:00 :00 No Inject 1 injection into the skin once a week for 4 weeks Allie bales methylPREDN ISolone 4 MG oral Tablet Therapy Pack 2023-06 00:00: 00 06-12 00:00 :00 No [id number] Take 1 mindy by mouth See Admin Instructio ns Use as directed. Allie bales Lidocaine HCl (Lidocaine Viscous HCl) 2 % mouth/throa t Solution 2023-06- 00:00: 00 06-12 00:00 :00 No [id number] 5 mL swished in the mouth and spit out or swallow every 3 hours (maximum: 4.5 mg/kg [or 300 mg per dose]; 8 doses per 24-hour period). Allie bales Amoxicillin 875 MG oral Tablet 2023-06 00:00: 00 04-02 04:59 :00 No [id number] 875mg Q.5D Take 1 tablet (875 mg total) by mouth 2 times daily for 7 days. Allie bales Diethylprop ion HCl CR 75 MG oral TABLET SR 24 HR 03-03 00:00: 00 Yes [id number] 1{tbl} QD Take 1 tablet by mouth daily. Allie bales Cyanocobala min (VIT B12) injection 1,000 mcg 02-21 16:52: 27 No [id number] 1000ug 1,000 mcg, intramuscu lar, ONCE, On Wed02/22/24 at 1630, For 1 dose Allie bales Propranolol HCl 10 MG oral Tablet 02-21 15:52: 32 Yes [id number] 10mg Take 1 tablet (10 mg total) by mouth as needed. Allie bales Tirzepatide (Mounjaro) 12.5 MG/0.5ML subcutaneou s Solution Pen-injecto r 02-21 00:00: 00 Yes [id number] 12.5mg Q1W Inject 0.5 mL (12.5 mg total) into the skin once a week. Allie bales Diethylprop ion HCl CR 75 MG oral TABLET SR 24 HR 02-21 00:00: 00 Yes [id number] 1{tbl} QD Take 1 tablet by mouth daily. Allie bales Tirzepatide (Mounjaro) 12.5 MG/0.5ML subcutaneou s Solution Pen-injecto r 02-21 00:00: 00 07-27 00:00 :00 No [id number] 12.5mg Q1W Inject 0.5 mL (12.5 mg total) into the skin once a week. Allie bales Phentermine HCl 15 MG oral Capsule 9-04 00:00: 00 02-21 00:00 :00 No [id number] 15mg take 1 capsule by mouth every morning Allie bales Mounjaro 10 MG/0.5ML subcutaneou s Solution Pen-injecto r 7-28 00:00: 00 02-21 00:00 :00 No [id number] Inject 1 injection into the skin once a week for 4 weeks Allie bales Valacyclovi r HCl 1 g oral Tablet 5-31 00:00: 00 06-12 00:00 :00 No [id number] 2000mg Q.5D Take 2 tablets (2,000 mg total) by mouth 2 times daily. Allie bales Phentermine HCl 15 MG oral Capsule 5-24 00:00: 00 Yes [id number] 15mg Take 1 capsule (15 mg total) by mouth every morning. Allie bales Oxybutynin Chloride (Ditropan XL) 5 MG oral TABLET SR 24 HR 5-24 00:00: 00 06-12 00:00 :00 No [id number] 5mg QD Take 1 tablet (5 mg total) by mouth daily. Allie bales Mounjaro 10 MG/0.5ML subcutaneou s Solution Pen-injecto r 5-20 00:00: 00 Yes [id number] Inject 1 injection into the skin once a week for 4 weeks Allie bales Levothyroxi ne Sodium 150 MCG oral Tablet 5-20 00:00: 00 Yes [id number] 150ug QD Take 1 tablet (150 mcg total) by mouth daily. Allie bales Cranberry (Ellura) 200 MG oral Capsule -17 00:00: 00 06-12 00:00 :00 No Take once daily. Allie bales Phentermine HCl 15 MG oral Capsule 4-30 00:00: 00 24 00:00 :00 No [id number] 15mg TAKE 1 CAPSULE BY MOUTH EVERY MORNING Allie bales Nystatin [id number] UNIT/GM apply externally Cream 09-27 00:00: 00 10-28 00:00 :00 No [id number] Insert 1 suppositor y (100,000 units) into the vagina nightly for 14 nights. Allie bales Amoxicillin -Pot Clavulanate 875-125 MG oral Tablet 09-22 00:00: 00 10-28 00:00 :00 No [id number] 1{tbl} Take 1 tablet by mouth 2 times daily. Allie bales levoFLOXaci n 750 MG oral Tablet 09-20 00:00: 00 10-28 00:00 :00 No [id number] 750mg Take 1 tablet (750 mg total) by mouth daily. Allie bales Fluconazole 150 MG oral Tablet 09-20 00:00: 00 10-28 00:00 :00 No [id number] 150mg Take 1 tablet (150 mg total) by mouth once a week. Allie bales Nitrofurant oin Monohyd Macro (Macrobid) 100 MG oral Capsule 09-13 00:00: 00 09-20 00:00 :00 No [id number] 100mg Take 1 capsule (100 mg total) by mouth 2 times daily. Allie bales Cephalexin 500 MG oral Capsule 08-24 16:06: 56 08-24 00:00 :00 No TAKE 1 CAPSULE BY MOUTH IN THE MORNING AND AT NOON AND IN THE EVENING Allie bales Propranolol HCl 10 MG oral Tablet 08-24 15:55: 28 Yes [id number] 10mg Take 1 tablet (10 mg total) by mouth as needed. Allie bales Cephalexin 500 MG oral Capsule 08-24 00:00: 00 Yes [id number] TAKE 1 CAPSULE BY MOUTH IN THE MORNING AND AT NOON AND IN THE EVENING. Allie bales Fluconazole 150 MG oral Tablet 08-24 00:00: 00 Yes [id number] Take 1 tab today and then 1 tab in 5 days. Allie bales Phentermine HCl 15 MG oral Capsule 08-24 00:00: 00 Yes [id number] 15mg Take 1 capsule (15 mg total) by mouth every morning. Allie bales cephALEXin (KEFLEX) capsule 500 mg 08-14 04:00: 00 08-14 04:00 :00 No 500mg 500 mg, Oral, ONCE, 1 dose, On 08/14/23 at 2200, YU
Re ason for Anti-Infec tive: Documented Infection< br>Documen sadi Infection Site: Urine
D uration of Therapy: Once (ED) [facility] cephALEXin 500 mg capsule 08-13 00:00: 00 Yes [id number] 500mg Take 1 capsule by mouth in the morning and 1 capsule at noon and 1 capsule in the evening. [facility] phenazopyri dine 200 mg tablet 08-13 00:00: 00 Yes [id number] 200mg Take 1 tablet by mouth in the morning and 1 tablet at noon and 1 tablet in the evening. [facility] Phenazopyri dine HCl 200 MG oral Tablet [...] 00:00: 00 10-28 00:00 :00 No 10mg Q.[id number] 3D Take 1 tablet (10 mg total) by mouth 3 times daily as needed for muscle spasms. Allie bales Ibuprofen (MOTRIN) 600 MG oral Tablet 3-04 00:00: 00 10-28 00:00 :00 No 600mg Q.25D Take 1 tablet (600 mg total) by mouth every 6 hours as needed for pain. Allie bales predniSONE (DELTASONE) 10 MG oral tablet 3-04 00:00: 00 08-21 04:59 :00 No Take 4 tablets (40 mg total) by mouth daily for 3 days, THEN 3 tablets (30 mg total) daily for 3 days, THEN 2 tablets (20 mg total) daily for 3 days, THEN 1 tablet (10 mg total) daily for 3 days. Allie bales Propranolol HCl 10 MG oral Tablet 08-04 11:25: 06 Yes [id number] 10mg Take 1 tablet (10 mg total) by mouth as needed. Allie bales Fluconazole 150 MG oral Tablet 08-04 00:00: 00 05:59 :00 No [id number] 150mg Take 1 tablet (150 mg total) by mouth once for 1 dose. Allie bales Fluconazole 150 MG oral Tablet 08-03 00:00: 00 08-24 00:00 :00 No Allie bales Amitriptyli ne HCl 100 MG oral Tablet 07-21 16:59: 24 07-21 00:00 :00 No [id number] 100mg Take 1 tablet (100 mg total) by mouth nightly. Allie bales Escitalopra m Oxalate 20 MG oral Tablet 07-21 16:59: 24 07-21 00:00 :00 No [id number] 20mg Take 1 tablet (20 mg total) by mouth 2 times daily. Allie bales Lamotrigine (LaMICtal) 100 MG oral Tablet 07-21 16:59: 24 07-21 00:00 :00 No [id number] 100mg Take 1 tablet (100 mg total) by mouth 2 times daily. Allie bales Propranolol HCl 10 MG oral Tablet 07-21 16:19: 54 Yes [id number] 10mg Take 1 tablet (10 mg total) by mouth as needed. Allie bales Tirzepatide (Mounjaro) 10 MG/0.5ML subcutaneou s Solution Pen-injecto r 07-21 00:00: 00 Yes [id number] 10mg Inject 0.5 mL (10 mg total) into the skin once a week. Allie bales Amitriptyli ne HCl 100 MG oral Tablet 07-21 00:00: 00 Yes [id number] 100mg QD Take 1 tablet (100 mg total) by mouth nightly. Allie bales Escitalopra m Oxalate 20 MG oral Tablet 07-21 00:00: 00 Yes [id number] 20mg Q.5D Take 1 tablet (20 mg total) by mouth 2 times daily. Allie bales Lamotrigine (LaMICtal) 100 MG oral Tablet 07-21 00:00: 00 Yes [id number] 100mg Q.5D Take 1 tablet (100 mg total) by mouth 2 times daily. Allie bales Ondansetron (ZOFRAN) 4 MG oral TABLET DISPERSIBLE 07-21 00:00: 00 06-12 00:00 :00 No [id number] 4mg Q.[id number] 3D Take 1 tablet (4 mg total) by mouth every 8 hours as needed for nausea. Allie bales Semaglutide -Weight Management (Wegovy) 1.7 MG/0.75ML subcutaneou s Solution Auto-inject or 07-21 00:00: 00 07-21 00:00 :00 No [id number] 1.7mg Inject 1.7 mg into the skin once a week. Allie bales linaCLOtide (Linzess) 145 MCG oral Capsule 2024-0 2-12 00:00: 00 06-12 00:00 :00 No [id number] 145ug QD Take 1 capsule (145 mcg total) by mouth daily. Allie bales Amitriptyli ne HCl 100 MG oral Tablet 2022-06 010 14:36: 17 Yes [id number] 100mg Take 1 tablet (100 mg total) by mouth nightly. Allie bales Escitalopra m Oxalate 20 MG oral Tablet 2022-06 14:36: 17 Yes [id number] 20mg Take 1 tablet (20 mg total) by mouth 2 times daily. Allie bales Lamotrigine (LaMICtal) 100 MG oral Tablet 2022-06 14:36: 17 Yes [id number] 100mg Take 1 tablet (100 mg total) by mouth 2 times daily. Allie bales Propranolol HCl 10 MG oral Tablet 2022-06 14:36: 17 Yes [id number] 10mg Take 1 tablet (10 mg total) by mouth as needed. Allie bales methylPREDN ISolone 4 MG oral Tablet Therapy Pack 2022-06 0 00:00: 00 Yes [id number] 1{mindy} Take 1 mindy by mouth See Admin Instructio ns Use as directed. Allie bales Ibuprofen (MOTRIN) 800 MG oral Tablet 2022-06 00:00: 00 02-21 00:00 :00 No [id number] 800mg Q.25D Take 1 tablet (800 mg total) by mouth every 6 hours as needed for pain. Allie bales Azithromyci n 250 MG oral Tablet 2022-06 010 00:00: 00 03-22 04:59 :00 No [id number] Take 2 tablets by mouth on day 1 then 1 tablet by mouth daily for 4 days thereafter .. Allie bales Amitriptyli ne HCl 100 MG oral Tablet 9-20 15:30: 07 Yes [id number] 100mg Take 1 tablet (100 mg total) by mouth nightly. Allie bales Escitalopra m Oxalate 20 MG oral Tablet 02-24 15:30: 07 Yes [id number] 20mg Take 1 tablet (20 mg total) by mouth 2 times daily. Allie bales Lamotrigine (LaMICtal) 100 MG oral Tablet 02-24 15:30: 07 Yes [id number] 100mg Take 1 tablet (100 mg total) by mouth 2 times daily. Allie bales Propranolol HCl 10 MG oral Tablet 02-24 15:30: 07 Yes [id number] 10mg Take 1 tablet (10 mg total) by mouth as needed. Allie bales Phentermine HCl 15 MG oral Capsule 02-24 00:00: 00 08-24 00:00 :00 No [id number] 15mg Take 1 capsule (15 mg total) by mouth every morning. Allie bales Semaglutide -Weight Management (Wegovy) 1 MG/0.5ML subcutaneou s Solution Auto-inject or 02-24 00:00: 00 07-21 00:00 :00 No [id number] 1mg Inject 1 mg into the skin once a week. Allie bales Linzess 145 MCG oral Capsule 01-25 00:00: 00 Yes [id number] 145ug TAKE 1 CAPSULE(14 5 MCG) BY MOUTH DAILY Allie bales Amitriptyli ne HCl 100 MG oral Tablet 01-08 14:53: 56 Yes [id number] 100mg Take 1 tablet (100 mg total) by mouth nightly Allie bales Escitalopra m Oxalate 20 MG oral Tablet 01-08 14:53: 56 Yes [id number] 20mg Take 1 tablet (20 mg total) by mouth 2 times daily Allie bales Lamotrigine (LaMICtal) 100 MG oral Tablet 01-08 14:53: 56 Yes [id number] 100mg Take 1 tablet (100 mg total) by mouth 2 times daily Allie bales Propranolol HCl 10 MG oral Tablet 01-08 14:53: 56 Yes [id number] 10mg Take 1 tablet (10 mg total) by mouth as needed Allie bales Phenazopyri dine HCl 200 MG oral Tablet 01-08 00:00: 00 07-21 00:00 :00 No [id number] 200mg Q.[id number] 3D Take 1 tablet (200 mg total) by mouth 3 times daily as needed for pain Allie bales Ciprofloxac in HCl (Cipro) 500 MG oral Tablet 01-08 00:00: 00 01-16 04:59 :00 No [id number] 500mg Take 1 tablet (500 mg total) by mouth 2 times daily for 7 days Allie bales Fluconazole 150 MG oral Tablet 01-08 00:00: 00 01-09 04:59 :00 No [id number] 150mg Take 1 tablet (150 mg total) by mouth once for 1 dose Allie bales Amitriptyli ne HCl 100 MG oral Tablet 11-24 14:58: 08 Yes [id number] 100mg Take 1 tablet (100 mg total) by mouth nightly Allie bales Escitalopra m Oxalate 20 MG oral Tablet 11-24 14:58: 08 Yes [id number] 20mg Take 1 tablet (20 mg total) by mouth 2 times daily Allie bales Lamotrigine (LaMICtal) 100 MG oral Tablet 11-24 14:58: 08 Yes [id number] 100mg Take 1 tablet (100 mg total) by mouth 2 times daily Allie bales Propranolol HCl 10 MG oral Tablet 11-24 14:58: 08 Yes [id number] 10mg Take 1 tablet (10 mg total) by mouth as needed. Allie bales linaCLOtide (Linzess) 145 MCG oral Capsule 11-24 00:00: 00 Yes [id number] 145ug Take 1 capsule (145 mcg total) by mouth daily Allie bales Albuterol HFA 108 (90 Base) MCG/ACT IN AERS 11-24 00:00: 00 10-28 00:00 :00 No [id number] 2{puff} Q.25D Inhale 2 puffs into the lungs every 6 hours as needed for wheezing Allie bales Pseudoeph-B romphen-DM 30-2-10 MG/5ML oral Syrup 11-24 00:00: 00 07-21 00:00 :00 No [id number] 10mL Q.25D Take 10 mL by mouth 4 times daily as needed Allie bales Semaglutide -Weight Management (Wegovy) 1 MG/0.5ML subcutaneou s Solution Auto-inject or 11-24 00:00: 00 02-24 00:00 :00 No [id number] 1mg Inject 1 mg into the skin once a week Allie bales Semaglutide -Weight Management (Wegovy) 1 MG/0.5ML subcutaneou s Solution Auto-inject or 11-11 00:00: 00 11-24 00:00 :00 No [id number] 1mg Inject 1 mg into the skin once a week Allie bales Mounjaro 7.5 MG/0.5ML subcutaneou s Solution Pen-injecto r 11-10 00:00: 00 07-21 00:00 :00 No Allie bales Levothyroxi ne Sodium 150 MCG oral Tablet 10-27 13:12: 11 10-27 00:00 :00 No [id number] 150ug Take 1 tablet (150 mcg total) by mouth daily Allie bales Amitriptyli ne HCl 100 MG oral Tablet 10-27 12:52: 30 Yes [id number] 100mg Take 1 tablet (100 mg total) by mouth nightly Allie bales Escitalopra m Oxalate 20 MG oral Tablet 10-27 12:52: 30 Yes [id number] 20mg Take 1 tablet (20 mg total) by mouth 2 times daily Allie bales Lamotrigine (LaMICtal) 100 MG oral Tablet 10-27 12:52: 30 Yes [id number] 100mg Take 1 tablet (100 mg total) by mouth 2 times daily Allie bales Propranolol HCl 10 MG oral Tablet 10-27 12:52: 30 Yes [id number] 10mg Take 1 tablet (10 mg total) by mouth as needed Allie bales Levothyroxi ne Sodium 150 MCG oral Tablet 10-27 00:00: 00 Yes [id number] 150ug Take 1 tablet (150 mcg total) by mouth daily Allie bales Semaglutide -Weight Management (Wegovy) 1 MG/0.5ML subcutaneou s Solution Auto-inject or 10-27 00:00: 00 Yes [id number] 1mg Inject 1 mg into the skin once a week Allie bales Mounjaro 5 MG/0.5ML subcutaneou s Solution Pen-injecto r 10-07 00:00: 00 11-24 00:00 :00 No Allie bales Semaglutide -Weight Management (Wegovy) 0.5 MG/0.5ML subcutaneou s Solution Auto-inject or 10-07 00:00: 00 10-27 00:00 :00 No [id number] .5mg Inject 0.5 mg into the skin once a week Allie bales Propranolol HCl 10 MG oral Tablet 09-09 16:09: 03 Yes [id number] 10mg Take 1 tablet (10 mg total) by mouth as needed Allie bales Lamotrigine (LaMICtal) 100 MG oral Tablet 09-09 16:08: 26 Yes [id number] 100mg Take 1 tablet (100 mg total) by mouth 2 times daily Allie bales Amitriptyli ne HCl 100 MG oral Tablet 09-09 16:07: 03 Yes [id number] 100mg Take 1 tablet (100 mg total) by mouth nightly Allie bales Levothyroxi ne Sodium 150 MCG oral Tablet 09-09 16:07: 03 Yes [id number] 150ug Take 1 tablet (150 mcg total) by mouth daily Allie bales Escitalopra m Oxalate 20 MG oral Tablet 09-09 16:07: 03 Yes [id number] 20mg Take 1 tablet (20 mg total) by mouth 2 times daily Allie bales Nitrofurant oin Monohyd Macro (Macrobid) 100 MG oral Capsule 09-09 00:00: 00 Yes [id number] 100mg Take 1 capsule (100 mg total) by mouth 2 times daily Allie bales Tirzepatide (Mounjaro) 2.5 MG/0.5ML subcutaneou s Solution Pen-injecto r 09-09 00:00: 00 Yes [id number] 2.5mg Inject 0.5 mL (2.5 mg total) into the skin once a week Allie bales Ondansetron (ZOFRAN) 4 MG oral TABLET DISPERSIBLE 09-09 00:00: 00 07-21 00:00 :00 No [id number] 4mg Q.[id number] 3D Take 1 tablet (4 mg total) by mouth every 8 hours as needed for nausea Allie bales Vitamin B12 (Cyanocobal noble) Vitamin B12 (Cyanocobal noble) 02-25 00:00: 00 No 1000ug [facility] Vitamin B12 (Cyanocobal noble) Vitamin B12 (Cyanocobal noble) 02-25 00:00: 00 No 1000ug [facility] Vitamin B12 (Cyanocobal noble) Vitamin B12 (Cyanocobal noble) 02-25 00:00: 00 No 1000ug [facility] Cyanocobala min Cyanocobala min 02-25 00:00: 00 No [facility] Vitamin B12 (Cyanocobal noble) Vitamin B12 (Cyanocobal noble) 02-25 00:00: 00 No [facility] Azithromyci n 250 MG Azithromyci n 250 MG 2-09 00:00: 00 07-21 00:00 :00 No QD Azithromyc in 250 MG Vitamin B12 (Cyanocobal noble) Vitamin B12 (Cyanocobal noble) 1- 00:00: 00 No [facility] Vitamin B12 (Cyanocobal noble) Vitamin B12 (Cyanocobal noble) - 00:00: 00 No [facility] Vitamin B12 (Cyanocobal noble) Vitamin B12 (Cyanocobal noble) 07-01 00:00: 00 No [facility] Vitamin B12 (Cyanocobal noble) Vitamin B12 (Cyanocobal noble) 07-01 00:00: 00 No [facility] Vitamin B12 (Cyanocobal noble) Vitamin B12 (Cyanocobal noble) 07-01 00:00: 00 No [facility] Vitamin B12 (Cyanocobal noble) Vitamin B12 (Cyanocobal noble) 25 00:00: 00 No [facility] Nitrofurant oin&Nit. Macrocryst 100 mg capsule 2020-06 2-07 00:00: 00 05-21 05:59 :00 No [id number] 100mg Take 1 capsule by mouth 2 (two) times daily for 7 days. General acute hospital Synthroid 175 MCG Synthroid 175 MCG 2020-06 0-25 00:00: 00 No QD Synthroid 175 MCG Vitamin B12 (Cyanocobal noble) Vitamin B12 (Cyanocobal noble) 2020-06 0-25 00:00: 00 No [facility] Vitamin B12 (Cyanocobal noble) Vitamin B12 (Cyanocobal noble) 2020-06 0-25 00:00: 00 No [facility] Vitamin B12 (Cyanocobal noble) Vitamin B12 (Cyanocobal noble) 2020-06 0-25 00:00: 00 No [facility] Vitamin B12 (Cyanocobal noble) Vitamin B12 (Cyanocobal noble) 2020-06 0-25 00:00: 00 No [facility] Vitamin B12 (Cyanocobal noble) Vitamin B12 (Cyanocobal noble) 2020-06 0-25 00:00: 00 No [facility] Vitamin B12 (Cyanocobal noble) Vitamin B12 (Cyanocobal noble) 2020-06 0-25 00:00: 00 No [facility] Amoxicillin -Pot Clavulanate 875-125 MG Amoxicillin -Pot Clavulanate 875-125 MG 9-29 00:00: 00 03-15 00:00 :00 No 1{table t} BID Amoxicilli n-Pot Clavulanat e 875-125 MG Levothyroxi ne Sodium 175 MCG Levothyroxi ne Sodium 175 MCG 2019-06 2-08 00:00: 00 No QD Levothyrox ine Sodium 175 MCG VALACYCLOVI R 500 mg tablet 4-14 00:00: 00 Yes [id number] TAKE 1 TABLET BY MOUTH TWICE DAILY FOR 6 DOSES General acute hospital valACYclovi r 500 mg tablet 2-18 00:00: 00 07-29 05:59 :00 No [id number] 500mg Take 1 tablet by mouth 2 (two) times daily for 6 doses. [facility] acute hospital fluconazole (DIFLUCAN) 200 mg tablet 2-11 00:00: 00 Yes [id number] 200mg Take 1 tablet by mouth daily. [facility] acute hospital escitalopra m oxalate (LEXAPRO) 20 mg tablet 2-10 20:11: 00 Yes 20mg Take 20 mg by mouth daily. [facility] acute hospital escitalopra m oxalate (LEXAPRO) 20 mg tablet 2-10 14:11: 00 Yes 20mg Take 20 mg by mouth daily. [facility] acute hospital meloxicam 7.5 mg tablet 2-06 00:00: 00 Yes TK 1 T PO ONCE D [facility] acute hospital Polyethylen e Glycol 3350 17 gram powder 2-06 00:00: 00 Yes MIX 1 PACKET IN 8 OUNCES OR WATER OR JUICE AND DRINK ONCE D [facility] acute hospital phentermine 37.5 mg tablet 07-03 00:00: 00 Yes [facility] acute hospital proMETHazin e (PHENERGAN) 25 mg tablet 07-05 00:00: 00 07-17 00:00 :00 No 25mg Take 1 Tab by mouth every 6 (six) hours as needed for Nausea and Vomiting (N/V). [facility] acute hospital acetaminoph en-codeine (TYLENOL-CO DEINE #3) 300-30 mg tablet 07-05 00:00: 00 07-17 00:00 :00 No 1{tbl} Take 1 Tab by mouth every 6 (six) hours as needed for Pain (scale 4-6). [facility] acute hospital escitalopra m oxalate (LEXAPRO) 20 mg tablet 07-01 17:09: 06 Yes 20mg Take 20 mg by mouth daily. [facility] acute hospital ibuprofen (MOTRIN) 800 mg tablet 06-21 00:00: 00 Yes 800mg Take 1 Tab by mouth every 6 (six) hours as needed for Pain (scale 4-6). [facility] acute hospital levothyroxi ne (SYNTHROID) 125 mcg tablet 2014-06 00:00: 00 Yes [facility] Take 1 Tab by mouth every morning. General acute hospital Tirosint 175 MCG Tirosint 175 MCG No [...] - single dose syringe 2022-02-25 16:11:00 Completed [facility] Flucelvax - single dose syringe Flucelvax - single dose syringe 2022-02-25 16:11:00 Completed [facility] Flucelvax - single dose syringe Flucelvax - single dose syringe 2022-02-25 16:11:00 Completed [facility] Flucelvax - single dose syringe Flucelvax - single dose syringe 2022-02-25 16:11:00 Completed [facility] Influenza, Injectable, Mdck, Preservative Free, Quadrivalt 2022-02-25 00:00:00 Completed Allie Garcia - External Influenza, Injectable, Mdck, Preservative Free, Quadrivalt 2022-02-25 00:00:00 Completed Allie Garcia - External Influenza, Injectable, Mdck, Preservative Free, Quadrivalt 2022-02-25 00:00:00 Completed Allie Garcia - External Influenza, Injectable, Mdck, Preservative Free, Quadrivalt 2022-02-25 00:00:00 Completed Allie Garcia - External Vitamin B12 (Cyanocobalamin) Vitamin B12 (Cyanocobalamin) 2021-03-31 15:17:00 Completed [facility] Influenza, Seasonal, Injectable 2021-02-26 00:00:00 Completed Allie Garcia - External Influenza, Seasonal, Injectable 2021-02-26 00:00:00 Completed Allie Garcia - External Influenza, Seasonal, Injectable 2021-02-26 00:00:00 Completed Allie Garcia - External Influenza, Seasonal, Injectable 2021-02-26 00:00:00 Completed Allie Garcia - External Afluria Afluria 2021-02-05 14:57:00 Completed [facility] Afluria Afluria 2021-02-05 14:57:00 Completed [facility] Afluria Afluria 2021-02-05 14:57:00 Completed [facility] A[facility]uria [facility] 2021-02-05 14:57:00 Completed [facility] A[facility]uria [facility] 2021-02-05 14:57:00 Completed [facility] Influenza, Seasonal, Injectable, Preservative Free 2021-02-05 00:00:00 Completed Allie Garcia - External Influenza, Seasonal, Injectable, Preservative Free 2021-02-05 00:00:00 Completed Allie Garcia - External Influenza, Seasonal, Injectable, Preservative Free 2021-02-05 00:00:00 Completed Allie Garcia - External Influenza, Seasonal, Injectable, Preservative Free 2021-02-05 00:00:00 Completed Allie Garcia - External SARS-COV-2 COVID-19 PFIZER VACCINE 2020-09-21 00:00:00 Completed [facility] SARS-COV-2 COVID-19 PFIZER VACCINE 2020-09-01 00:00:00 Completed [facility] Afluria single dose Afluria single dose 2020-03-04 15:36:00 Completed [facility] Afluria single dose Afluria single dose 2020-03-04 15:36:00 Completed [facility] Afluria single dose Afluria single dose 2020-03-04 15:36:00 Completed [facility] Afluria single dose Afluria single dose 2020-03-04 15:36:00 Completed [facility] Afluria single dose Afluria single dose 2020-03-04 15:36:00 Completed [facility] Influenza Virus Vaccine, No Preserv, age 6 months and up 2015-05-28 00:00:00 Completed Allie Garcia - External Pneumococcal Vaccine, Polysaccharide 2015-05-28 00:00:00 Completed Allie Garcia - External Influenza Virus Vaccine, No Preserv, age 6 months and up 2015-05-28 00:00:00 Completed Allie Garcia - External Pneumococcal Vaccine, Polysaccharide 2015-05-28 00:00:00 [...] 00:00:00 Completed Allie Seybold - External Pneumococcal Polysaccharide, PPSV23 (PNEUMOVAX) 2015-05-28 00:00:00 Completed [facility] Influenza Virus Vaccine Quad IM 3+ YRS 2015-05-28 00:00:00 Completed [facility] Pneumococcal Polysaccharide, PPSV23 (PNEUMOVAX) 2015-05-28 00:00:00 Completed [facility] Influenza Virus Vaccine Quad IM 3+ YRS 2015-05-28 00:00:00 Completed [facility] Pneumococcal Polysaccharide, PPSV23 (PNEUMOVAX) 2015-05-28 00:00:00 Completed [facility] Influenza Virus Vaccine Quad IM 3+ YRS 2015-05-28 00:00:00 Completed [facility] Pneumococcal Polysaccharide, PPSV23 (PNEUMOVAX) 2015-05-28 00:00:00 Completed [facility] Influenza Virus Vaccine Quad IM 3+ YRS 2015-05-28 00:00:00 Completed [facility] Pneumococcal Polysaccharide, PPSV23 (PNEUMOVAX) 2015-05-28 00:00:00 Completed [facility] Influenza Virus Vaccine Quad IM 3+ YRS 2015-05-28 00:00:00 Completed [facility] Pneumococcal Polysaccharide, PPSV23 (PNEUMOVAX) 2015-05-28 00:00:00 Completed [facility] Influenza Virus Vaccine Quad IM 3+ YRS 2015-05-28 00:00:00 Completed [facility] Pneumococcal Polysaccharide, PPSV23 (PNEUMOVAX) 2015-05-28 00:00:00 Completed [facility] Pneumococcal Polysaccharide, PPSV23 (PNEUMOVAX) 2015-05-28 00:00:00 Completed [facility] Influenza Virus Vaccine Quad IM 3+ YRS 2015-05-28 00:00:00 Completed [facility] Influenza Virus Vaccine Quad IM 3+ YRS 2015-05-28 00:00:00 Completed [facility] Pneumococcal Polysaccharide, PPSV23 (PNEUMOVAX) 2015-05-28 00:00:00 Completed [facility] Influenza Virus Vaccine Quad IM 3+ YRS 2015-05-28 00:00:00 Completed [facility] Pneumococcal Polysaccharide, PPSV23 (PNEUMOVAX) 2015-05-28 00:00:00 Completed [facility] Influenza Virus Vaccine Quad IM 3+ YRS 2015-05-28 00:00:00 Completed [facility] Pneumococcal Polysaccharide, PPSV23 (PNEUMOVAX) 2015-05-28 00:00:00 Completed [facility] Influenza Virus Vaccine Quad IM 3+ YRS 2015-05-28 00:00:00 Completed [facility] Influenza, Injectable, Mdck, Preservative Free, Quadrivalent Unknown [...] - External Pneumococcal Vaccine, Polysaccharide Unknown Completed Lalie Seybol d - External Influenza, Injectable, Mdck, [...] Seasonal, Injectable, Preservative Free Unknown Completed Allie Pantojay bold - External Influenza, Seasonal, Injectable Unknown [...] MDV Unknown Completed Allie Seybold - External Influenza Virus Vaccine, No Preserv, age 6 months and up Unknown Completed Allie S eybold - External Pneumococcal Vaccine, Polysaccharide Unknown Completed Allie Seybol d - External AFLURIA TRIVALENT MDV Unknown Completed Allie Pantojaybold - External Influenza, Injectable, Mdck, Preservative Free, Quadrivalent Unknown Completed Allie Pantojaybold - External AFLURIA TRIVALENT PF(0.5mL) Unknown Completed Allie Seybold - External AFLURIA TRIVALENT MDV Unknown Completed Allie Pantojaybold - External Influenza Virus Vaccine, No Preserv, age 6 months and up Unknown Completed Allie S eybold - External Pneumococcal Vaccine, Polysaccharide Unknown Completed Allie Pantojaybol d - External AFLURIA TRIVALENT MDV Unknown Completed Allie Pantojaybold - External Influenza, Injectable, Mdck, Preservative Free, Quadrivalent Unknown Completed Allie Pantojaybold - External AFLURIA TRIVALENT PF(0.5mL) Unknown Completed Allie Seybold - External AFLURIA TRIVALENT MDV Unknown Completed Allie Seybold - External Influenza [...] MDV Unknown Completed Allie Seybold - External Influenza Virus Vaccine, No Preserv, age 6 months and up Unknown Completed Allie S eybold - External Pneumococcal Vaccine, Polysaccharide Unknown Completed Allie Pantojaol d - External AFLURIA TRIVALENT MDV Unknown Completed Allie Pantojaold - External Influenza, Injectable, Mdck, Preservative Free, Quadrivalent Unknown Completed Allie Seybold - External AFLURIA TRIVALENT PF(0.5mL) Unknown Completed Allie Seybold - External AFLURIA TRIVALENT MDV Unknown Completed Allie Pantojaold - External Influenza Virus Vaccine, No Preserv, age 6 months and up Unknown Completed Allie S eybold - External Pneumococcal Vaccine, Polysaccharide Unknown Completed Allie Pantojaol d - External AFLURIA TRIVALENT MDV Unknown Completed Allie ybold - External Influenza, Injectable, Mdck, Preservative Free, Quadrivalent Unknown Completed Allie Pantojaold - External AFLURIA TRIVALENT PF(0.5mL) Unknown Completed Allie old - External AFLURIA TRIVALENT MDV Unknown [facility] Influ[facility] Virus Vaccine, No Preserv, age 6 months and up Unknown Completed Allie S eybold - External Pneumococcal Vaccine, Polysaccharide [facility]AL[facility] Completed Allie Seold - External Influenza, Injectable, Mdck, Preservative Free, Quadrivalent Unknown Completed Allie Pantojaold - External AFLURIA TRIVALENT PF(0.5mL) Unknown Completed Allie ybold - External AFLURIA TRIVALENT MDV Unknown Completed Allie Pantojaold - External Influenza Virus Vaccine, No Preserv, age 6 months and up Unknown Completed Allie Prasanth eybold - External Pneumococcal Vaccine, Polysaccharide Unknown Completed Allie ol d - External AFLURIA TRIVALENT MDV Unknown Completed Allie Seybold - External COVID-19 Vaccine(Aseptia)(12yr s+) Unknown Completed Allie Seybold - External Influenza, Injectable, Mdck, Preservative Free, Quadrivalent Unknown Completed Allie Seybold - External AFLURIA TRIVALENT PF(0.5mL) Unknown Completed Allie Seybold - External AFLURIA TRIVALENT MDV Unknown Completed Allie Seybold - External Influenza Virus Vaccine, No Preserv, age 6 months and up Unknown Completed Allie S eybold - External Pneumococcal Vaccine, Polysaccharide Unknown Completed Allie Seybol d - External AFLURIA TRIVALENT MDV Unknown Completed Allie Pantojaradhaold - External COVID-19 Vaccine(Pfizer)(12yr s+) Unknown Completed Allie Mcdanielold - External Afluria single dose Afluria single dose Unknown Completed [facility] Afluria Afluria Unknown Completed [facility] Flucelvax - single dose syringe Flucelvax - single dose syringe Unknown Completed [facility] Pneumococcal Polysaccharide, PPSV23 (PNEUMOVAX) Unknown Completed [facility] Influenza Virus Vaccine Quad IM 3+ YRS Unknown Completed [facility] SARS-COV-2 COVID-19 PFIZER VACCINE Unknown Completed [facility] Vital Signs Vital Name Observation Time Observation Value Comments S ource Systolic blood pressure 2024-08-31 21:27:00 130 mm[Hg] Allie Seybo ld - External Diastolic blood pressure 2024-08-31 21:27:00 78 mm[Hg] Allie Seybo ld - External Heart rate 2024-08-31 21:27:00 82 /min Kelse y Seybold - External Body temperature 2024-08-31 21:27:00 36.06 Alexa Allie Seybold - External Respiratory rate 2024-08-31 21:27:00 15 /min Allie Pantojaybold - External Body height 2024-08-31 21:27:00 175.3 cm Fouzia staples Seybold - External Body weight 2024-08-31 21:27:00 86.183 kg Fouzia ey Seybold - External BMI 2024-08-31 21:27:00 28.06 kg/m2 Fouzia ey Seybold - External Systolic blood pressure 2024-08-10 16:28:00 116 mm[Hg] Allie Seybo ld - External Diastolic blood pressure 2024-08-10 16:28:00 74 mm[Hg] Allie Seybo ld - External Heart rate 2024-08-10 16:28:00 96 /min Kelse y Seybold - External Body temperature 2024-08-10 16:28:00 37.17 Alexa Allie Seybold - External Respiratory rate 2024-08-10 16:28:00 20 /min Allie Seybold - External Body height 2024-08-10 16:28:00 175.3 cm Fouzia ey Seybold - External Body weight 2024-08-10 16:28:00 85.446 kg Fouzia ey Seybold - External BMI 2024-08-10 16:28:00 27.82 kg/m2 Fouzia ey Seybold - External Oxygen saturation in Arterial blood by Pulse oximetry 2024-08-10 16:28:00 99 /min Allie Seybo ld - External Systolic blood pressure 2024-07-27 22:32:00 110 mm[Hg] Allie Seybo ld - External Diastolic blood pressure 2024-07-27 22:32:00 78 mm[Hg] Allie Seybo ld - External Heart rate 2024-07-27 22:32:00 95 /min Kelse y Seybold - External Body temperature 2024-07-27 22:32:00 36.67 Alexa Allie Seybold - External Respiratory rate 2024-07-27 22:32:00 15 /min Allie Seybold - External Body height 2024-07-27 22:32:00 175.3 cm Fouzia ey Seybold - External Body weight 2024-07-27 22:32:00 86.637 kg Fouzia ey Seybold - External BMI 2024-07-27 22:32:00 28.21 kg/m2 Fouzia ey Seybold - External Oxygen saturation in Arterial blood by Pulse oximetry 2024-07-27 22:32:00 96 /min Allie Seybo ld - External Systolic blood pressure 2024-06-16 19:59:00 122 mm[Hg] Allie Seybo ld - External Diastolic blood pressure 2024-06-16 19:59:00 88 mm[Hg] Allie Seybo ld - External Heart rate 2024-06-16 19:59:00 84 /min Kelse y Seybold - External Body temperature 2024-06-16 19:59:00 35.83 Alexa Allie Seybold - External Respiratory rate 2024-06-16 19:59:00 16 /min Allie Seybold - External Body height 2024-06-16 19:59:00 175.3 cm Fouzia ey Seybold - External Body weight 2024-06-16 19:59:00 84.732 kg Fouzia ey Seybold - External BMI 2024-06-16 19:59:00 27.59 kg/m2 Fouzia ey Seybold - External Oxygen saturation in Arterial blood by Pulse oximetry 2024-06-16 19:59:00 97 /min Allie Mcdanielo ld - External Systolic blood pressure 2024-06-09 22:20:00 108 mm[Hg] Allie Seybo ld - External Diastolic blood pressure 2024-06-09 22:20:00 68 mm[Hg] Allie Seybo ld - External Heart rate 2024-06-09 22:20:00 76 /min Claudiose y Seybold - External Body temperature 2024-06-09 22:20:00 36.11 Alexa Allie Seybold - External Respiratory rate 2024-06-09 22:20:00 14 /min Allie Seybold - External Body height 2024-06-09 22:20:00 175.3 cm Fouzia ey Seybold - External Body weight 2024-06-09 22:20:00 86.637 kg Fouzia ey Seybold - External BMI 2024-06-09 22:20:00 28.21 kg/m2 Fouzia ey Seybold - External Oxygen saturation in Arterial blood by Pulse oximetry 2024-06-09 22:20:00 99 /min Allie Mcdanielo ld - External Systolic blood pressure 2024-02-22 20:46:00 110 mm[Hg] Allie Seybo ld - External Diastolic blood pressure 2024-02-22 20:46:00 78 mm[Hg] Allie Pantojaybo ld - External Heart rate 2024-02-22 20:46:00 82 /min Claudiose y Seybold - External Body temperature 2024-02-22 [...] External Heart rate 2023-08-25 20:31:00 84 /min Dariusz redmond Seybold - External Body temperature 2023-08-25 20:31:00 [...] Pulse oximetry 2023-08-25 20:31:00 99 /min Allie Pantojaybo ld - External Systolic blood pressure 2023-08-15 04:06:00 123 mm[Hg] [facility] Diastolic blood pressure 2023-08-15 04:06:00 83 mm[Hg] [facility] Heart rate 2023-08-15 04:06:00 80 /min [facility] Respiratory rate 2023-08-15 04:06:00 16 /min [facility] Oxygen saturation in Arterial blood by Pulse oximetry 2023-08-15 04:06:00 100 /min [facility] Body temperature 2023-08-15 02:38:00 36.78 Alexa [facility] Body height 2023-08-15 02:38:00 175.3 cm [facility] Body weight 2023-08-15 02:38:00 87.045 kg [facility] BMI 2023-08-15 02:38:00 28.34 kg/m2 [facility] Systolic blood pressure 2023-07-21 22:14:00 [...] Systolic blood pressure 2023-02-24 20:29:00 103 mm[Hg] Alile Seybo ld - External Diastolic [...] Diastolic blood pressure 2023-01-08 19:53:00 70 mm[Hg] Lalie Seybo ld - External Heart rate 2023-01-08 19:53:00 83 /min Claudiose y Seybold - External Body temperature 2023-01-08 [...] blood pressure 2022-09-09 20:59:00 126 mm[Hg] Allie Seybo ld - External Diastolic blood pressure 2022-09-09 20:59:00 86 mm[Hg] Allie Seybo ld - External Heart rate 2022-09-09 20:59:00 99 /min Kelse y Seybold - External Body temperature 2022-09-09 20:59:00 37.17 Alexa Allie Seybold - External Respiratory rate 2022-09-09 20:59:00 14 /min Allie Seybold - External Body height 2022-09-09 20:59:00 175.3 cm Fouzia ey Seybold - External Body weight 2022-09-09 20:59:00 114.306 kg Fouzia ey Seybold - External BMI 2022-09-09 20:59:00 37.21 kg/m2 Fouzia staples Seybold - External height 2022-07-28 16:40:00 69 [in_i] Commo n [facility] weight 2022-07-28 16:40:00 236 [lb_av] Comm on [facility] bmi 2022-07-28 16:40:00 34.85 kg/m2 Comm on [facility] blood pressure systolic 2022-07-28 16:40:00 121 mm[Hg] [facility] blood pressure diastolic 2022-07-28 16:40:00 75 mm[Hg] [facility] height 2022-03-23 16:20:00 69 [in_i] Commo n [facility] weight 2022-03-23 16:20:00 235 [lb_av] Comm on [facility] temperature 2022-03-23 16:20:00 98 [degF] Comm on [facility] bmi 2022-03-23 16:20:00 34.7 kg/m2 Commo n [facility] height 2022-02-25 15:50:00 69 [in_i] Commo n [facility] weight 2022-02-25 15:50:00 237.7 [lb_av] Co mmon [facility] temperature 2022-02-25 15:50:00 97.7 [degF] Com mon [facility] bmi 2022-02-25 15:50:00 35.1 kg/m2 Commo n [facility] oximetry 2022-02-25 15:50:00 97 % Commo n [facility] respiratory rate 2022-02-25 15:50:00 18 /min Common [facility] blood pressure systolic 2022-02-25 15:50:00 116 mm[Hg] [facility] blood pressure diastolic 2022-02-25 15:50:00 72 mm[Hg[facility] height 2021-10-27 11:40:00 69 [in_i] Commo n [facility] weight 2021-10-27 11:40:00 235 [lb_av] Comm on [facility] temperature 2021-10-27 11:40:00 98 [degF] Comm on [facility] bmi 2021-10-27 11:40:00 34.70 kg/m2 Comm on [facility] blood pressure systolic 2021-10-27 11:40:00 125 mm[Hg] [facility] blood pressure diastolic 2021-10-27 11:40:00 75 mm[Hg] [facility] height 2021-07-16 15:00:00 69 [in_i] Commo n [facility] weight 2021-07-16 15:00:00 237 [lb_av] Comm on [facility] temperature 2021-07-16 15:00:00 97 [degF] Comm on [facility] bmi 2021-07-16 15:00:00 34.99 kg/m2 Comm on [facility] blood pressure systolic 2021-07-16 15:00:00 121 mm[Hg] [facility] blood pressure diastolic 2021-07-16 15:00:00 70 mm[Hg] [facility] Systolic blood pressure 2021-05-13 21:16:00 128 mm[Hg] [facility] Diastolic blood pressure 2021-05-13 21:16:00 85 mm[Hg] [facility] Heart rate 2021-05-13 21:16:00 79 /min [facility] Body temperature 2021-05-13 21:16:00 36.56 Alexa [facility] Respiratory rate 2021-05-13 21:16:00 16 /min [facility] Body height 2021-05-13 21:16:00 175.3 cm [facility] Body weight 2021-05-13 21:16:00 104.327 kg [facility] BMI 2021-05-13 21:16:00 33.97 kg/m2 [facility] Oxygen saturation in Arterial blood by Pulse oximetry 2021-05-13 21:16:00 97 /min [facility] height 2021-03-31 15:00:00 69 [in_i] Commo n [facility] weight 2021-03-31 15:00:00 235.6 [lb_av] Co [facility] temperature 2021-03-31 15:00:00 97.7 [degF] Com mon [facility] bmi 2021-03-31 15:00:00 34.79 kg/m2 Comm on [facility] oximetry 2021-03-31 15:00:00 97 % Commo n [facility] respiratory rate 2021-03-31 15:00:00 17 /min [facility] blood pressure systolic 2021-03-31 15:00:00 117 mm[Hg] [facility] blood pressure diastolic 2021-03-31 15:00:00 76 mm[Hg] [facility] oximetry 2021-03-05 10:50:00 97 % Commo n [facility] respiratory rate 2021-03-05 10:50:00 18 /min [facility] blood pressure systolic 2021-03-05 10:50:00 114 mm[Hg] [facility] blood pressure diastolic 2021-03-05 10:50:00 83 mm[Hg] [facility] height 2021-03-05 10:50:00 69 [in_i] Commo n [facility] weight 2021-03-05 10:50:00 230.1 [lb_av] Co [facility] temperature 2021-03-05 10:50:00 97.3 [degF] Com mon [facility] bmi 2021-03-05 10:50:00 33.98 kg/m2 Comm on [facility] Systolic blood pressure 2019-07-25 21:36:00 116 mm[Hg] [facility] Diastolic blood pressure 2019-07-25 21:36:00 81 mm[Hg] [facility] Heart rate 2019-07-25 21:36:00 110 /min [facility] Body temperature 2019-07-25 21:36:00 36.78 Alexa [facility] Respiratory rate 2019-07-25 21:36:00 18 /min [facility] Body height 2019-07-25 21:36:00 175.3 cm [facility] Body weight 2019-07-25 21:36:00 118.842 kg [facility] BMI 2019-07-25 21:36:00 38.69 kg/m2 [facility] Systolic blood pressure 2019-07-17 20:07:00 131 mm[Hg] [facility] Diastolic blood pressure 2019-07-17 20:07:00 91 mm[Hg] [facility] Heart rate 2019-07-17 20:07:00 93 /min Unive [facility] Body temperature 2019-07-17 20:07:00 36.72 Alexa [facility] Respiratory rate 2019-07-17 20:07:00 20 /min [facility] Body height 2019-07-17 20:07:00 175.3 cm [facility] Body weight 2019-07-17 20:07:00 119.296 kg [facility] BMI 2019-07-17 20:07:00 38.84 kg/m2 [facility] Procedures Procedure Date / Time Performed Performing Clinician Source XR ANKLE 3+ VW LEFT 2023-08-15 03:16:44 Briana Ontiveros [facility] URINE DRUG (IMMUNOASSAY) - COMPREHENSIVE DRUG SCREEN 2023-08-15 03:07:00 Dari Ontiveros [facility] URINALYSIS 2023-08-15 03:07:00 Dari Ontiveros [facility] NOTICE OF PRIVACY PRACTICES 2023-08-15 02:35:06 Doctor Unassigned, [place] [facility] CONSENT/REFUSAL FOR DIAGNOSIS AND TREATMENT 2023-08-15 02:32:37 Doctor Unassigned, [place] [facility] URINALYSIS NONAUTO W/O SCOPE 2022-09-09 21:16:40 María Solorio Seybold - External SCANNED LAB RESULTS 2019-07-25 06:01:00 Doctor Meena copelandsignsamuel, [place] [facility] ASSIGNMENT OF BENEFITS 2019-07-17 19:47:28 Docto r Unassigned, [place] [facility] POCT URINALYSIS W/O SPECIFIC GRAVITY 2019-07-17 00:00:00 Olinda Flynn [facility] Encounters Start Date/Time End Date/Time Encounter Type Admission Type Attending [facility] Facility Care Department Encounter ID Source 2022-09-25 08:37:01 Outpatient Tao, Count includes the [facility] [id number] [facility] 2022-02-25 15:51:00 Outpatient Tao, Count includes the [facility] [id number] [facility] 2022-02-24 13:33:01 Outpatient Tao, Count includes the [facility] [id number] [facility] 2021-08-04 15:19:02 Outpatient Tao, [facility] [id number] [facility] 2021-07-15 15:22:01 Outpatient Tao, [facility] [id number] [facility] 2021-07-02 14:04:00 Outpatient Tao, [facility] [id number] [facility] 2021-07-02 13:54:34 Outpatient Tao, Count includes the [facility] [id number] [facility] 2021-07-02 11:59:13 Outpatient Tao, Count includes the [facility] [id number] [facility] 2024-11-17 15:30:00 2024-11-17 15:30:00 Outpatient GUILLERMINA AKHTAR ALLIE GOMEZ [id number] Allie Pantojaybamanda 2024-10-17 16:30:00 2024-10-17 16:30:00 Outpatient GUILLERMINA AKHTAR ALLIE GOMEZ [id number] Allie Seybamanda 2024-10-06 16:30:00 2024-10-06 16:30:00 Outpatient HUNDL, MARÍA GOMEZ [id number] [facility] 2024-09-01 00:00:00 2024-09-01 00:00:00 Outpatient HUNDL, MARÍA GOMEZ [id number] [facility] 2024-08-31 16:30:00 2024-08-31 16:30:00 Outpatient HUNDL, MARÍA GOMEZ [id number] [facility] 2024-08-29 00:00:00 2024-08-29 00:00:00 Outpatient HUNDL, MARÍA GOMEZ [id number] [facility] 2024-08-29 00:00:00 2024-08-29 00:00:00 Outpatient HUNDL, MARÍA GOMEZ [id number] [facility] 2024-08-25 00:00:00 2024-08-25 00:00:00 Outpatient HUNDL, MARÍA GOMEZ [id number] Allie Seybold 2024-08-24 08:35:00 2024-08-24 08:35:00 Outpatient LAB90 ALLIE GOMEZ [id number] Allie Seybold 2024-08-11 16:30:00 2024-08-11 16:30:00 Outpatient HUNDL, MARÍA GOMEZ [id number] Allie Seybold 2024-08-10 16:30:00 2024-08-10 16:30:00 Outpatient PREZAS, ESDRAS GOMEZ [id number] Allie Seybold 2024-08-10 10:30:00 2024-08-10 10:30:00 Outpatient AMATOCRYSTAL ALLRED [id number] Allie Seybold 2024-08-09 00:00:00 2024-08-09 00:00:00 Outpatient HUNDL, MARÍA ALLIE GOMEZ [id number] Allie ybamanda 2024-08-08 12:30:00 2024-08-08 12:30:00 Outpatient DANIEL LUCERO ALLIE GOMEZ [id number] [facility] 2024-08-04 00:00:00 2024-08-04 00:00:00 Outpatient HUNDL, MARÍA GOMEZ [id number] [facility] 2024-07-29 00:00:00 2024-07-29 00:00:00 Outpatient HUNDL, MARÍA GOMEZ [id number] [facility] 2024-07-27 16:30:00 2024-07-27 16:30:00 Outpatient HUNDL, MARÍA GOMEZ [id number] [facility] 2024-07-11 16:30:00 2024-07-11 16:30:00 Outpatient HUNDL, MARÍA GOMEZ [id number] [facility] 2024-06-23 00:00:00 2024-06-23 00:00:00 Outpatient HUNDL, MARÍA GOMEZ [id number] [facility] 2024-06-16 14:00:00 2024-06-16 14:00:00 Outpatient GUILLERMINA AKHTAR ALLIE GOMEZ [id number] [facility] 2024-06-14 08:00:00 2024-06-14 08:00:00 Outpatient RAMACHANDRA NDAVID [id number] Allie Seybold 2024-06-12 00:00:00 2024-06-12 00:00:00 Outpatient HUNDL, MARÍA GOMEZ [id number] Allie Seybold 2024-06-09 16:30:00 2024-06-09 16:30:00 Outpatient HUNDL, MARÍA GOMEZ [id number] Allie Seybold 2024-06-05 00:00:00 2024-06-05 00:00:00 Outpatient HUNDL, MARÍA GOMEZ [id number] Allie Seybold 2024-06-02 00:00:00 2024-06-02 00:00:00 Outpatient HUNDL, MARÍA GOMEZ [id number] Allie Seybold 2024-05-29 16:30:00 2024-05-29 16:30:00 Outpatient HUNDL, MARÍA ALLIE GOMEZ [id number] Allie Seybold 2024-05-29 00:00:00 2024-05-29 00:00:00 Outpatient HUNDL, MARÍA ALLIE GOMEZ [id number] Allie Seybold 2024-05-01 00:00:00 2024-05-01 00:00:00 Outpatient HUNDL, MARÍA GOMEZ [id number] Allie Seybold 2024-04-24 16:00:00 2024-04-24 16:00:00 Outpatient ALANIS REDDY ALLIE GOMEZ [id number] Allie Seybold 2024-04-21 16:00:00 2024-04-21 16:00:00 Outpatient JAIME NINA ALLIE GOMEZ [id number] [facility] 2024-04-17 00:00:00 2024-04-17 00:00:00 Outpatient HUNDL, MARÍA GOMEZ [id number] Allie Seybold 2024-04-12 00:00:00 2024-04-12 00:00:00 Outpatient HUNDL, MARÍA ALLIE GOMEZ [id number] Allie Seybold 2024-04-03 00:00:00 2024-04-03 00:00:00 Outpatient HUNDL, MARÍA GOMEZ [id number] Allie Seybold 2024-03-25 15:00:00 2024-03-25 15:00:00 Outpatient AUGIEYOGESH FARMER ALLIE GOMEZ [id number] Allie Seybold 2024-03-25 12:00:00 2024-03-25 12:00:00 Outpatient ALLIE GOMEZ [id number] Allie Seybold 2024-02-22 16:00:00 2024-02-22 16:00:00 Outpatient HUNDL, MARÍA GOMEZ [id number] Allie Seybold 2024-02-22 16:00:00 2024-02-22 16:00:00 Outpatient HUNDL, MARÍA ALLIE GOMEZ [id number] Allie [facility] 2024-02-08 00:00:00 2024-02-08 00:00:00 Outpatient HUNDL, MARÍA GOMEZ [id number] Allie [facility] 2024-01-06 00:00:00 2024-01-06 00:00:00 Outpatient HUNDL, MARÍA GOMEZ [id number] [facility] 2024-01-03 00:00:00 2024-01-03 00:00:00 Outpatient HUNDL, MARÍA GOMEZ [id number] Allie [facility] 2024-01-01 00:00:00 2024-01-01 00:00:00 Outpatient HUNDL, MARÍA GOMEZ [id number] [facility] 2023-12-01 00:00:00 2023-12-01 00:00:00 Outpatient HUNDL, MARÍA GOMEZ [id number] [facility] 2023-11-17 00:00:00 2023-11-17 00:00:00 Outpatient GINIMAN ALLIE GOMEZ [id number] [facility] 2023-11-08 16:30:00 2023-11-08 16:30:00 Outpatient HUNDL, MARÍA GOMEZ [id number] [facility] 2023-11-03 00:00:00 2023-11-03 00:00:00 Outpatient HUNDL, MARÍA GOMEZ [id number] [facility] 2023-10-29 16:30:00 2023-10-29 16:30:00 Outpatient HUNDL, MARÍA GOMEZ [id number] [facility] 2023-10-24 00:00:00 2023-10-24 00:00:00 Outpatient HUNDL, MARÍA GOMEZ [id number] [facility] 2023-10-22 15:00:00 2023-10-22 15:00:00 Outpatient MAICOJAIME [id number] [facility] 2023-10-21 00:00:00 2023-10-21 00:00:00 Outpatient HUNDL, MARÍA GOMEZ [id number] Allie Seybold 2023-10-12 00:00:00 2023-10-12 00:00:00 Outpatient HUNDL, MARÍA GOMEZ [id number] Allie Seybold 2023-10-05 00:00:00 2023-10-05 00:00:00 Outpatient HUNDL, MARÍA GOMEZ [id number] Allie Seybold 2023-10-01 00:00:00 2023-10-01 00:00:00 Outpatient HUNDL, MARÍA GOMEZ [id number] Allie Seybold 2023-10-01 00:00:00 2023-10-01 00:00:00 Outpatient HUNDL, MARÍA GOMEZ [id number] Allie Seybold 2023-09-28 00:00:00 2023-09-28 00:00:00 Outpatient HUNDL, MARÍA GOMEZ [id number] Allie Seybold 2023-09-28 00:00:00 2023-09-28 00:00:00 Outpatient HUNDL, MARÍA GOMEZ [id number] Allie Seybold 2023-09-27 16:30:00 2023-09-27 16:30:00 Outpatient HUNDL, MARÍA GOMEZ [id number] Allie Seybold 2023-09-23 00:00:00 2023-09-23 00:00:00 Outpatient HUNDL, MARÍA GOMEZ [id number] Allie Seybold 2023-09-21 15:00:00 2023-09-21 15:00:00 Outpatient PRINCE, JEFF GOMEZ [id number] Allie Seybold 2023-09-21 11:25:00 2023-09-21 11:25:00 Outpatient LAB90 ALLIE GOMEZ [id number] Allie Seybold 2023-09-21 10:30:00 2023-09-21 10:30:00 Outpatient HUNDL, MARÍA GOMEZ [id number] Allie Seybold 2023-09-20 00:00:00 2023-09-20 00:00:00 Outpatient HUNDL, MARÍA GOMEZ [id number] Allie Seybold 2023-09-14 00:00:00 2023-09-14 00:00:00 Outpatient MARÍA SOLORIO ALLIE GOMEZ [id number] [facility] 2023-09-13 15:50:00 2023-09-13 15:50:00 Outpatient LAB90 ALLIE GOMEZ [id number] [facility] 2023-09-11 13:00:00 2023-09-11 13:00:00 Outpatient SIMIN LEBRON ALLIE GOMEZ [id number] [facility] 2023-09-10 00:00:00 2023-09-10 00:00:00 Outpatient OSMIN MARÍA [facility] [id number] [facility] 2023-09-02 00:00:00 2023-09-02 00:00:00 Outpatient GC_GCBZW_Ka diyala_S PRIV PRIV [id number] [facility] 2023-09-02 00:00:00 2023-09-02 00:00:00 Outpatient ESDRAS FORTUNE [id number] [facility] 2023-09-02 00:00:00 2023-09-02 00:00:00 Outpatient OSMIN MARÍA ALLIE GOMEZ [id number] [facility] 2023-08-29 00:00:00 2023-08-29 00:00:00 Outpatient OSMIN MARÍA GOMEZ [id number] [facility] 2023-08-27 00:00:00 2023-08-27 00:00:00 Outpatient OSMIN MARÍA ALLIE GOMEZ [id number] [facility] 2023-08-26 14:30:00 2023-08-26 14:30:00 Outpatient ALLIE GOMEZ [id number] [facility] 2023-08-26 13:00:00 2023-08-26 13:00:00 Outpatient ALLIE GOMEZ [id number] [facility] 2023-08-25 16:20:00 2023-08-25 16:20:00 Outpatient LAB90 ALLIE GOMEZ [id number] [facility] 2023-08-25 15:30:00 2023-08-25 15:30:00 Outpatient MARÍA SOLORIO [id number] Allie [facility] 2023-08-14 20:41:00 2023-08-14 22:12:00 Emergency X DARI ONTIVEROS [facility] ERT [id number] General acute hospital 2023-08-14 20:41:00 2023-08-14 22:12:00 Emergency [place] Dari [facility] 1.2.840.114 [id number] [id number] [id number] General acute hospital 2023-08-09 19:45:00 2023-08-09 19:45:00 Outpatient WILMER MARS [id number] [facility]04 11:30:00 2023-08-04 11:30:00 Outpatient ALYSA ZHANG [id number] [facility] 2023-08-04 00:00:00 2023-08-04 00:00:00 Outpatient GC_GCBZW_Ka diyala_S PRIV [facility] [id number] [facility] 2023-08-03 17:20:00 2023-08-03 17:20:00 Outpatient PROVIDERBASILIA [id number] [facility]-08-03 16:25:00 2023-08-03 16:25:00 Outpatient PROVIDERBASILIA [id number] Allie [facility] 2023-08-03 00:00:00 2023-08-03 00:00:00 Outpatient MARÍA SOLORIO [id number] [facility]23-08-03 00:00:00 2023-08-03 00:00:00 Outpatient MARÍA SOLORIO [id number] Allie Garcia 2023-07-22 16:30:00 2023-07-22 16:30:00 Outpatient MARÍA SOLORIO [id number] Allie zane 2023-07-22 00:00:00 2023-07-22 00:00:00 Outpatient HUNDL, MARÍA GOMEZ [id number] [facility] 2023-07-21 16:30:00 2023-07-21 16:30:00 Outpatient VANESSASruthi MARÍA GOMEZ [id number] [facility] 2023-07-14 00:00:00 2023-07-14 00:00:00 Outpatient VANESSASruthi MARÍA GOMEZ [id number] [facility] 2023-07-12 00:00:00 2023-07-12 00:00:00 Outpatient GC_GCBZW_Ka diyala_S PRIV PRIV [id number] [facility] 2023-07-08 00:00:00 2023-07-08 00:00:00 Outpatient GC_GCBZW_Ka diyala_S PRIV PRIV [id number] [facility] 2023-07-07 00:00:00 2023-07-07 00:00:00 Outpatient GC_GCBZW_Ka diyala_S PRIV PRIV [id number] [facility] 2023-07-02 00:00:00 2023-07-02 00:00:00 Outpatient GC_GCBZW_Ka diyala_S PRIV PRIV [id number] [facility] 2023-07-01 00:00:00 2023-07-01 00:00:00 Outpatient OSMIN MARÍA GOMEZ [id number] [facility] 2023-06-23 10:55:00 2023-06-23 10:55:00 Outpatient PROVIDERBASILIA [id number] [facility] 2023-06-23 06:15:00 2023-06-23 06:15:00 Outpatient PROVIDERBASILIA [id number] [facility] 2023-06-16 00:00:00 2023-06-16 00:00:00 Outpatient GC_GCBZW_Ka diyala_S PRIV PRIV [id number] [facility] 2023-06-14 00:00:00 2023-06-14 00:00:00 Outpatient GC_GCBZW_Ka diyala_S PRIV PRIV [id number] [facility] 2023-04-26 00:00:00 2023-04-26 00:00:00 Outpatient GC_GCBZW_Ka diyala_S PRIV PRIV [id number] [facility] 2023-03-31 16:30:00 2023-03-31 16:30:00 Outpatient OSMIN, MARÍA GOMEZ [id number] [facility] 2023-03-16 14:30:00 2023-03-16 14:30:00 Outpatient MARÍA SOLORIO [id number] [facility] 2023-03-15 09:55:00 2023-03-15 09:55:00 Outpatient BASILIA KAM [id number] [facility] 2023-02-24 15:30:00 2023-02-24 15:30:00 Outpatient MARÍA SOLORIO [id number] [facility] 2023-01-25 00:00:00 2023-01-25 00:00:00 Outpatient MARÍA SOLORIO [id number] [facility] 2023-01-25 00:00:00 2023-01-25 00:00:00 Outpatient MARÍA SOLORIO [id number] [facility] 2023-01-11 00:00:00 2023-01-11 00:00:00 Outpatient GC_GCBZW_Ka diyala_S PRIV PRIV [id number] [facility] 2023-01-08 15:50:00 2023-01-08 15:50:00 Outpatient LAB90 ALLIE GOME[facility] [id number] [facility] 2023-01-08 15:00:00 2023-01-08 15:00:00 Outpatient MARÍA SOLORIO [id number] [facility] 2023-01-08 00:00:00 2023-01-08 00:00:00 Outpatient MD ALLIE HENRY [id number] [facility] 2022-11-24 15:30:2022-11-24 15:30:00 Outpatient HUNDL, MARÍA ALLIE GOMEZ [id number] [facility] 2022-11-11 16:30:00 2022-11-11 16:30:00 Outpatient HUNDL, MARÍA ALLIE GOMEZ [id number] Allie Panto[facility]anda 2022-11-10 00:00:00 2022-11-10 00:00:00 Outpatient HUNDL, MARÍA GOMEZ [id number] [facility] 2022-11-05 15:30:00 2022-11-05 15:30:00 Outpatient ALLIE GOMEZ [id number] [facility] 2022-11-03 15:30:00 2022-11-03 15:30:00 Outpatient HUNDL, MARÍA GOMEZ [id number] [facility] 2022-10-29 15:00:00 2022-10-29 15:00:00 Outpatient HUNDL, MARÍA GOMEZ [id number] [facility] 2022-10-28 14:30:00 2022-10-28 14:30:00 Outpatient HUNDL, MARÍA GOMEZ [id number] Allie [facility] 2022-10-27 13:00:00 2022-10-27 13:00:00 Outpatient HUNDL, MARÍA GOMEZ [id number] [facility] 2022-10-23 00:00:00 2022-10-23 00:00:00 Outpatient HUNDL, MARÍA GOMEZ [id number] [facility] 2022-10-23 00:00:00 2022-10-23 00:00:00 Outpatient PREZAS ESDRAS GOMEZ [id number] Allie Seybold 2022-10-23 00:00:00 2022-10-23 00:00:00 Outpatient PREZASESDRAS [id number] [facility] 2022-10-23 00:00:00 2022-10-23 00:00:00 Outpatient RAISSA[facility] ALLIE GOMEZ [id number] Allie Seybold 2022-10-22 15:40:00 2022-10-22 15:40:00 Outpatient ALLIE GOMEZ [id number] [facility] 2022-10-19 08:30:00 2022-10-19 08:30:00 Outpatient MARÍA SOLORIO ALLIE [id number] Allie Pantojaamanda 2022-10-07 09:30:00 2022-10-07 09:30:00 Outpatient MARÍA SOLORIO ALLIE [id number] [facility] 2022-10-07 09:30:00 2022-10-07 09:30:00 Outpatient MARÍA SOLORIOYOLANDA GOMEZ [id number] Allie [facility] 2022-10-06 00:00:00 2022-10-06 00:00:00 Outpatient MARÍA SOLORIO ALLIE GOMEZ [id number] Allie [facility] 2022-10-06 00:00:00 2022-10-06 00:00:00 Outpatient MARÍA SOLORIO ALLIE GOMEZ [id number] [facility] 2022-09-09 16:45:00 2022-09-09 16:45:00 Outpatient LAB90 ALLIE ALLIE [id number] [facility] 2022-09-09 16:00:00 2022-09-09 16:00:00 Outpatient MARÍA SOLORIO ALLIE GOMEZ [id number] [facility] 2022-07-28 00:00:00 2022-07-28 00:00:00 OFFICE VISIT ESTAB PT LEVEL 3 [facility] ST[facility]C [id number] [facility] 2022-06-25 00:00:00 2022-06-25 00:00:00 (TEL) STLMLC STLMLC [id number] [facility] 2022-03-23 00:00:00 2022-03-23 00:00:00 OFFICE VISIT EST PT LEVEL 3 [facility]MLC STLMLC [id number] [facility] 2022-02-25 00:00:00 2022-02-25 00:00:00 PREV VISIT EST AGE 40-64 STLMLC STLMLC [id number] [facility] 2021-10-27 00:00:00 2021-10-27 00:00:00 OFFICE VISIT ESTAB PT LEVEL 4 STLMLC STLMLC [id number] [facility] 2021-07-16 00:00:00 2021-07-16 00:00:00 OFFICE VISIT EST PT LEVEL 3 [facility]LMLC STLMLC [id number] [facility] 2021-05-13 16:20:00 2021-05-13 15:37:27 Outpatient JON [facility] [id number] General acute hospital 2021-05-13 15:13:10 2021-05-13 15:37:27 [facility] [id number] 350.1.13.10 4.2.7.2.686 [id number] General acute hospital 2021-03-31 00:00:00 2021-03-31 00:00:00 OFFICE VISIT ESTAB PT LEVEL 4 [facility]LMLC STLMLC [id number] [facility] 2021-03-24 00:00:00 2021-03-24 00:00:00 (TEL) STLMLC STLMLC [id number] [facility] 2021-03-19 00:00:00 2021-03-19 00:00:00 (TEL) STLMLC STLMLC [id number] [facility] 2021-03-05 00:00:00 2021-03-05 00:00:00 OFFICE VISIT EST PT LEVEL 3 [facility]LMLC STLMLC [id number] [facility] 2021-01-27 00:00:00 2021-01-27 00:00:00 Outpatient [facility]MLC [facility] [id number] [facility] 2020-10-02 00:00:00 2020-10-02 00:00:00 Outpatient [facility]MLC [facility] [id number] [facility] 2020-09-22 16:30:00 2020-09-22 16:30:00 Outpatient [facility] [id number] General acute hospital 2020-09-21 16:30:00 2020-09-21 16:30:00 Outpatient [facility] [id number] General acute hospital 2020-09-01 16:05:00 2020-09-01 16:05:00 Outpatient [facility] [id number] General acute hospital 2020-08-22 00:00:00 2020-08-22 00:00:00 Patient Outreach Nicho Beth [facility] 1.840.114 350.1.13.10 4.2.7.2.686 [id number] General acute hospital 2020-07-14 19:30:50 2020-07-14 19:50:50 Laboratory Only Lab, Adc [facility] P[facility] Mary Maldonado [facility] Office [facility] 1.840.114 350.1.13.10 4.2.7.2.686 [id number] General acute hospital 2020-07-14 19:20:00 2020-07-14 19:20:00 Outpatient MARY SHANNON [facility] [id number] General acute hospital 2020-05-14 00:00:00 2020-05-14 00:00:00 Outpatient [facility] [id number] [facility] 2020-04-02 00:00:00 2020-04-02 00:00:00 Outpatient [facility] [id number] [facility] 2019-09-18 00:00:00 2019-09-18 00:00:00 Refill AdOlinda luna [facility] 1..840.114 350.1.13.10 4.2.7.2.686 [id number] General acute hospital 2019-07-28 00:00:00 2019-07-28 00:00:00 Telephone AdOlinda luna [facility] 1..840.114 350.1.13.10 4.2.7.2.686 [id number] General acute hospital 2019-07-25 14:58:47 2019-07-25 16:13:53 Office Visit AdumOlinda [facility] 1.2.840.114 350.1.13.10 4.2.7.2.686 [id number] General acute hospital 2019-07-25 00:00:00 2019-07-25 00:00:00 Orders Only Doctor Unassigned, [place] [facility] 1.2840.114 350.1.13.10 4.2.7.2.686 [id number] General acute hospital 2019-07-18 00:00:00 2019-07-18 00:00:00 Case Management Adum, [facility] 1.2.840.114 350.1.13.10 4.2.7.2.686 [id number] 134 [id number] General acute hospital 2019-07-18 00:00:00 2019-07-18 00:00:[facility] 1.2.840.114 350.1.13.10 4.2.7.2.686 [id number] 134 [id number] General acute hospital 2019-07-17 13:50:38 2019-07-17 14:55:46 [facility] 1.2.840.114 350.1.13.10 4.2.7.2.686 [id number] 134 [id number] General acute hospital 2019-07-17 00:00:00 2019-07-17 00:00:00 Orders Only Doctor Unassigned, [place] [facility] 1.2.840.114 350.1.13.10 4.2.7.2.686 [id number] General acute hospital Results Test Description Test Time Test Comments [...] noted.Mild soft tissue swelling is present. View [facility] Allie Seybold - ExternalLipid Panel With LDL/HDL [id number] 00:00:00* Test Item Value Reference Range Interpretation Comme nts Cholesterol, Total (test code = 2093-3) 192 mg/dL See_Comment [Automated message] The system which generated this result transmitted reference range: 100-199 mg/dL. The reference range was not used to interpret this result as normal/abnormal. Triglycerides (test code = 2571-8) 198 mg/dL See_Comment H [Automated [employer]] The system which generated this result transmitted reference range: 0-149 mg/dL. The reference range was not used to interpret this result as normal/abnormal. HDL Cholesterol (test code = 2085-9) 40 mg/dL See_Comment [[employer]] The system which generated this result transmitted reference range: >39 mg/dL. The reference range was not used to interpret this result as normal/abnormal. POCT URINALYSIS W/O SPECIFIC [id number] 20:17:00* Test Item Value Reference Range Interpretation [...] ve Lab Interpretation (test cod e = 35269-1) [facility] [id number] 20:17:00* Test Item Value Reference Range Interpretation [...] ve Lab Interpretation (test cod e = 63556-8) Abnormal [facility] Notes Date/Time Note Provider Source 2024-08-31 16:33:15 Chief Complaint Patient presents with Follow-up Follow up on anxiety and depression. Patient states that she is better. Diana Soto MA [facility] 2024-08-10 10:32:08 Chief Complaint Patient presents with Follow-up Tested positive for COVID Wednesday. Covid test negative today. Needs a work note go back to work Kelsea Godfrey LVN [facility] 2024-07-27 16:35:33 Chief Complaint Patient presents with Follow-up Follow up on medication Diana Soto MA [facility] 2024-06-16 14:01:30 Chief Complaint Patient presents with Consultation Adrenal prob Lalita Delgado MA [facility] 2024-06-09 16:25:23 Chief Complaint Patient presents with Mass [facility] found a mass on adrenal gland and was told to follow up with PCP HUNG Vargas [facility] 2024-02-22 15:52:33 Chief Complaint Patient presents with Physical Patient is not fasting. No other issues to discuss Diana Soto MA II [facility] 2023-10-29 16:22:56 Chief Complaint Patient presents with Follow-up Follow up on UTI Diana Soto MA II [facility] 2023-10-22 14:54:38 Amanda Philip is a 43 year old female Chief Complaint Patient presents with UTI Pt is here with c/o urgency and frequency She has Hx of recurrent UTI's She recently was treated with a course of Amoxicillin-Pot Clavulanate with she did help. Tri Escamilla MA II 10/22/2023 2:54 PM [facility] 2023-09-21 10:39:51 Chief Complaint Patient presents with UTI Complaining of frequency,urgency and burning. No blood in urine but slightly cloudy. She finished Macrobid last night but still having symptoms. Diana Soto MA II [facility] 2023-08-25 15:55:42 Chief Complaint Patient presents with Follow-up UTI UTI symptoms Kelsea Godfrey LVN [facility] 2023-08-14 22:11:44 Pt given printed and verbal discharge instructions regarding UTI/left ankle pain, encouraged hydration, RICE Prescriptions sent to pt's pharmacy Discussed ibuprofen and to take with food to avoid GI distress, alternate with Tylenol to help with pain and/or fever Discussed antibiotic therapy and to take until all completed unless adverse reaction occurs - if occurs, discontinue medication and follow up with pcp/seek medical attention Pt verbalized understanding of instructions,pt encouraged to follow up with pcp and or neurologist Advised to seek medical attention for new/prolonged/worsening of symptoms, No adverse reaction to meds given in ER noted upon discharge Awake, alert oriented, resp reg unlabored, skin w/d, pt leaving in no apparent distress, [place] RN [facility] 2023-08-14 20:39:48 Patient also stating back started hurting after taking Azo about 2 hours ago. [facility] 2023-08-14 20:35:27 Patient ambulatory to ED c/o left ankle pain that started on Wednesday. Patient has been taking muscle relaxer, ibu, and steroids for pain. Last medication taken Ibu earlier today. Mckenna RN [facility] 2023-08-04 11:26:11 Chief Complaint Patient presents with Vaginal Problem [facility] 2023-07-21 16:20:18 Chief Complaint Patient presents with Physical REFILLS-NURSE/MD Diana Soto MA II [employer] [facility] 2023-01-08 15:08:22 Formatting of this n ote might be different from the original. The patient is in office with c/o low back/kidney pain, pelvic pain, Urinary frequency and burning upon urination for the past 3 days. She has been taking AZO for the symptoms but it has not helped. Unable to do urine dip in office due to the use of Azo the urine is orange. Reviewed Allergies, Medications, and Asthma Questionnaire. [facility]
[2024-09-05 15:07] LABS: Absolute Basophils 0.1 K/uL (0-0.5); Absolute Eosinophils 0.6 K/uL (0-0.5); Absolute Lymphocytes (CBC) 3.5 K/uL (0.7-4.9); Absolute Monocytes 0.4 K/uL (0.1-1.3); Absolute Neutrophil 4.7 K/uL (1.8-8.0); Basophils % 1.4 % (0-1.3); Eosinophils % 6.8 % (0-4.4); Hematocrit 41.4 % (36.0-45.0); Hemoglobin 14.1 g/dL (12.0-15.0); Lymphocytes % 37.2 % (15.3-44.8); MCH 29.4 pg (27.0-35.0); MCHC 34.1 g/dL (32.0-36.0); MCV 86.4 fL (80-100); MPV 8.5 fL (7.6-11.3); Monocytes % 4.5 % (3.3-12.3); Neutrophils % 50.1 % (41.7-73.7); Platelets 252 thou/uL (152-406); RBC Red Blood Cell Count 4.79 M/uL (3.86-4.86); Red Cell Distribution Width 14.8 % (12.1-15.2)
[2024-09-05 15:09] LABS: Specific Gravity 1.024 (1.005-1.030); Urine Bilirubin NEGATIVE (Negative); Urine Blood Negative (Negative); Urine Clarity Clear (Clear); Urine Color Light-Yellow (Yellow); Urine Glucose NEGATIVE (Negative); Urine Ketones NEGATIVE (Negative); Urine Microscopic Reflex YN NO UMIC; Urine Nitrite NEGATIVE (Negative); Urine Protein NEGATIVE (Negative); Urine Urobilinogen Normal (Normal); Urine pH 6.5 (5.0-7.0)
[2024-09-05 15:14] LABS: Specific Gravity 1.024 (1.005-1.030)
[2024-09-05 15:24] LABS: Albumin 3.7 g/dL (3.4-5.0); Albumin/Globulin Ratio 0.9 (1.1-1.8); Anion Gap 3.6 mEq/L (5.0-15.0); Bilirubin Total 0.2 mg/dL (0.2-1.0); Globulin 3.9 g/dL (2.3-3.5); Potassium 3.6 mEq/L (3.5-5.1); Protein, Total 7.6 g/dL (6.4-8.2)
--- NOTE | 2024-09-05 15:44 | RAD REPORT ---
EXAMINATION: Head Brain Wo Cont CLINICAL INDICATION: Female, 44 years old.HEADACHE TECHNIQUE: Axial CT images from the skull base to the vertex without intravenous contrast. Coronal an d sagittal reformatted images were created from the data set. One or more of the following dose reduction techniques were used: Automated exposure control, adjustment of the mA and/or kV according to patient size, and/or iterative reconstruction. Unless otherwise specified, incidental findings do not require dedicated imaging follow-up. [id number]. COMPARISON: No prior exam. FINDINGS: INTRACRANIAL: No acute intracranial hemorrhage. No hydrocephalus. No mass effect or midline shift. No significant white matter disease. VASCULATURE: No visualized abnormalities in the arteries or dural venous sinuses. SCALP/SKULL: No calvarial fracture identified. No acute soft tissue abnormality. SINUSES: The visualized paranasal sinuses are mostly clear. No significant mastoid fluid. IMPRESSION: No acute intracranial abnormality.
--- NOTE | 2024-09-05 15:48 | RAD REPORT ---
EXAMINATION: Abdomen Pelvis W Contrast CLINICAL INDICATION: Female, 44 years old.ABD PAIN TECHNIQUE: CT abdomen and pelvis was performed, after the administration of IV contrast, as per [facility] protocol. Axial, sagittal and coronal reconstructions were obtained. One or more of the following dose reduction techniques were used: Automated exposure control, adjustment of the mA and/o r kV according to patient size, and/or iterative reconstruction. Unless otherwise specified, incidental findings do not require dedicated imaging follow-up. [id number]. COMPARISON: 05/24/2024 FINDINGS: LOWER CHEST: No acute process identified.Small pericardial effusion. Mild circumferential thickening of the distal esophagus which could reflect esophagitis. UPPER GI: Partial gastrectomy. LIVER: Hepatic steatosis, but otherwise unremarkable. GALLBLADDER/BILE DUCTS: Cholecystectomy.? PANCREAS: No mass, ductal dilation, or brook-pancreatic fluid. SPLEEN: Unremarkable. ADRENALS: Left adrenal lesion measuring 2.8 cm is unchanged from 05/24/2024. If further characterizat ion is required, adrenal protocol CT or MRI should be considered. KIDNEYS AND URETERS: No hydronephrosis.No suspicious renal mass. ABDOMINAL AORTA AND OTHER VESSELS: Mild atherosclerotic changes. PERITONEUM: No abnormal free fluid. No free air. LYMPH NODES: No pathologic lymphadenopathy. ABDOMINAL WALL: Unremarkable SMALL BOWEL/COLON: Small bowel has normal course and caliber. No colonic wall thickening or pericolon ic inflammatory changes.Normal appendix. Mild diverticulosis without diverticulitis. Mild formed stool burden. URINARY BLADDER: Underdistended but grossly unremarkable. REPRODUCTIVE ORGANS: Uterus surgically absent. No adnexal abnormality. MUSCULOSKELETAL: No acute or suspicious osseous abnormality. ADDITIONAL FINDINGS: None. IMPRESSION: No acute findings within the abdomen or pelvis. No appendicitis. Incidental findings as noted above.
[2024-09-05] MEDS ORDERED: ONDANSETRON 4 MG/2 ML VIAL ONE ×2 (16:34→17:20)
[2024-09-05] MEDS ORDERED: KETOROLAC 30 MG/ML INJ ONE (16:34)
[2024-09-05] MEDS ORDERED: MORPHINE 4 MG/ML SYR ONE (16:35)
[2024-09-05] MEDS ORDERED: FAMOTIDINE 20 MG/2 ML VIAL IV ONE (16:35)
[2024-09-05] MEDS ORDERED: NA CHLORIDE 0.9% 1,000 ML ONE (16:35)
--- NOTE | 2024-09-05 18:15 | EDPHYS ---
Physician Documentation [facility] Name: Amanda Ingram Age: 44 yrs Sex: Female : 1980 Arrival Date: 09/05/2024 Time: 14:11 Bed Treatment Private MD: JOHNNA Physician Koko Maza HPI: 09/05 18:00 This 44 yrs old Female presents to ER via Ambulatory with complaints of chivo Rectal Pain, Headache. 18:00 The patient presents to the emergency department with pain in the rectal area, that is chivo mild. Onset: The symptoms/episode began/occurred 2 week(s) ago. Context: the patient has no known special context relating to the rectal area complaint(s). Modifying factors: The symptoms are alleviated by remaining still, sitz baths, The symptoms are aggravated by bowel movement, movement, sitting position. Associate signs and symptoms: The patient has no apparent associated signs or symptoms. The patient has experienced similar episodes in the past, several times. Historical: - Allergies: 15:09 No Known Allergies; jl7 - Home Meds: 15:09 levothyroxine 200 mcg tab 1 tab once daily [Active]; jl7 - PMHx: 15:09 Hypothyroidism; jl7 - Immunization history:: Adult Immunizations up to date. - Infectious Disease History:: Denies. - Social history:: Smoking status: unknown. ROS: 18:02 Constitutional: Negative for fever, chills, and weight loss, Eyes: Negative for injury, chivo pain, redness, and discharge, ENT: Negative for injury, pain, and discharge, Neck: Negative for injury, pain, and swelling, Cardiovascular: Negative for chest pain, palpitations, and edema, Respiratory: Negative for shortness of breath, cough, wheezing, and pleuritic chest pain, Back: Negative for injury and pain, : Negative for injury, bleeding, discharge, and swelling, MS/Extremity: Negative for injury and deformity, Skin: Negative for injury, rash, and discoloration, Psych: Negative for depression, anxiety, suicide ideation, homicidal ideation, and hallucinations, Allergy/Immunology: Negative for hives, rash, and allergies, Endocrine: Negative for neck swelling, polydipsia, polyuria, polyphagia, and marked weight changes, Hematologic/Lymphatic: Negative for swollen nodes, abnormal bleeding, and unusual bruising, 18:02 Abdomen/GI: Positive for rectal pain, 18:02 Neuro: Positive for headache, Exam: 18:02 Constitutional: This is a well developed, well nourished patient who is awake, alert, chivo and in no acute distress. Head/Face: Normocephalic, atraumatic. Eyes: Pupils equal round and reactive to light, extra-ocular motions intact. Lids and lashes normal. Conjunctiva and sclera are non-icteric and not injected. Cornea within normal limits. Periorbital areas with no swelling, redness, or edema. ENT: Nares patent. No nasal discharge, no septal abnormalities noted. Tympanic membranes are normal and external auditory canals are clear. Oropharynx with no redness, swelling, or masses, exudates, or evidence of obstruction, uvula midline. Mucous membranes moist. Neck: Trachea midline, no thyromegaly or masses palpated, and no cervical lymphadenopathy. Supple, full range of motion without nuchal rigidity, or vertebral point tenderness. No Meningismus. Chest/axilla: Normal chest wall appearance and motion. Nontender with no deformity. No lesions are appreciated. Cardiovascular: Regular rate and rhythm with a normal S1 and S2. No gallops, murmurs, or rubs. Normal PMI, no JVD. No pulse deficits. Respiratory: Lungs have equal breath sounds bilaterally, clear to auscultation and percussion. No rales, rhonchi or wheezes noted. No increased work of breathing, no retractions or nasal flaring. Abdomen/GI: Soft, non-tender, with normal bowel sounds. No distension or tympany. No guarding or rebound. No evidence of tenderness throughout. Back: No spinal tenderness. No costovertebral tenderness. Full range of motion. Skin: Warm, dry with normal turgor. Normal color with no rashes, no lesions, and no evidence of cellulitis. MS/ Extremity: Pulses equal, no cyanosis. Neurovascular intact. Full, normal range of motion., bilateral aka Neuro: Awake and alert, GCS 15, oriented to person, place, time, and situation. Cranial nerves II-XII grossly intact. Motor strength 5/5 in all extremities. Sensory grossly intact. Cerebellar exam normal. Normal gait. Psych: Awake, alert, with orientation to person, place and time. Behavior, mood, and affect are within normal limits. 18:02 Abdomen/GI: Inspection: abdomen appears normal, Bowel sounds: normal, Palpation: abdomen is soft and non-tender, Rectal exam: is unremarkable, rectal tone normal, hemorrhoid(s), are not appreciated, mass, is not appreciated, swelling, is not appreciated, tenderness, is not appreciated, fecal impaction, is not appreciated, Vital Signs: 15:08 BP 134 / 92; Pulse 86; Resp 15; Temp 98(O); Pulse Ox 100% on R/A; Weight 81.65 kg; jl7 Height 5 ft. 9 in. ; Pain 7/10; 18:43 BP 142 / 87; Pulse 74; Resp 16; Temp 98.1; Pulse Ox 100% on R/A; iw 15:08 Body Mass Index 26.58 (81.65 kg, 175.26 cm) [facility] 15:08 Pain Scale: Adult jl7 Edmond Coma Score: 18:11 Eye Response: spontaneous(4). Motor Response: obeys commands(6). Verbal Response: chivo oriented(5). Total: 15. MDM: 14:15 Medical Screening Exam initiated chivo 18:11 Differential diagnosis: cluster headache, herpes zoster, hemorrhoids, fissure, abscess, chivo hypertensive headache, hypoglycemia, hyponatremia, migraine, sinusitis, temporal arteritis, tension headache, traumatic injuries, trigeminal neuralgia, vasomotor headache. Data reviewed: vital signs, nurses notes, lab test result(s), radiologic studies, CT scan. Consideration of Admission/Observation Escalation of care including admission/observation considered. I considered the following discharge prescriptions or medication management in the emergency department Medications were administered in the Emergency Department. See MAR. Independent interpretation of the following test(s) in the Emergency Department CT Scan: My interpretation is CT AB/PEL. Test considered but Not performed: Ultrasound NO ABD USG. Historians other than the Patient: PT WELL INFORMED. Care significantly affected by the following chronic conditions: Obesity. 09/05 14:16 Order name: CBC with Diff; Complete Time: 17:36 [facility] 09/05 14:16 Order name: CMP; Complete Time: 17:36 [facility] 09/05 14:16 Order name: Lipase; Complete Time: 17:36 [facility] 09/05 14:16 Order name: Test, Urine; Complete Time: 17:36 [facility] 09/05 14:16 Order name: Urinalysis w/ reflexes; Complete Time: 17:36 [facility] 09/05 14:16 Order name: CT Abd/Pelvis - IV Contrast Only; Complete Time: 17:36 [facility] 09/05 14:16 Order name: CT Head Brain wo Cont; Complete Time: 17:36 [facility] 09/05 14:16 Order name: IV Saline Lock; Complete Time: 14:58 [facility] 09/05 14:16 Order name: Labs collected and sent; Complete Time: 14:58 [facility] Administered Medications: 16:46 Drug: NS 0.9% IV 1000 ml IV at 1 bolus Per protocol; to be given as a bolus over 60 jl7 minutes Route: IV; Rate: 1 bolus; Site: left antecubital; 16:47 Drug: Famotidine IVP 20 mg IVP once; dilute with 10 mL 0.9% NaCl; give over 2 minutes jl7 Route: IVP; Site: left antecubital; 16:47 Drug: TORadol - Ketorolac IVP 15 mg IVP once Route: IVP; Site: left antecubital; jl7 16:47 Drug: Ondansetron IVP 4 mg IVP once; over 2 minutes Route: IVP; Site: left antecubital; jl7 16:47 Drug: morphine IVP or IV 4 mg IVP once over 4 mins Route: IVP; Infused Over: 4 mins; jl7 Site: left antecubital; 17:34 Drug: Ondansetron IVP 4 mg IVP once; over 2 minutes Route: IVP; Site: left antecubital; iw 18:43 Drug: Ciprofloxacin PO 500 mg PO once Route: PO; iw Disposition Summary: 09/05/24 18:15 Discharge Ordered Notes: Location: Home chivo Problem: new chivo Symptoms: have improved chivo Condition: Stable chivo Diagnosis - Headache chivo - Abdominal pain, unspecified - RECTAL PAIN chivo Followup: chivo - With: Private Physician - When: 2 - 3 days - Reason: Recheck today's complaints, Continuance of care, Re-evaluation by your physician Followup: chivo - With: Ck Lipscomb MD - When: 2 - 3 days - Reason: Recheck today's complaints, Re-evaluation by your physician Followup: chivo - With: Pedro Dumont MD - When: 2 - 3 days - Reason: Recheck today's complaints, Re-evaluation by your physician Discharge Instructions: - Discharge Summary Sheet chivo - Abdominal Pain, Adult chivo - General Headache Without Cause chivo - Migraine Headache chivo - How to Take a Sitz Bath chivo - Abdominal Pain, Adult, [id number] chivo - Migraine Headache, [id number] chivo - General Headache Without Cause, [id number] chivo Forms: - Medication Reconciliation Form chivo - Antibiotic Education chivo - Prescription Opioid Use chivo - Patient Portal Instructions chivo - Leadership Thank You Letter [facility] Prescriptions: - Cipro 500 mg Oral Tablet - take 1 tablet ORAL route every 12 hours for 7 days; 14 tablet; Refills: 0, chivo Product Selection Permitted - dicyclomine 20 mg Oral tablet - take 1 tablet ORAL route 4 times per day; 28 tablet; Refills: 0, Product [facility] Selection Permitted Signatures: Dispatcher [employer] Koko Desai MD MD cha Williams, Irene RN Jigar Pagan RN RN jl7 Corrections: (The following items were deleted from the chart) 14:17 14:17 Head Brain Wo Cont+CT.RAD.BRZ ordered. EDMS EDMS
--- NOTE | 2024-09-05 18:15 | ER ---
Nurse's Notes [facility] Name: Amanda Ingram Age: 44 yrs Sex: Female : 1980 Arrival Date: 09/05/2024 Time: 14:11 Bed Treatment Private MD: Diagnosis: Headache;Abdominal pain, unspecified-RECTAL PAIN Presentation: 09/05 15:08 Chief complaint: Patient states: Headache onset 1 week ago and rectal pain onset 2 jl7 weeks ago. pt states that she has seen her PCP for the headache and has had no relief. Coronavirus screen: Client denies travel out of the [place] in the last 14 days. Ebola Screen: Patient denies travel to an Ebola-affected area in the 21 days before illness onset. Initial Sepsis Screen: Does the patient meet any 2 criteria? No. Patient's initial sepsis screen is negative. Does the patient have a suspected source of infection? No. Patient's initial sepsis screen is negative. Risk Assessment: Do you want to hurt yourself or someone else? Patient reports no desire to harm self or others. Onset of symptoms was September 05, 2024. 15:08 Method Of Arrival: Ambulatory [facility] 15:08 Acuity: JAQUAN 3 jl7 Triage Assessment: 15:10 General: Appears uncomfortable, Behavior is calm, cooperative. Neuro: No deficits jl7 noted. Level of Consciousness is awake, alert, obeys commands, Oriented to person, place, time, situation, Appropriate for age Reports headache. GI: Reports Rectal pain. Historical: - Allergies: 15:09 No Known Allergies; jl7 - Home Meds: 15:09 levothyroxine 200 mcg tab 1 tab once daily [Active]; jl7 - PMHx: 15:09 Hypothyroidism; jl7 - Immunization history:: Adult Immunizations up to date. - Infectious Disease History:: Denies. - Social history:: Smoking status: unknown. Assessment: 18:43 Reassessment: Patient appears in no apparent distress at this time. Patient and/or iw family updated on plan of care and expected duration. Pain level reassessed. Patient is alert, oriented x 3, equal unlabored respirations, skin warm/dry/pink. Vital Signs: 15:08 BP 134 / 92; Pulse 86; Resp 15; Temp 98(O); Pulse Ox 100% on R/A; Weight 81.65 kg; jl7 Height 5 ft. 9 in. ; Pain 7/10; 18:43 BP 142 / 87; Pulse 74; Resp 16; Temp 98.1; Pulse Ox 100% on R/A; iw 15:08 Body Mass Index 26.58 (81.65 kg, 175.26 cm) jl7 15:08 Pain Scale: Adult jl7 [place]ide Coma Score: 18:11 Eye Response: spontaneous(4). Motor Response: obeys commands(6). Verbal Response: chivo oriented(5). Total: 15. ED Course: 14:13 Patient arrived in ED. im 14:15 Koko Maza MD is Attending Physician. [facility] 14:58 CBC with Diff Sent. [facility] 14:58 CMP Sent. [facility] 14:58 Lipase Sent. [facility] 14:58 Initial lab(s) drawn, by sd, sent to lab. Inserted saline lock: 20 gauge in left bc6 antecubital area, using aseptic technique. Blood collected. Flushed with 10 mL NS. 15:09 Triage completed. jl7 15:10 Arm band placed on right wrist. Patient placed in waiting room. jl7 15:38 CT Abd/Pelvis - IV Contrast Only In Process Unspecified. EDMS 15:38 CT Head Brain wo Cont In Process Unspecified. EDMS 16:46 Jigar Lozano, MARIA T is Primary Nurse. jl7 18:21 Ck Lipscomb MD is Referral Physician. chivo 18:22 Pedro Dumont MD is Referral Physician. chivo 18:44 No provider procedures requiring assistance completed. IV discontinued, intact, iw bleeding controlled, No redness/swelling at site. Pressure dressing applied. Administered Medications: 16:46 Drug: NS 0.9% IV 1000 ml IV at 1 bolus Per protocol; to be given as a bolus over 60 jl7 minutes Route: IV; Rate: 1 bolus; Site: left antecubital; 16:47 Drug: Famotidine IVP 20 mg IVP once; dilute with 10 mL 0.9% NaCl; give over 2 minutes jl7 Route: IVP; Site: left antecubital; 16:47 Drug: TORadol - Ketorolac IVP 15 mg IVP once Route: IVP; Site: left antecubital; jl7 16:47 Drug: Ondansetron IVP 4 mg IVP once; over 2 minutes Route: IVP; Site: left antecubital; jl7 16:47 Drug: morphine IVP or IV 4 mg IVP once over 4 mins Route: IVP; Infused Over: 4 mins; jl7 Site: left antecubital; 17:34 Drug: Ondansetron IVP 4 mg IVP once; over 2 minutes Route: IVP; Site: left antecubital; iw 18:43 Drug: Ciprofloxacin PO 500 mg PO once Route: PO; iw Outcome: 18:15 Discharge ordered by MD. waldron 18:44 Discharged to home ambulatory, iw 18:44 Condition: good 18:44 Discharge instructions given to patient, Instructed on discharge instructions, follow up and referral plans. medication usage, Demonstrated understanding of instructions, follow-up care, medications, Prescriptions given X 2, 18:44 Patient left the ED. iw Signatures: Dispatcher [employer] EDMS Koko Maza MD MD cha Williams, Irene, RN Jigar Pagan RN RN jl7 Trisha Don [facility] Ernestine Sanches
[2024-09-05] MEDS ORDERED: CIPROFLOXACIN HCL 500 MG TAB ONE (18:33)
[2024-09-05 19:22] VITALS: O2SAT 100
[2024-09-05 19:24] VITALS: BP 142/87; TEMP 98.1
== END 2024-09-05 18:44 | disposition home or self-care (01) ==
LOC: ER 14:11
DX: R51.9 Headache, unspecified (principal); K62.89 Other specified diseases of anus and rectum; E03.9 Hypothyroidism, unspecified
CPT/HCPCS: 85025; 36415; 81025; 81003; 83690; 80053; 70450; 74177; 96375; 96374; 99284; Q9967; J2405 ×2; J7030

== ENCOUNTER 2024-10-20 08:19 | Day surgery (SDC) | payer BC ==
[2024-10-18 16:26] LABS: Anion Gap 7.7 mEq/L (5.0-15.0); Potassium 3.7 mEq/L (3.5-5.1)
[2024-10-20] MEDS: Ringers Lactate 1,000 ML IV ONE (08:49)
[2024-10-20] MEDS ORDERED: propofoL 200 MG/20 ML VIAL IV ONE ×2 (09:45→10:35)
[2024-10-20] MEDS ORDERED: LIDOCAINE 1% MPF 5 ML VIAL ONE (09:45)
[2024-10-20 11:34] VITALS: O2SAT 98
[2024-10-20 11:36] VITALS: BP 112/76
[2024-10-20 11:37] VITALS: TEMP 98.2
--- NOTE | 2024-10-23 17:01 | EKG ---
Test Date: 2024-10-18 Test Time: 14:29:02 Hand Singer: JULIO MEASUREMENT RESULTS: Intervals: Rate: 83 MO: 156 QRSD: 88 QT: 388 QTc: 455 [place]: P: 60 MO: 156 QRS: 61 T: 55 INTERPRETIVE STATEMENTS: Normal sinus rhythm Possible Left atrial enlargement Borderline ECG No previous ECG available for comparison Electronically Signed On 10-23-24 16:56:11 CDT by Maurice Cowan
== END 2024-10-20 11:36 | disposition home or self-care (01) ==
LOC: OR 08:19
PROVIDERS: ATTEND Surgery
PROC: 0DJD8ZZ Inspection of Lower Intestinal Tract, Via Natural or Artificial Opening Endoscopic (ICD-10-PCS; principal; 2024-10-20 10:15)
DX: Z12.11 Encounter for screening for malignant neoplasm of colon (principal); Z91.148 Patient's other noncompliance with medication regimen for other reason
CPT/HCPCS: 93005; 80048; 36415; 45378; J2704 ×2; J2003; J7120